=== PATIENT | female | born 1945 | race Caucasian/White ===

== ENCOUNTER 2025-02-14 14:10 | Outpatient (CLI) | payer MEDICARE, SELFPAY ==
--- OUTSIDE RECORDS SUMMARY | 2025-02-14 14:23 | XMS_ITS | Encounter Summary ---
Author Organization [facility] Address 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) Social History Tobacco Use Types Packs/Day Years Used Date Smoking Tobacco: Never Assessed Comments Unknown Sex and Gender Information Value Date Recorded Sex Assigned at Not on file Legal Sex Female 4:22 AM LOSS CONTROL ENGINEER Gender Identity Not on file Sexual Orientation Not on file documented as of this encounter Plan of Treatment Upcoming Encounters Date Type Department Care Team (Late st Contact Info) Description 02/22/2025 11:15 AM CDT Office Visit [facility] Oncology and Hematology - [place]ui [address] [facility] [address] [place] [address] Sinan Vicente MD [address] [facility] [address] [place] [address] documented as of this encounter Visit Diagnoses Diagnosis Malignant neoplasm of upper-outer quadrant of female breast (CMS/HCC) Malignant neoplasm of upper-outer quadrant of female breast documented in this encounter Care Teams Science Manager Relationship Specialty Start Date End Date Master Valentin MD [address] [place] [address] PCP - General 05/23/15 documented as of this encounter
--- OUTSIDE RECORDS SUMMARY | 2025-02-14 14:23 | XMS_ITS | Encounter Summary ---
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, right (CMS/HCC) (Primary Dx) Social History Tobacco Use Types Packs/Day Years Used Date Smoking Tobacco: Former Cigarettes 0 07/14/1970 - 07/14/1989 Smokeless Tobacco: Never Comments:1989 Alcohol Use Standard Drinks/Week Comments No 0 (1 standard drink = 0.6 oz pur e alcohol) Comments No Sex and Gender Information Value Date Recorded Sex Assigned at Not on file Legal Sex Female 4:22 AM GRADUATE STUDENT INSTRUCTOR Gender Identity Not on file Sexual Orientation Not on file Occupation Industry Job Start Date Job End Date Not on file Not on file Not on file Not on file documented as of this encounter Plan of Treatment Upcoming Encounters Date Type Department Care Team (Late Contact Info) Description 02/22/2025 11:15 AM CDT Office Visit [facility] Oncology and Hematology - Rui [address] [place] [phone] Sinan Vicente MD [address] [facility] [address] [place] [address] Scheduled Orders Name Type Priority Associated Diagnoses Orde r Schedule CANCER ANTIGEN 15-3 Lab Routine 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
--- OUTSIDE RECORDS SUMMARY | 2025-02-14 14:23 | XMS_ITS | Encounter Summary ---
Author Organization [facility] Address [address] [place] [address] Care Team Providers Care Equipment Sales Specialist Name Role Phone Master Valentin MD Primary Care Provider +1- [phone] Encounter Details Date Type Department Care Team (Latest Contact Info) Description 03/11/2000 Outpatient Historical HIS X/RAY-LAB [facility] Master Valentin MD [address] [place] [address] Other screening mammogram (Primary Dx) Social History Tobacco Use Types Packs/Day Years Used Date Smoking Tobacco: Never Assessed Comments Unknown Sex and Gender Information Value Date Recorded Sex Assigned at Not on file Legal Sex Female 4:22 AM WATER QUALITY ASSISTANT Gender Identity Not on file Sexual Orientation Not on file documented as of this encounter Plan of Treatment Upcoming Encounters Date Type Department Care Team (Late st Contact Info) Description 02/22/2025 11:15 AM CDT Office Visit [facility] Oncology and Hematology - Rui [address] [facility] [address] [place] [address] Sinan Vicente MD [address] [facility] [address] [place] [address] documented as of this encounter Visit Diagnoses Diagnosis Other screening mammogram- Primary documented in this encounter Care Teams Equipment Sales Specialist Relationship Specialty Start Date End Date Master Valentin MD [address] [place] [address] PCP - General 05/23/15 documented as of this encounter
--- OUTSIDE RECORDS SUMMARY | 2025-02-14 14:23 | XMS_ITS | Encounter Summary ---
Author Organization [facility] Address 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) Social History Tobacco Use Types Packs/Day Years Used Date Smoking Tobacco: Former Cigarettes Comments:1989 Alcohol Use Standard Drinks/Week Comments No 0 (1 standard drink = 0.6 oz pur e alcohol) Comments No Sex and Gender Information Value Date Recorded Sex Assigned at Not on file Legal Sex Female 4:22 AM TREATMENT TECHNICIAN Gender Identity Not on file Sexual Orientation Not on file documented as of this encounter Plan of Treatment Upcoming Encounters Date Type Department Care Team (Late st Contact Info) Description 02/22/2025 11:15 AM CDT Office Visit [facility] Oncology and Hematology - Rui [address] [facility] [address] [place] [address] Sinan Vicente MD [address] [facility] [address] [place] [address] documented as of this encounter Visit Diagnoses Diagnosis Malignant neoplasm of upper-outer quadrant of female breast (CMS/HCC) Malignant neoplasm of upper-outer quadrant of female breast documented in this encounter Care Teams Workflow Developer Relationship Specialty Start Date End Date Master Valentin MD [address] [place] [address] PCP - General 05/23/15 documented as of this encounter
--- OUTSIDE RECORDS SUMMARY | 2025-02-14 14:23 | XMS_ITS | Encounter Summary ---
Author Organization [facility] Address [address] [place] [address] Care Team Providers Care Green Hide Inspector Name Role Phone Master Valentin MD Primary Care Provider +1- [phone] Encounter Details Date Type Department Care Team (Latest Contact Info) Description 07/31/2001 Outpatient Historical HIS IMG-LAB [facility] Master Valentin MD [address] [place] [address] SCREENING MAMM-MAILG NEOPL-OTHER (Primary Dx) Social History Tobacco Use Types Packs/Day Years Used Date Smoking Tobacco: Never Assessed Comments Unknown Sex and Gender Information Value Date Recorded Sex Assigned at Not on file Legal Sex Female 4:22 AM RISK MANAGEMENT CONSULTANT Gender Identity Not on file Sexual Orientation Not on file documented as of this encounter Plan of Treatment Upcoming Encounters Date Type Department Care Team (Late st Contact Info) Description 02/22/2025 11:15 AM CDT Office Visit [facility] Oncology and Hematology - Rui [address] [facility] [address] [place] [address] Sinan Vicente MD [address] [facility] [address] [place] [address] documented as of this encounter Visit Diagnoses Diagnosis Other screening mammogram- Primary documented in this encounter Care Teams Green Hide Inspector Relationship Specialty Start Date End Date Master Valentin MD [address] [place] [address] PCP - General 05/23/15 documented as of this encounter
--- OUTSIDE RECORDS SUMMARY | 2025-02-14 14:23 | XMS_ITS | Encounter Summary ---
Author Organization [facility] Address 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) Social History Tobacco Use Types Packs/Day Years Used Date Smoking Tobacco: Never Assessed Comments Unknown Sex and Gender Information Value Date Recorded Sex Assigned at Not on file Legal Sex Female 4:22 AM SUPERVISOR MODERN LANGUAGES Gender Identity Not on file Sexual Orientation Not on file documented as of this encounter Plan of Treatment Upcoming Encounters Date Type Department Care Team (Late st Contact Info) Description 02/22/2025 11:15 AM CDT Office Visit [facility] Oncology and Hematology - Rui [address] [facility] [address] [place] [address] Sinan Vicente MD [address] [facility] [address] [place] [address] documented as of this encounter Visit Diagnoses Diagnosis Malignant neoplasm of upper-outer quadrant of female breast (CMS/HCC) Malignant neoplasm of upper-outer quadrant of female breast documented in this encounter Care Teams Race Starter Relationship Specialty Start Date End Date Master Valentin MD [address] [place] [address] PCP - General 05/23/15 documented as of this encounter
--- OUTSIDE RECORDS SUMMARY | 2025-02-14 14:23 | XMS_ITS ---
Author Organization [employer] [address] [place] [address] [place] [address] Care Team Providers Care Rivet Tapping Machine Operator Name Role Phone Master Valentin MD Primary Care Provider +1- [phone] Active Problems Patient Care Coordination No te Formatting of this note migh t be different from the original. 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 Past Treatment and Therapy Plans No past plan information found. Lifetime Dose Tracking * Chemical Lifetime Dose Automatic Entry Manual Entr y Effective Dose 20.2 mSv 20.2 mSv 0 mSv Total DLP 916 DLP 916 DLP 0 DLP CTDIvol Max 16.6 mGy 16.6 mGy 0 mGy CTDIvol Min 13.4 mGy 13.4 mGy 0 mGy
--- OUTSIDE RECORDS SUMMARY | 2025-02-14 14:23 | XMS_ITS | Encounter Summary ---
Author Organization [facility] Address [address] [place] [address] Care Team Providers Care Call Manager Name Role Phone Master Valentin MD Primary Care Provider +1- [phone] Encounter Details Date Type Department Care Team (Latest Contact Info) Description 10/22/[address] 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 Oncology and Hematology - Rui [address] [facility] [address] [place] [address] Sinan Vicente MD [address] [facility] [address] [place] [address] documented as of this encounter Visit Diagnoses Diagnosis Malignant neoplasm of upper-outer quadrant of female breast (CMS/HCC) Malignant neoplasm of upper-outer quadrant of female breast documented in this encounter Care Teams Call Manager Relationship Specialty Start Date End Date Master Valentin MD [address] [place] [address] PCP - General 05/23/15 documented as of this encounter
--- OUTSIDE RECORDS SUMMARY | 2025-02-14 14:23 | XMS_ITS | Encounter Summary ---
Author Organization [facility] Address [address] [facility] Attn: Epic Prelude ADT LESLY HERNANDEZ [address] Care Team Providers Care Environmental Technical Officer Name Role Phone Master Valentin MD Primary Care Provider +1- [phone] Encounter Details Date Type Department Care Team (Late st Contact Info) Description 11/09/1998 Outpatient Historical Social History Tobacco Use Types Packs/Day Years Used Date Smoking Tobacco: Never Assessed Comments Unknown Sex and Gender Information Value Date Recorded Sex Assigned at Not on file Legal Sex Female 4:22 AM EDUCATIONAL TECHNOLOGIST Gender Identity Not on file Sexual Orientation Not on file documented as of this encounter Plan of Treatment Upcoming Encounters Date Type Department Care Team (Late st Contact Info) Description 02/22/2025 11:15 AM CDT Office Visit [facility] Oncology and Hematology - Rui [address] [facility] [address] [place] [address] Sinan Vicente MD [address] [facility] [address] [place] [address] documented as of this encounter Visit Diagnoses Not on filedocumented in this encounter Care Teams Environmental Technical Officer Relationship Specialty Start Date End Date Master Valentin MD [address] [place] [address] PCP - General 05/23/15 documented as of this encounter
--- OUTSIDE RECORDS SUMMARY | 2025-02-14 14:23 | XMS_ITS | Encounter Summary ---
Author Organization [facility] Address [address] [place] [address] Care Team Providers Care Hide Trimmer Name Role Phone Master Valentin MD Primary Care Provider +1- [phone] Encounter Details Date Type Department Care Team (Latest Contact Info) Description 08/12/2008 Outpatient Historical [facility] Radiation Oncology [place] [address] [place] [phone] Marcie Berman MD NO ADDRESS ON FILE Master Valentin MD [address] [place] [address] Malignant Neoplasm of Upper-Outer Quadrant of Female Breast (CMS/HCC) Social History Tobacco Use Types Packs/Day Years Used Date Smoking Tobacco: Never Assessed Comments Unknown Sex and Gender Information Value Date Recorded Sex Assigned at Not on file Legal Sex Female 4:22 AM MANAGER OF CORPORATE COMMUNICATIONS Gender Identity Not on file Sexual Orientation Not on file documented as of this encounter Plan of Treatment Upcoming Encounters Date Type Department Care Team (Late st Contact Info) Description 02/22/2025 11:15 AM CDT Office Visit [facility] Oncology and Hematology - Rui [address] [facility] [address] [place] [address] Sinan Vicente MD [address] [facility] [address] [place] [address] documented as of this encounter Visit Diagnoses Diagnosis Malignant neoplasm of upper-outer quadrant of female breast (CMS/HCC) Malignant neoplasm of upper-outer quadrant of female breast documented in this encounter Care Teams Hide Trimmer Relationship Specialty Start Date End Date Master Valentin MD [address] [place] [address] PCP - General 05/23/15 documented as of this encounter
--- OUTSIDE RECORDS SUMMARY | 2025-02-14 14:23 | XMS_ITS | Encounter Summary ---
Author Organization [facility] Address [address] [place] [address] Care Team Providers Care Manager Purchasing Name Role Phone Master Valentin MD Primary Care Provider +1- [phone] Encounter Details Date Type Department Care Team (Latest Contact Info) Description 06/22/2008 Outpatient Historical [facility] Radiation Oncology [place] [address] [place] [phone] Marcie Berman MD NO ADDRESS ON FILE Master Valentin MD [address] [place] [address] Malignant Neoplasm of Upper-Outer Quadrant of Female Breast (CMS/HCC) Social History Tobacco Use Types Packs/Day Years Used Date Smoking Tobacco: Never Assessed Comments Unknown Sex and Gender Information Value Date Recorded Sex Assigned at Not on file Legal Sex Female 4:22 AM EMPLOYMENT TRAINER Gender Identity Not on file Sexual Orientation Not on file documented as of this encounter Plan of Treatment Upcoming Encounters Date Type Department Care Team (Late st Contact Info) Description 02/22/2025 11:15 AM CDT Office Visit [facility] Oncology and Hematology - Rui [address] [facility] [address] [place] [address] Sinan Vicente MD [address] [facility] [address] [place] [address] documented as of this encounter Visit Diagnoses Diagnosis Malignant neoplasm of upper-outer quadrant of female breast (CMS/HCC) Malignant neoplasm of upper-outer quadrant of female breast documented in this encounter Care Teams Manager Purchasing Relationship Specialty Start Date End Date Master Valentin MD [address] [place] [address] PCP - General 05/23/15 documented as of this encounter
--- OUTSIDE RECORDS SUMMARY | 2025-02-14 14:23 | XMS_ITS | Clinical Summary ---
Author Organization [facility] Address [address] [place] [address] Care Team Providers Care Hunting Sales Associate Name Role Phone Unavailable Primary Care Provider Unavailabl e Social History Tobacco Use Types Packs/Day Years Used Date Smoking Tobacco: Never Assessed Comments Unknown Sex and Gender Information Value Date Recorded Sex Assigned at Not on file Legal Sex Female 4:22 PM CDT Gender Identity Not on file Sexual Orientation Not on file Plan of Treatment Health Maintenance Due Date Last Done Comments Hepatitis C 1963 DTaP, Tdap and Td Vaccines ( 1 - Tdap) 02/22/1964 Pneumococcal Vaccine: 50+ Ye ars (1 of 1 - PCV) 1995 Zoster Vaccines (1 of 2) 1995 Dexa Scan (General) 2010 RSV Immunization or 60+ Years (1 - 1-dose 75+ series) 02/22/2020 COVID-19 Vaccine (2023-2 5 season) 2024 Meningococcal B Vaccine Aged Out No l onger eligible based on patient's age to complete this topic Meningococcal Vaccine Aged Out No daniel cheryl eligible based on patient's age to complete this topic RSV Immunizations Under 20 Months Aged Out No longer eligible based on patient's age to complete this topic
--- OUTSIDE RECORDS SUMMARY | 2025-02-14 14:23 | XMS_ITS | Encounter Summary ---
Author Organization [facility] Address 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 (CMS/HCC) Social History Tobacco Use Types Packs/Day Years Used Date Smoking Tobacco: Never Assessed Comments Unknown Sex and Gender Information Value Date Recorded Sex Assigned at Not on file Legal Sex Female 4:22 AM ALMOND PASTE MIXER Gender Identity Not on file Sexual Orientation Not on file documented as of this encounter Plan of Treatment Upcoming Encounters Date Type Department Care Team (Late st Contact Info) Description 02/22/2025 11:15 AM CDT Office Visit [facility] Oncology and Hematology - Rui [address] [facility] [address] [place] [address] Sinan Vicente MD [address] [facility] [address] [place] [address] documented as of this encounter Procedures Procedure Name Priority Date/Time Associated Diagnosis Comments CANCER ANTIGEN 27-29 Routine 11/29/2008 9:49 PM CDT COMPREHENSIVE METABOLIC PANEL Routine 11/29/2008 9:49 PM CDT documented in this encounter Results * CANCER ANTIGEN 27-29 (11/29/2008 9:49 PM CDT) Pathologist [facility] CA 27-29 14 <38 U/mL [facility] Comment: THIS TEST WAS PERFORMED USING THE SIEMENS (DAVID) CHEMILUMINESCENT METHOD. VALUES OBTAINED FROM DIFFERENT ASSAY METHODS CANNOT BE USED INTERCHANGEABLY. CA27.29 LEVELS, REGARDLESS OF VALUE, SHOULD NOT BE INTERPRETED ABSOLUTE EVIDENCE OF THE PRESENCE OR ABSENCE OF DISEASE. Lab test performed by: [employer] [facility] [address] [address] [place] [place] [address] JANEEN CRAWFORD MDThitamera test was performed using the [employer]David CA 27.29 Assay. 11/29/2008 9:49 PM CDT 11/29/2008 9:57 PM CDT us Nola Morgan MD CHEMISTRY ORDERABLES COM Carolyn l Result INTERFACE SYSTEM Refer to clinic/hospital department [facility] CLIA# [id number] [address] [facility] [place] [address] * (ABNORMAL) COMPREHENSIVE METABOLIC PANEL (11/29/2008 9:49 PM CDT) [facility] CREATININE 0.77 0.51 - 0.95 mg/dL [facility] ALT 28 0 - 31 U/L [facility] SODIUM 139 135 - 145 mmol/L [facility] ALKALINE PHOSPHATASE 86 35 - 104 U/L [facility] CO2 25 22 - 30 mmol/L [facility] BILIRUBIN TOTAL 0.3 0.2 - 1.0 mg/dL [facility] POTASSIUM 4.1 3.5 - 4.9 mmol/L [facility] TOTAL PROTEIN 7.2 6.3 - 8.6 g/dL [facility] GLUCOSE 100(H) 65 - 99 mg/dL [facility] AST 26 12 - 32 U/L [facility] BUN 13 6 - 20 mg/dL [facility] CALCIUM 9.8 8.6 - 10.2 mg/dL [facility] ALBUMIN 4.5 3.4 - 4.8 g/dL [facility] CHLORIDE 102 96 - 108 mmol/L [facility] GFR, >60 >=60 mL/min/1. 7 sq meter [facility] GFR >60 >=60 mL/min/1. 7 sq meter [facility] Comment: Modification of Diet in Renal Disease (MDRD) study formula. Estimated GFR rate interpretative information for both Americans and non- Americans is available on the [facility] Intranet at: [email or web address] Select: Lab Policies and Procedures Select: Reference Ranges - GFR Blood specimen (specimen) 11/29/2008 9:49 PM CDT 11/29/2008 9:49 PM CDT us Nola Morgan MD CHEMISTRY ORDERABLES Edited INTERFACE SYSTEM Refer to clinic/hospital department [facility] CLIA# [id number] [address] [place] [address] documented in this encounter Visit Diagnoses Diagnosis Malignant neoplasm of upper-outer quadrant of female breast (CMS/HCC) Malignant neoplasm of upper-outer quadrant of female breast documented in this encounter Care Teams Air Defense Control Officer Relationship Specialty Start Date End Date Master Valentin MD [address] [place] [address] PCP - General 05/23/15 documented as of this encounter
--- OUTSIDE RECORDS SUMMARY | 2025-02-14 14:23 | XMS_ITS | Encounter Summary ---
Author Organization [facility] Address [address] [place] [address] Care Team Providers Care Venetian Blind Mechanic Name Role Phone Master Valentin MD Primary Care Provider +1- [phone] Encounter Details Date Type Department Care Team (Latest Contact Info) Description 06/23/[address] 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 Oncology and Hematology - Rui [address] [facility] [address] [place] [address] Sinan Vicente MD [address] [facility] [address] [place] [address] documented as of this encounter Visit Diagnoses Diagnosis Malignant neoplasm of upper-outer quadrant of female breast (CMS/HCC) Malignant neoplasm of upper-outer quadrant of female breast documented in this encounter Care Teams Venetian Blind Mechanic Relationship Specialty Start Date End Date Master Valentin MD [address] [place] [address] PCP - General 05/23/15 documented as of this encounter
--- OUTSIDE RECORDS SUMMARY | 2025-02-14 14:23 | XMS_ITS | Encounter Summary ---
Author Organization [facility] Address 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 Gender Identity Not on file Sexual Orientation Not on file documented as of this encounter Plan of Treatment Upcoming Encounters Date Type Department Care Team (Late st Contact Info) Description 02/22/2025 11:15 AM CDT Office Visit [facility] Oncology and Hematology - Rui [address] [facility] [address] [place] [address] Sinan Vicente MD [address] [facility] [address] [place] [address] documented as of this encounter Visit Diagnoses Diagnosis Symptomatic menopausal or female climacteric states- Primary documented in this encounter Care Teams Communications Executive Relationship Specialty Start Date End Date Master Valentin MD [address] [place] [address] PCP - General 05/23/15 documented as of this encounter
--- OUTSIDE RECORDS SUMMARY | 2025-02-14 14:23 | XMS_ITS | Clinical Summary ---
Author Organization [employer] [address] [place] [address] [place] [address] Care Team Providers Care Outpatient Phlebotomist Name Role Phone Master Valentin MD Primary Care Provider +1- [phone] Allergies Active Allergy Reactions Criticality Noted Date Comments Iodine Swelling High 10/19/2018 Latex Rash Low 09/14/2020 Nickel Hives,Rash,Swelling High 04/02/2016 Sulfa (Sulfonamide Antibiotics) Unknown 01/19/2009 As a child Sulfacetamide Sodium Nausea and Vomiting Low 2015 Medications CHOLECALCIFEROL (VITAMIN D-3 ORAL) Take by mouth. Activ e MAGNESIUM CARBONATE ORAL Take by mouth daily. Active multivitamin (DAILY-MARY) Oral tablet Take 1 Tab by mouth daily. Active OTHER MISTLETOE INJECTIONS Active BETA-GLUCAN,1-3, 1-4, BULK, MISC by Misc.(Non-Drug; Combo Route) route. Active LACTOBAC CMB #3/FOS/PANTETHIN E (PROBIOTIC & ACIDOPHILUS ORAL) Take by mouth. Activ e CALCIUM CARBONATE/VITAMI N D3 (CALCIUM + D ORAL) Take by mouth. Activ e TURMERIC ROOT EXTRACT ORAL Take by mouth. Ac tive loperamide (IMODIUM) 2 mg capsule Take 1 Capsule (2 mg) by mouth every 3 hours as needed for Diarrhea/Loose Stools. 30 Capsule 3 3 Active amoxicillin (AMOXIL) 500 mg capsule Take 4 capsules (2,000 mg) by mouth 1 hour prior to appointment. 4 Capsule 11/07/2022 4:51 PM CDT 3 Active Additional Information Patient taking differently: Take 4 capsules (2,000 mg) by mouth 1 hour prior to appointment.Only before dental appt, Reported on 11/10/2024 latanoprost (XALATAN) 0.005 % solution Administer 1 Drop in both eyes daily at bedtime. 2.5 mL 4 05/03/2023 11:47 AM CDT 3 Active latanoprost (XALATAN) 0.005 % solution INSTILL ONE DROP INTO BOTH EYES EVERY NIGHT AT BEDTIME DIRECTED 7.5 mL 4 10/28/2023 3:01 PM CDT 3 Active latanoprost (XALATAN) 0.005 % solution Administer 1 Drop in both eyes daily at bedtime. 7.5 mL 3 3 Active Insulin Syringe-Needle U-100 (Easy Touch Insulin Syringe) 1 mL 29 gauge x 1/2 Syringe Use as directed for 2 injections three times weekly 50 Each 3 03/31/2024 3:20 PM CDT 4 Active amoxicillin (AMOXIL) 500 mg capsule Take 4 capsules before dental work as directed (30-60 min before) 20 Capsule 2 10/30/2024 2:46 PM CDT 5 Active exemestane (AROMASIN) 25 mg tablet TAKE ONE TABLET BY MOUTH ONCE DAILY AFTER BREAKFAST 30 Tablet 6 02/07/2025 3:18 PM CDT 5 11/11/19 26 Active palbociclib 100 mg tablet Take 1 Tablet (100 mg) by mouth daily for 21 days on, followed by 7 days off 21 Tablet 5 5 Active latanoprost (XALATAN) 0.005 % solution INSTILL ONE DROP INTO BOTH EYES ONCE AT BEDTIME 7.5 mL 3 12/15/2024 3:03 PM CDT 5 Active Active Problems Patient Care Coordination No te Formatting of this note migh t be different from the original. 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, right (CMS/HCC) (Primary Dx) 12/07/2024 External Device Data STL ABSTRACTION Provider, Abstract 12/02/2024 External Device Data STL ABSTRACTION Provider, Abstract 12/01/2024 External Device Data STL ABSTRACTION Provider, Abstract 11/30/2024 External Device Data STL ABSTRACTION Provider, Abstract from Last 3 Months Immunizations Immunization Administration Dates Next Due (SPIKEVAX) (12 YRS UP PRIMAR Y SERIES) COVID-19 VACCINE - MRNA-1273(PF) 100 MCG/0.5 ML IM SUSP 10/29/2021,07/02/2021,06/11/2021,2020,11/14/2020 Family History Medical History Relation Name Comments Cancer Father liver Pancreatic Cancer Father Heart Disease Maternal Grandfather Other Mother diabetes Breast Cancer Neg Hx Ovarian Cancer Neg Hx Uterine Cancer Neg Hx Relation Name Status Comments Father Maternal Grandfather Mother Social History Tobacco Use Types Packs/Day Years Used Date Smoking Tobacco: Former Cigarettes 0 07/14/1970 - 07/14/1989 Smokeless Tobacco: Never Tobacco Cessation:Counseling Given: Not Answered Comments:1989 Alcohol Use Standard Drinks/Week Comments No 0 (1 standard drink = 0.6 oz pur e alcohol) Comments No Sex and Gender Information Value Date Recorded Sex Assigned at Not on file 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 Gender Identity Not on file Sexual Orientation Not on file Occupation Industry Job Start Date Job End Date Not on file Not on file Not on file Not on file Last Filed Vital Signs Vital Sign Reading Time Taken Comments Blood Pressure 141/77 12/13/2024 10:42 AM CDT Pulse 82 12/13/2024 10:37 AM CDT Temperature 36.8 C (98.2 F) 12/13/2024 10:37 AM CDT Respiratory Rate 15 12/13/2024 10:3 7 AM CDT Oxygen Saturation 96% 12/13/2024 10: 37 AM CDT Inhaled Oxygen Concentration - - Weight 84.3 kg (185 lb 12.8 oz) 025 10:37 AM CDT Height 162.6 cm (5' 4) 12/13/2024 10:3 7 AM CDT Body Mass Index 31.89 12/13/2024 10:37 AM CDT Plan of Treatment Upcoming Encounters Date Type Department Care Team (Late st Contact Info) Description 02/22/2025 11:15 AM CDT Office Visit [facility] Oncology and Hematology - Rui [address] [facility] [address] [place] [address] Sinan Vicente MD [address] [facility] [address] [place] [address] Health Maintenance Due Date Last Done Comments DTAP/TDAP/TD VACCINES (1 - Tdap) 02/22/1964 PNEUMOCOCCAL VACCINE 50+ YEA RS (1 of 2 - PCV) 02/22/1964 ZOSTER VACCINE (1 of 2) 02/22/1964 RSV VACCINE (60+ or ) (1 - 1-dose 75+ series) 02/22/2020 COVID-19 Vaccine (2023-2 5 season) 2024 04/23/2022, 10/29/2021, 07/02/2021, Additional history exists Medicare Ad[place]age ([place]) Preventative Visit/Annual Wellness Visit 07/14/2024 INFLUENZA VACCINE (#1) 2025 OSTEOPOROSIS SCREENING 07/22/2027 3, 03/02/2014, 02/24/2012, Additional history exists Procedures Procedure Name Priority Date/Time Associated Diagnosis Comments CANCER ANTIGEN 15-3 Routine 01/31/2025 1 :54 PM CDT 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 Values obtained from different assay methods cannot be used interchangeably. CA 15-3 levels, regardless of value, should not be interpreted as absolute evidence of the presence or absence of disease. Test Performed at: [facility] [address] [place] [address] Topher Lang MD Blood 01/31/2025 1:54 PM CDT 01/31/2025 1:54 PM CDT Sinan Vicente MD CHEMISTRY ORDERABLES Final Resu lt [facility] [phone] [facility] [address] [place] [address] * XR DEXA BONE DENSITY AXIAL 1 OR MORE SITES (07/22/2022 9:18 AM PEANUT ROASTER) Anatomical Region Laterality Modality Digital Radiogra phy 07/22/2022 9:18 AM PEANUT ROASTER Impressions 07/22/2022 9:30 AM PEANUT ROASTER IMPRESSION: This is a summary page. Please refer to the complete detailed report found in the Imaging Section of the [facility] EMR. Osteopenia. Lumbar Spine: T-Score: 0.1 Right Femoral Neck: T-Score: -0.4 Right Total Femur: T-Score: -0.7 Right Forearm: T-Score: -1.9 Statistical change: No significant change in BMD since the prior exam. FRAX FRACTURE RISK ASSESSMENT: (Only valid Between 40-89 Years Of Age) Risk factors: None. 10 Year Probability Of Fracture Major Osteoporotic: 8.6 % Hip: 1.1 % Comparison population: [place], Race: White A major osteoporotic fracture is defined as a fracture of the spine, forearm, hip or shoulder. Definitions: Normal: T-score above -1.0 Osteopenia T-score less than -1.0 and above -2.5 Osteoporosis: T-score <= -2.5 Follow-up Recommendations: Patients without high risk factors for osteoporosis T-score -1.0 to -1.5 - Consider repeat BMD in 5-10 years T-score -1.5 to - 2.0 - Consider repeat BMD in 3-5 years T-score -2.0 to - 2.5 - Consider repeat BMD every 2 years Patients on treatment for osteoporosis 1-2 years after initiation of treatment and every 2 years thereafter [address] Jabier Sweeney MD DICTATION LOCATION: 07/22/2022 9:30 AM PEANUT ROASTER EXAMINATION: BONE DENSITY STUDY (DXA) DATE: 07/22/2022 9:18 AM HISTORY: 77 years Female. Postmenopausal. Left hip replacement. PROCEDURE: Planar images of the lumbar spine, hip(s) and forearm(s) using a [employer] DEXA scanner for bone mineral density determination (BMD). Prior bone density: 03/02/2014 FINDINGS: Lumbar Spine (L1-L2): T-Score: 0.1 1.188 g/sq cm Prior: 1.170 g/sq cm Right Femoral Neck: T-Score: -0.4 0.983 g/sq cm Prior: 0.886 g/sq cm Right Total Femur: T-Score: -0.7 Right 33% Radius: T-Score: -1.9 0.706 g/sq cm INCIDENTAL FINDINGS: L3-L4 excluded because of statistical variation. Procedure Note Jabier Sweeney MD - 07/22/2022 EXAMINATION: BONE DENSITY STUDY (DXA) DATE: 07/22/2022 9:18 AM HISTORY: 77 years Female. Postmenopausal. Left hip replacement. PROCEDURE: Planar images of the lumbar spine, hip(s) and forearm(s) using a [employer] DEXA scanner for bone mineral density determination (BMD). Prior bone density: 03/02/2014 FINDINGS: Lumbar Spine (L1-L2): T-Score: 0.1 1.188 g/sq cm Prior: 1.170 g/sq cm Right Femoral Neck: T-Score: -0.4 0.983 g/sq cm Prior: 0.886 g/sq cm Right Total Femur: T-Score: -0.7 Right 33% Radius: T-Score: -1.9 0.706 g/sq cm INCIDENTAL FINDINGS: L3-L4 excluded because of statistical variation. IMPRESSION: This is a summary page. Please refer to the complete detailed report found in the Imaging Section of the [facility] EMR. Osteopenia. Lumbar Spine: T-Score: 0.1 Right Femoral Neck: T-Score: -0.4 Right Total Femur: T-Score: -0.7 Right Forearm: T-Score: -1.9 Statistical change: No significant change in BMD since the prior exam. FRAX FRACTURE RISK ASSESSMENT: (Only valid Between 40-89 Years Of Age) Risk factors: None. 10 Year Probability Of Fracture Major Osteoporotic: 8.6 % Hip: 1.1 % Comparison population: [place], Race: White A major osteoporotic fracture is defined as a fracture of the spine, forearm, hip or shoulder. Definitions: Normal: T-score above -1.0 Osteopenia T-score less than -1.0 and above -2.5 Osteoporosis: T-score <= -2.5 Follow-up Recommendations: Patients without high risk factors for osteoporosis T-score -1.0 to -1.5 - Consider repeat BMD in 5-10 years T-score -1.5 to - 2.0 - Consider repeat BMD in 3-5 years T-score -2.0 to - 2.5 - Consider repeat BMD every 2 years Patients on treatment for osteoporosis 1-2 years after initiation of treatment and every 2 years thereafter D[address] by Dr. Jabier Sweeney MD DICTATION LOCATION: 1 Carina Klein MD DIAGNOSTIC IMAGING ORDER MARTHA Final Result from Last 3 Months or Most Recently Relevant to Health Maintenance Insurance [facility] [employer] [employer] [employer] Care Teams Outpatient Phlebotomist Relationship Specialty Start Date End Date Master Valentin MD [address] [place] [address] PCP - General 05/23/15
--- OUTSIDE RECORDS SUMMARY | 2025-02-14 14:23 | XMS_ITS | Clinical Summary ---
Author Organization [facility] Address [address] [place], [place] [address] [address] Care Team Providers Care Marine Reporter Name Role Phone Master Valentin MD Primary Care Provider [phone]- [phone] Yaya PINON MD, [place] Unavailable [phone] Source Comments [facility],non-owned Affiliates and Associated Physician Practices is amultiple site organization consisting of ambulatory clinics and hospital sitesin [place], [place], [place] and [place]. This disclosure is being madepursuant to the Care Everywhere program and may not contain all information available regarding this patient. Last updated 18.[facility] Allergies Active Allergy Reactions Criticality Noted Date Comments Sulfa Drugs 11/06/2015 Medications * Be aware that medications may not be up to date on this document. Alwaysverify current medications with the patient. 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 Gender Identity Not on file Sexual Orientation Not on file Last Filed Vital Signs Vital Sign Reading Time Taken Comments Blood Pressure - - Pulse - - Temperature - - Respiratory Rate - - Oxygen Saturation - - Inhaled Oxygen Concentration - - Weight 81.6 kg (180 lb) 10/02/2015 11:29 AM CDT Height 162.6 cm (5' 4) 10/02/2015 11:29 AM CDT Body Mass Index 30.9 10/02/2015 11:29 AM CDT Plan of Treatment Health Maintenance Due Date Last Done Comments BONE DENSITY TESTING 1945 DTAP/TDAP/TD VACCINES (1 - Tdap) 02/22/1964 PNEUMOCOCCAL VACCINE 50+ (1 of 1 - PCV) 1995 ZOSTER VACCINE (1 of 2) 1995 Respiratory Syncytial Virus (RSV) Vaccine Pt: or over 60 yrs (1 - 1-dose 75+ series) 02/22/2020 COVID-19 VACCINE (1 - 2023-2 5 season) 2024 DEPRESSION SCREENING 07/14/2024 INFLUENZA VACCINE (#1) 2025 HEPATITIS B VACCINE Aged Out No longe r eligible based on patient's age to complete this topic HIB VACCINE Aged Out No longer eligi ble based on patient's age to complete this topic HPV VACCINE Aged Out No longer eligi ble based on patient's age to complete this topic MENINGOCOCCAL (Group B) VACC INE SHARED DECISION-MAKING Aged Out No longer eligibl e based on patient's age to complete this topic MENINGOCOCCAL GROUPS A/C/Y/W VACCINE Aged Out No longer eligible b ased on patient's age to complete this topic Insurance MANAGED MEDICARE ADV Care Teams Marine Reporter Relationship Specialty Start Date End Date Master Valentin MD [address] [facility], [address] PCP - General Family Medicine 09/21/[place] [address] [address] [place] [address] Orthopedic Surgery 11/06/15
[2025-02-14 14:24] LABS: Hematocrit 37.7 % (37.0-47.0); Hemoglobin 12.9 g/dL (12.0-15.0); Immature Granulocyte Percent A 0.4 % (0-0.5); Lymphocytes Absolute Auto 0.80 K/mm3 (0.9-3.2); Mean Corpuscular HGB Conc 34.2 g/dl (32-36); Mean Corpuscular Hemoglobin 36.2 pg (26-34); Mean Corpuscular Volume 105.9 fl (80-100); Nucleated Red Blood Cells Absolute Auto 0.000 K/mm3 (0.0-0.012); Nucleated Red Blood Cells Perc 0.0 % (0.0-0.2); Platelet Count Result 222 k/mm3 (150-375); Red Blood Count 3.56 M/mm3 (4.2-5.4); White Blood Count 2.4 K/mm3 (4.5-10.0)
[2025-02-14 14:31] LABS: Schistocytes None Seen
[2025-02-14 14:34] LABS: Macrocytosis 1+ (NORMAL)
[2025-02-14 15:35] LABS: Alanine Aminotransferase 37 U/L (6-35); Albumin Level 4.3 g/dL (3.5-5.1); Alkaline Phosphatase 64 U/L (38-126); Anion Gap 4 mmol/L (4-12); Aspartate Amino Transferase 40 U/L (14-36); Bilirubin,Total 0.5 mg/dL (0.2-1.3); Blood Urea Nitrogen 17 mg/dL (7-17); Calcium 9.7 mg/dL (8.4-10.2); Carbon Dioxide 28 mmol/L (22-30); Chloride 103 mmol/L (98-107); Estimated Glomerular Filt Rate > 60; Glucose 122 mg/dL (65-110); Potassium 4.8 mmol/L (3.4-5.0); Sodium 135 mmol/L (137-145); Total Protein 6.9 g/dL (6.3-8.2)
== END 2025-02-14 14:11 | disposition home or self-care (01) ==
LOC: ANHLAB 14:12
PROVIDERS: Visit Provider Internal Medicine Hematology & Oncology
DX: C50.011 Malignant neoplasm of nipple and areola, right female breast (principal)
CPT/HCPCS: 36415; 80053; 85025; 86300

== ENCOUNTER 2025-03-16 12:50 | Outpatient (CLI) | payer MEDICARE, SELFPAY ==
--- NOTE | ~2025-03-16 | DEXA_ITS ---
Bone Density Report Name: TABATHA LALA Age: 80 Sex: Female Ethnicity: White Date of : 1945 Indication: postmenopausal; screening for osteoporosis; height loss; prior fracture; cancer; Referring Provider: ALEXEY COLES Study: Bone densitometry was performed. Exam Date: March 16, 2025 Accession number: [id number] Bone Density: Region BMD T-score Z-score Classification AP Spine(L1-L4) 1.207 1.5 4.1 Normal Femoral Neck (Right) 0.664 -1.7 0.6 Osteopenia Total Hip (Right) 0.861 -0.7 1.4 Normal World Health Organization criteria for BMD impression classify patients as: Normal (T-score at or above -1.0), Osteopenia (T-score between -1.0 and -2.5), or Osteoporosis (T-score at or below -2.5). 10-year Fracture Risk: FRAX not reported because: Prior hip or vertebral fracture Previous Exams: Region Exam Age BMD T-score BMD Change BMD Change Date g/cm2 vs Baseline vs Previous AP Spine (L1-L4) 03/16/2025 80 1.207 1.5 0.071 (6.2%)* 0.071 (6.2%)* 04/21/2015 70 1.136 0.8 Total Hip(Right) 03/16/2025 80 0.861 -0.7 -0.008 (-0.9%) -0.008 (-0.9%) 04/21/2015 70 0.869 -0.6 *Denotes significance at 95% confidence level, LSC for AP Spine = 0.022 g/cm2, LSC for Total Hip = 0.027 g/cm2 Clinical Information Provided by Patient: Have had a previous hip or vertebral fracture Has had a low trauma fracture Has used the following medications: Vitamin D, Calcium Has the following medical conditions: Cancer Patient maximum height was 65.0 Menopause Age: 50 No regular weight bearing exercise Drinks caffeinated beverages Onset of menses at age 15 Number of children 3 Impression: The patient has low bone mass, based on the Right Femoral Neck T-score. The patient has risk factors, including: previous fracture. No significant bone loss was observed. Discussion: INCREASED RISK OF FRACTURE DUE TO HISTORY OF FRACTURE. The patient's previous fracture puts the patient at high risk of a future fracture. In untreated patients, the risk of osteoporotic fracture increases approximately two-fold for each 1.0 SD decrease in T-score. Low bone density is not the only risk factor for fracture; also consider factors such as patient's age, frailty or poor health, risk of falling, risk of injury, previous osteoporotic fracture, family history of osteoporosis, cigarette smoking, low body weight, etc. Not everyone with a low trauma fracture has osteoporosis; osteomalacia and other metabolic bone disorders should also be considered. Patients who have osteoporosis should be evaluated for specific diseases and conditions (secondary causes) that may cause or contribute to bone loss and fracture risk. National Osteoporosis Foundation (NOF) recommends pharmacologic intervention for patients with a prior hip or vertebral fracture regardless of BMD T-score. The patient should follow a healthful lifestyle (good nutrition with adequate calcium and vitamin D, and appropriate weight-bearing exercise). Follow-Up: Consider a repeat BMD and Vertebral Fracture Assessment (VFA) exam in 2 years or sooner if medically necessary, to reassess this patient's status. Reported by: COLETTE on 03/16/2025 1:34:00 PM. Reviewed, dictated and finalized at location A.
--- OUTSIDE RECORDS SUMMARY | 2025-03-16 13:59 | XMS_ITS | Encounter Summary ---
Author Organization [facility] Address [address] [place] [address] Care Team Providers Care Operations And Maintenance Specialist Name Role Phone Master Valentin MD Primary Care Provider +1- [phone] Encounter Details Date Type Department Care Team (Latest Contact Info) Description 07/31/2001 Outpatient Historical HIS IMG-LAB [facility] Master Valentin MD [address] [place] [address] FEMALE CLIMACTERIC STATE (Primary Dx) Social History Tobacco Use Types Packs/Day Years Used Date Smoking Tobacco: Never Assessed Comments Unknown Sex and Gender Information Value Date Recorded Sex Assigned at Not on file 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 [employer] Gender Identity Not on file Sexual Orientation Not on file documented as of this encounter Plan of Treatment Upcoming Encounters Date Type Department Care Team (Late st Contact Info) Description 04/07/2025 11:00 AM CDT Office Visit [facility] Oncology and Hematology - [place] [address] [facility] [address] [place] [address] Sinan Vicente MD [address] [facility] [address] [place] [address] documented as of this encounter Visit Diagnoses Diagnosis Symptomatic menopausal or female climacteric states- Primary documented in this encounter Care Teams Operations And Maintenance Specialist Relationship Specialty Start Date End Date Master Valentin MD [address] [place] [address] PCP - General 05/23/15 documented as of this encounter
--- OUTSIDE RECORDS SUMMARY | 2025-03-16 13:59 | XMS_ITS | Encounter Summary ---
Author Organization [facility] Address [address] [facility] Attn: Epic Prelude ADT LESLY HERNANDEZ [address] Care Team Providers Care Financial Associate Name Role Phone Master Valentin MD Primary Care Provider +1- [phone] Encounter Details Date Type Department Care Team (Late Contact Info) Description 11/09/1998 Outpatient Historical Social History Tobacco Use Types Packs/Day Years Used Date Smoking Tobacco: Never Assessed Comments Unknown Sex and Gender Information Value Date Recorded Sex Assigned at Not on file Legal Sex Female 4:22 AM TRANSVERSE ABDOMINAL MUSCLE NURSE Gender Identity Not on file Sexual Orientation Not on file documented as of this encounter Plan of Treatment Upcoming Encounters Date Type Department Care Team (Late st Contact Info) Description 04/07/2025 11:00 AM CDT Office Visit [facility] Oncology and Hematology - [place] [address] [facility] [address] [place] [address] Sinan Vicente MD [address] [facility] [address] [place] [address] documented as of this encounter Visit Diagnoses Not on filedocumented in this encounter Care Teams Financial Associate Relationship Specialty Start Date End Date Master Valentin MD [address] [place] [address] PCP - General 05/23/15 documented as of this encounter
--- OUTSIDE RECORDS SUMMARY | 2025-03-16 13:59 | XMS_ITS | Encounter Summary ---
Author Organization [facility] Address [address] [place] [address] Care Team Providers Care Donor Relations Officer Name Role Phone Master Valentin MD Primary Care Provider +1- [phone] Encounter Details Date Type Department Care Team (Latest Contact Info) Description 06/22/2008 Outpatient Historical [facility] Radiation Oncology [place] [address] [place] [phone] Marcie Berman MD NO ADDRESS ON FILE Master Valentin MD [address] [place] [address] Malignant Neoplasm of Upper-Outer Quadrant of Female Breast (CMS/HCC) Social History Tobacco Use Types Packs/Day Years Used Date Smoking Tobacco: Never Assessed Comments Unknown Sex and Gender Information Value Date Recorded Sex Assigned at Not on file Legal Sex Female 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 PRODUCT 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 Gender Identity Not on file Sexual Orientation Not on file documented as of this encounter Plan of Treatment Upcoming Encounters Date Type Department Care Team (Late st Contact Info) Description 04/07/2025 11:00 AM CDT Office Visit [facility] Oncology and Hematology - [place] [address] [facility] [address] [place] [address] Sinan Vicente MD [address] [facility] [address] [place] [address] documented as of this encounter Visit Diagnoses Diagnosis Malignant neoplasm of upper-outer quadrant of female breast (CMS/HCC) Malignant neoplasm of upper-outer quadrant of female breast documented in this encounter Care Teams Donor Relations Officer Relationship Specialty Start Date End Date Master Valentin MD [address] [place] [address] PCP - General 05/23/15 documented as of this encounter
--- OUTSIDE RECORDS SUMMARY | 2025-03-16 13:59 | XMS_ITS | Clinical Summary ---
Author Organization [employer] [address] [place] [address] [place] [address] Care Team Providers Care Brand Ambassadors Promotional Sales Name Role Phone Master Valentin MD Primary Care Provider +1- [phone] Allergies Active Allergy Reactions Criticality Noted Date [...] needed for Diarrhea/Loose Stools. 30 Capsule 3 Active amoxicillin (AMOXIL) 500 mg capsule [...] injections three times weekly 50 Each 3 02/20/2025 1:32 PM CDT 4 Active amoxicillin (AMOXIL) 500 mg capsule Take 4 capsules before dental work as directed (30-60 min before) 20 Capsule 2 02/20/2025 1:32 PM CDT 5 Active exemestane (AROMASIN) 25 [...] EYES ONCE AT BEDTIME 7.5 mL 3 02/20/2025 1:32 PM CDT 5 Active amoxicillin (AMOXIL) 500 mg capsule Take 4 capsules by mouth before dental work. 20 Capsule 2 03/03/2025 3:50 PM CDT 5 Active Active Problems Patient Care Coordination No te Formatting of this note migh t be different from the original. 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 Oncology and Hematology [facility] [address] [place] [address] Sinan Vicente MD XR Dexa Bone Density (Spoke with the patient to provide XR Dexa appt info) 03/01/2025 External Device Data STL ABSTRACTION Provider, Abstract 02/26/2025 11:15 AM CDT - 02/26/2025 11:59 PM CDT Hospital Encounter [facility] Imaging Services [address] [address] Master Valentin MD Discharge Disposition: Home or Self Care 02/22/2025 11:15 AM CDT Office Visit 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 Oncology and Hematology [facility] [address] [place] [address] Sinan Vicente MD 02/14/2025 Orders Only [facility] Oncology and Hematology [facility] [address] [place] [address] Sinan Vicente MD Malignant neoplasm of nipple [...] on file Legal Sex Female 4:22 AM COSTUMER ASSISTANT Gender Identity Not on file Sexual Orientation Not on file Occupation Industry Job Start Date Job End Date Not on file Not on file Not on file Not on file Last Filed Vital Signs Vital Sign Reading Time Taken Comments Blood Pressure 128/72 02/22/2025 11:16 AM CDT Pulse 92 02/22/2025 11:16 AM CDT Temperature 36.2 C (97.2 F) 02/22/2025 11:16 AM CDT Respiratory Rate 15 12/13/2024 10:37 AM CDT Oxygen Saturation 98% 02/22/2025 11:16 AM CDT Inhaled Oxygen Concentration - - Weight 83 kg (183 lb) 02/22/2025 11:16 AM CDT Height 162.6 cm (5' 4) 02/22/2025 11:16 AM CDT Body Mass Index 31.41 02/22/2025 11:16 AM CDT Plan of Treatment Upcoming Encounters Date Type Department Care Team (Late st Contact Info) Description 04/07/2025 11:00 AM CDT Office Visit [facility] Oncology and Hematology - [place] [address] [facility] [address] [place] [address] Sinan Vicente MD [address] [facility] [address] [place] [address] Health Maintenance Due Date Last Done Comments DTAP/TDAP/TD VACCINES (1 - Tdap) 02/22/1964 PNEUMOCOCCAL VACCINE 50+ YEA RS (1 of 2 - PCV) 02/22/1964 ZOSTER VACCINE (1 of 2) 02/22/1964 RSV VACCINE (60+ or ) (1 - 1-dose 75+ series) 02/22/2020 [place] ([place]) Preventative Visit/Annual Wellness Visit 07/14/2024 INFLUENZA VACCINE (#1) 2025 COVID-19 Vaccine (2024-2 6 season) 2025 04/23/2022, 10/29/2021, 07/02/2021, Additional history exists OSTEOPOROSIS SCREENING 07/22/2027 , 03/02/2014, 02/24/2012, Additional history exists Procedures Procedure Name Priority Date/Time Associated Diagnosis Comments MAMMO 3D OLGA SCREEN UNI LT W OR WO CAD Routine 02/26/2025 11:34 AM CDT Visit for screening mammogram CHG CA 15 3 Routine 02/14/2025 12:43 PM CDT COMPREHENSIVE METABOLIC PANEL Routine 02/14/2025 11:47 AM CDT CBC WITH AUTODIFFERENTIAL Routine 02/14/2025 10:47 AM CDT CBC WITH AUTODIFFERENTIAL Routine 02/14/2025 10:42 AM CDT CANCER ANTIGEN 15-3 Routine 01/31/2025 1 :54 PM CDT 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 OVERALL FINAL ASSESSMENT left breast: BI-RADS CATEGORY 2: Benign findings. ROUTINE SCREENING MAMMOGRAPHY IS RECOMMENDED IN 12 MONTHS. A normal letter will be sent to patient. Narrative 02/26/2025 2:45 PM CDT EXAM: MAMMO 3D OLGA SCREEN UNI LT W OR WO CAD STUDY DATE: 02/26/2025 11:34 AM CLINICAL INDICATION: 80 years old female presents for routine left breast screening mammography. Patient reports a history of right-sided breast cancer status post right mastectomy COMPARISON: Prior mammograms, the most recent dated 06/23/2023 PROCEDURE: CC and MLO digital mammographic views of the left breast are obtained. Computer Aided Detection (CAD) was utilized. Tomosynthesis was done with all views. FINDINGS: BREAST COMPOSITION: The breasts are heterogeneously dense, which may obscure small masses Left breast: There are stable benign calcifications in the left breast. There is a stable biopsy clip in the left retroareolar breast. There are no spiculated masses, suspicious microcalcifications or areas of architectural distortion in the left breast. Master Valentin MD MAMMO ORDERABLES Final Res ult * CHG CA 15 3 (02/14/2025 12:43 PM CDT) Sinan Vicente MD CHG - LABORATORY Final Result * COMPREHENSIVE METABOLIC PANEL (02/14/2025 11:47 AM CDT) Blood us Sinan Vicente MD CHEMISTRY ORDERABLES Final Resu lt * CBC WITH AUTODIFFERENTIAL (02/14/2025 10:47 AM CDT) Only the most recent of2 resultswithin the time period is included. Blood Sinan Vicente MD HEMATOLOGY ORDERABLES Final Res ult * CANCER ANTIGEN 15-3 (01/31/2025 1:54 PM CDT) CA 15-3 16 <32 U/mL [employer] [facility] Comment: This test was performed using the Siemens ([employer]) chemiluminescent method. Values obtained from different assay methods cannot be used interchangeably. CA 15-3 levels, regardless of value, should not be interpreted as absolute evidence of the presence or absence of disease. Test [facility]formed at: [facility] [place] [address] [place] [address] Topher Lang MD Blood 01/31/2025 1:54 PM CDT 01/31/2025 1:54 PM CDT Sinan Vicente MD CHEMISTRY ORDERABLES Final Resu lt [facility] [phone] [facility] [place] [address] [place] [address] * XR DEXA BONE DENSITY AXIAL 1 OR MORE SITES (07/22/2022 9:18 AM COSTUMER ASSISTANT) Anatomical Region Laterality Modality Digital Radiogra phy 07/22/2022 9:18 AM COSTUMER ASSISTANT Impressions 07/22/2022 9:30 AM COSTUMER ASSISTANT IMPRESSION: This is a summary page. Please refer to the complete detailed report found in the Imaging Section of the [facility] EMR. Osteopenia. Lumbar Spine: T-Score: 0.1 Right [...] Sweeney MD DICTATION LOCATION: 07/22/2022 9:30 AM COSTUMER ASSISTANT EXAMINATION: BONE DENSITY STUDY (DXA) DATE: 07/22/2022 9:18 AM HISTORY: 77 years Female. Postmenopausal. Left hip replacement. PROCEDURE: Planar images of the lumbar spine, hip(s) and forearm(s) using a LUNAR DEXA scanner for bone mineral density determination [...] lumbar spine, hip(s) and forearm(s) using a LUNAR DEXA scanner for bone mineral density determination [...] found in the Imaging Section of the [facility] EMR. Osteopenia. Lumbar Spine: T-Score: 0.1 Right [...] Most Recently Relevant to Health Maintenance Insurance [facility] AETNA Medicare Part D RX [employer] (INTERNAL) [facility] [employer] AETNA PPO [facility] Care Teams Brand Ambassadors Promotional Sales Relationship Specialty Start Date End Date Master Valentin MD [address] [place] [address] [facility] - General 05/23/15
--- OUTSIDE RECORDS SUMMARY | 2025-03-16 13:59 | XMS_ITS | Encounter Summary ---
Author Organization [facility] Address [address] [place] [address] Care Team Providers Care Auto Mechanic Apprentice Name Role Phone Master Valentin MD Primary Care Provider +1- [phone] Encounter Details Date Type Department Care Team (Latest Contact Info) Description 08/12/2008 Outpatient Historical [facility] Radiation Oncology [place] [address] [place] [phone] Marcie Berman MD NO ADDRESS ON FILE Master Valentin MD [address] [place] [address] Malignant Neoplasm of Upper-Outer Quadrant of Female Breast (CMS/HCC) Social History Tobacco Use Types Packs/Day Years Used Date Smoking Tobacco: Never Assessed Comments Unknown Sex and Gender Information Value Date Recorded Sex Assigned at Not on file Legal Sex Female 4:22 AM CRITICAL CARE NURSE PRACTITIONER Gender Identity Not on file Sexual Orientation Not on file documented as of this encounter Plan of Treatment Upcoming Encounters Date Type Department Care Team (Late st Contact Info) Description 04/07/2025 11:00 AM CDT Office Visit [facility] Oncology and Hematology - [place] [address] [facility] [address] [place] [address] Sinan Vicente MD [address] [facility] [address] [place] [address] documented as of this encounter Visit Diagnoses Diagnosis Malignant neoplasm of upper-outer quadrant of female breast (CMS/HCC) Malignant neoplasm of upper-outer quadrant of female breast documented in this encounter Care Teams Auto Mechanic Apprentice Relationship Specialty Start Date End Date Master Valentin MD [address] [place] [address] PCP - General 05/23/15 documented as of this encounter
--- OUTSIDE RECORDS SUMMARY | 2025-03-16 13:59 | XMS_ITS | Encounter Summary ---
Author Organization [facility] Address [address] [place] [address] Care Team Providers Care Vehicle Service Agent Name Role Phone Master Valentin MD Primary Care Provider +1- [phone] Encounter Details Date Type Department Care Team (Latest Contact Info) Description 06/23/2008 Outpatient Historical [facility] Radiation Oncology [place] [address] [place] [address] Marcie Berman MD NO ADDRESS ON FILE Malignant Neoplasm of Upper-Outer Quadrant of Female Breast (CMS/HCC) Social History Tobacco Use Types Packs/Day Years Used Date Smoking Tobacco: Never Assessed Comments Unknown Sex and Gender Information Value Date Recorded Sex Assigned at Not on file Legal Sex Female 4:22 AM PROJECT MANAGEMENT ANALYST Gender Identity Not on file Sexual Orientation Not on file documented as of this encounter Plan of Treatment Upcoming Encounters Date Type Department Care Team (Late st Contact Info) Description 04/07/2025 11:00 AM CDT Office Visit [facility] Oncology and Hematology - [place] [address] [facility] [address] [place] [address] Sinan Vicente MD [address] [facility] [address] [place] [address] documented as of this encounter Visit Diagnoses Diagnosis Malignant neoplasm of upper-outer quadrant of female breast (CMS/HCC) Malignant neoplasm of upper-outer quadrant of female breast documented in this encounter Care Teams Vehicle Service Agent Relationship Specialty Start Date End Date Master Valentin MD [address] [place] [address] PCP - General 05/23/15 documented as of this encounter
--- OUTSIDE RECORDS SUMMARY | 2025-03-16 13:59 | XMS_ITS ---
Author Organization [employer] [address] [place] [address] [place] [address] Care Team Providers Care Bulk Pallet Builder Name Role Phone Master Valentin MD Primary Care Provider +1- [phone] Active Problems Patient Care Coordination No te Formatting of this note migh t be different from the original. 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
--- OUTSIDE RECORDS SUMMARY | 2025-03-16 13:59 | XMS_ITS | Encounter Summary ---
Author Organization [facility] Address [address] [place] [address] Care Team Providers Care Polishing Pad Mounter Name Role Phone Master Valentin MD Primary Care Provider +- [phone] Encounter Details Date Type Department Care Team (Latest Contact Info) Description 07/31/2001 Outpatient Historical HIS IMG-LAB [facility] Master Valentin MD [address] [place] [address] SCREENING MAMM-MAILG NEOPL-OTHER (Primary Dx) Social History Tobacco Use Types Packs/Day Years Used Date Smoking Tobacco: Never Assessed Comments Unknown Sex and Gender Information Value Date Recorded Sex Assigned at Not on file Legal Sex Female 4:22 AM WOOL CARDER Gender Identity Not on file Sexual Orientation Not on file documented as of this encounter Plan of Treatment Upcoming Encounters Date Type Department Care Team (Late st Contact Info) Description 04/07/2025 11:00 AM CDT Office Visit [facility] Oncology and Hematology - [place] [address] [facility] [address] [place] [address] Sinan Vicente MD [address] [facility] [address] [place] [address] documented as of this encounter Visit Diagnoses Diagnosis Other screening mammogram- Primary documented in this encounter Care Teams Polishing Pad Mounter Relationship Specialty Start Date End Date Master Valentin MD [address] [place] [address] PCP - General 05/23/15 documented as of this encounter
--- OUTSIDE RECORDS SUMMARY | 2025-03-16 13:59 | XMS_ITS | Encounter Summary ---
Author Organization [facility] Address [address] [place] [address] Care Team Providers Care Wastewater Plant Civil Engineer Name Role Phone Master Valentin MD Primary Care Provider +1- [phone] Encounter Details Date Type Department Care Team (Latest Contact Info) Description 03/11/2000 Outpatient Historical HIS X/RAY-LAB [facility] Master Valentin MD [address] [place] [address] Other screening mammogram (Primary Dx) Social History Tobacco Use Types Packs/Day Years Used Date Smoking Tobacco: Never Assessed Comments Unknown Sex and Gender Information Value Date Recorded Sex Assigned at Not on file Legal Sex Female 4:22 AM SHOE CLERK Gender Identity Not on file Sexual Orientation Not on file documented as of this encounter Plan of Treatment Upcoming Encounters Date Type Department Care Team (Late st Contact Info) Description 04/07/2025 11:00 AM CDT Office Visit [facility] Oncology and Hematology - [place] [address] [facility] [address] [place] [address] Sinan Vicente MD [address] [facility] [address] [place] [address] documented as of this encounter Visit Diagnoses Diagnosis Other screening mammogram- Primary documented in this encounter Care Teams Wastewater Plant Civil Engineer Relationship Specialty Start Date End Date Master Valentin MD [address] [place] [address] PCP - General 05/23/15 documented as of this encounter
--- OUTSIDE RECORDS SUMMARY | 2025-03-16 13:59 | XMS_ITS | Encounter Summary ---
Author Organization [facility] Address [address] [place] [address] Care Team Providers Care Supervisor Park Workers Name Role Phone Master Valentin MD Primary Care Provider +1- [phone] Encounter Details Date Type Department Care Team (Latest Contact Info) Description 11/23/2008 Outpatient Historical [facility] Radiation Oncology [place] [address] [address] [place] [phone] Marcie Berman MD NO ADDRESS ON FILE Master Valentin MD [address] [place] [address] Malignant Neoplasm of Upper-Outer Quadrant of Female Breast (CMS/HCC) Social History Tobacco Use Types Packs/Day Years Used Date Smoking Tobacco: Never Assessed Comments Unknown Sex and Gender Information Value Date Recorded Sex Assigned at Not on file Legal Sex Female 4:22 AM PERSONNEL QUALITY ASSURANCE AUDITOR Gender Identity Not on file Sexual Orientation Not on file documented as of this encounter Plan of Treatment Upcoming Encounters Date Type Department Care Team (Late st Contact Info) Description 04/07/2025 11:00 AM CDT Office Visit [facility] Oncology and Hematology - [place] [address] [facility] [address] [place] [address] Sinan Vicente MD [address] [facility] [address] [place] [address] documented as of this encounter Visit Diagnoses Diagnosis Malignant neoplasm of upper-outer quadrant of female breast (CMS/HCC) Malignant neoplasm of upper-outer quadrant of female breast documented in this encounter Care Teams Supervisor Park Workers Relationship Specialty Start Date End Date Master Valentin MD [address] [place] [address] PCP - General 05/23/15 documented as of this encounter
--- OUTSIDE RECORDS SUMMARY | 2025-03-16 14:00 | XMS_ITS | Clinical Summary ---
Author Organization [facility] Address [address] [place] [address] Care Team Providers Care Block Press Operator Name Role Phone Unavailable Primary Care Provider Unavailabl e Social History Tobacco Use Types Packs/Day Years Used Date Smoking Tobacco: Never Assessed Comments Unknown Sex and Gender Information Value Date Recorded Sex Assigned at Not on file Legal Sex Female 4:22 PM CDT Gender Identity Not on file Sexual Orientation Not on file Plan of Treatment Health Maintenance Due Date Last Done Comments DTaP, Tdap and Td Vaccines ( 1 - Tdap) 02/22/1964 Pneumococcal Vaccine: 50+ Ye ars (1 of 1 - PCV) 1995 Zoster Vaccines (1 of 2) 1995 Dexa Scan (General) 2010 RSV Immunization or 60+ Years (1 - 1-dose 75+ series) 02/22/2020 COVID-19 Vaccine (2023-2 5 season) 2025 Meningococcal B Vaccine Aged Out No l onger eligible based on patient's age to complete this topic Meningococcal Vaccine Aged Out No daniel cheryl eligible based on patient's age to complete this topic RSV Immunizations Under 20 Months Aged Out No longer eligible based on patient's age to complete this topic
--- OUTSIDE RECORDS SUMMARY | 2025-03-16 14:00 | XMS_ITS | Clinical Summary ---
Author Organization [facility] Address [address] [place] [address] [place] [address] Care Team Providers Care Patrol Supervisor Name Role Phone Master Valentin MD Primary Care Provider +1- [phone] Yaya PINON MD, Calos Unavailable [phone] Source Comments [facility],non-owned Affiliates and Associated Physician Practices is amultiple site organization consisting of ambulatory clinics and hospital sitesin [place], [place], [place] and [place]. This disclosure is being madepursuant to the Care Everywhere program and may not contain all information available regarding this patient. Last updated 18.[facility] Allergies Active Allergy Reactions Criticality [...] on file Legal Sex Female 5:28 AM VEGETABLES COOK Gender Identity Not on file Sexual Orientation [...] yrs (1 - 1-dose 75+ series) 02/22/2020 DEPRESSION SCREENING 07/14/2024 COVID-19 VACCINE (1 - 2023-2 5 season) 2025 INFLUENZA VACCINE (#1) 2025 HEPATITIS B VACCINE [...] topic Insurance MANAGED MEDICARE ADV Care Teams Patrol Supervisor Relationship Specialty Start Date End Date Master Valentin MD [address] [facility], [address] PCP - General Family Medicine 09/21/15 [place] [address] [address] [place] [address] Orthopedic Surgery 11/06/15
--- OUTSIDE RECORDS SUMMARY | 2025-03-16 14:00 | XMS_ITS | Encounter Summary ---
Author Organization [facility] Address [address] [place] [address] Care Team Providers Care It Business Process Architect Name Role Phone Master Valentin MD Primary Care Provider +1- [phone] Encounter Details Date Type Department Care Team (Latest Contact Info) Description 03/08/2009 Outpatient Historical [facility] Dflt Department Marcie Berman MD NO ADDRESS [...] on file Legal Sex Female 4:22 AM TOOL MAKER Gender Identity Not on file Sexual Orientation Not on file documented as of this encounter Plan of Treatment Upcoming Encounters Date Type Department Care Team (Late st Contact Info) Description 04/07/2025 11:00 AM CDT Office Visit [facility] Oncology and Hematology - Rui [address] [facility] [address] [place] [address] Sinan Vicente MD [address] [facility] [address] [place] [address] documented as of this encounter Visit Diagnoses Diagnosis Malignant neoplasm of upper-outer quadrant of female breast (CMS/HCC) Malignant neoplasm of upper-outer quadrant of female breast documented in this encounter Care Teams It Business Process Architect Relationship Specialty Start Date End Date Master Valentin MD [address] [place] [address] PCP - General 05/23/15 documented as of this encounter
--- OUTSIDE RECORDS SUMMARY | 2025-03-16 14:00 | XMS_ITS | Encounter Summary ---
Author Organization [facility] Address [address] [place] [address] Care Team Providers Care Vice President Residential Solar Sales Name Role Phone Master Valentin MD Primary Care Provider +1- [phone] Encounter Details Date Type Department Care Team (Latest Contact Info) Description 09/20/2008 Outpatient Historical [facility] Radiation Oncology [place] [address] [place] [phone] Marcie Berman MD NO ADDRESS ON FILE Master Valentin MD [address] [place] [address] Malignant Neoplasm of Upper-Outer Quadrant of Female Breast (CMS/HCC) Social History Tobacco Use Types Packs/Day Years Used Date Smoking Tobacco: Never Assessed Comments Unknown Sex and Gender Information Value Date Recorded Sex Assigned at Not on file Legal Sex Female 4:22 AM FELLER OPERATOR Gender Identity Not on file Sexual Orientation Not on file documented as of this encounter Plan of Treatment Upcoming Encounters Date Type Department Care Team (Late st Contact Info) Description 04/07/2025 11:00 AM CDT Office Visit [facility] Oncology and Hematology - Rui [address] [facility] [address] [place] [address] Sinan Vicente MD [address] [facility] [address] [place] [address] documented as of this encounter Visit Diagnoses Diagnosis Malignant neoplasm of upper-outer quadrant of female breast (CMS/HCC) Malignant neoplasm of upper-outer quadrant of female breast documented in this encounter Care Teams Vice President Residential Solar Sales Relationship Specialty Start Date End Date Master Valentin MD [address] [place] [address] PCP - General 05/23/15 documented as of this encounter
--- OUTSIDE RECORDS SUMMARY | 2025-03-16 14:00 | XMS_ITS | Encounter Summary ---
Author Organization [facility] Address 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 Female 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 Gender Identity Not on file Sexual Orientation Not on file documented as of this encounter Plan of Treatment Upcoming Encounters Date Type Department Care Team (Late st Contact Info) Description 04/07/2025 11:00 AM CDT Office Visit [facility] Oncology and Hematology - Rui [address] [facility] [address] [place] [address] Sinan Vicente MD [address] [facility] [address] [place] [address] documented as of this encounter Procedures Procedure Name Priority Date/Time Associated Diagnosis Comments CANCER ANTIGEN 27-29 Routine 11/29/2008 9:49 PM CDT COMPREHENSIVE METABOLIC PANEL Routine 11/29/2008 9:49 PM CDT documented in this encounter Results * CANCER ANTIGEN 27-29 (11/29/2008 9:49 PM CDT) Pathologist [facility] CA 27-29 14 <38 U/mL [facility] Comment: THIS TEST WAS PERFORMED USING THE SIEMENS (DAVID) CHEMILUMINESCENT METHOD. VALUES OBTAINED FROM DIFFERENT ASSAY METHODS CANNOT BE USED INTERCHANGEABLY. CA27.29 LEVELS, REGARDLESS OF VALUE, SHOULD NOT BE INTERPRETED ABSOLUTE EVIDENCE OF THE PRESENCE OR ABSENCE OF DISEASE. Lab test performed by: [employer] [facility] [id number] [address] [place] [place] [address] JANEEN CRAWFORD MDThitamera test was performed using the [employer]/David CA 27.29 Assay. 11/29/2008 9:49 PM CDT 11/29/2008 9:57 PM CDT us Nola Morgan MD CHEMISTRY ORDERABLES COM Carolyn l Result INTERFACE SYSTEM Refer to clinic/hospital department [facility] CLIA# [id number] [address] [facility] [place] [address] * (ABNORMAL) COMPREHENSIVE METABOLIC PANEL (11/29/2008 9:49 PM CDT) [facility] CREATININE 0.77 0.51 - 0.95 mg/dL [facility] ALT 28 0 - 31 U/L [facility] SODIUM 139 135 - 145 mmol/L [facility] ALKALINE PHOSPHATASE 86 35 - 104 U/L [facility] CO2 25 22 - 30 mmol/L [facility] BILIRUBIN TOTAL 0.3 0.2 - 1.0 mg/dL [facility] POTASSIUM 4.1 3.5 - 4.9 mmol/L [facility] TOTAL PROTEIN 7.2 6.3 - 8.6 g/dL [facility] GLUCOSE 100(H) 65 - 99 mg/dL [facility] AST 26 12 - 32 U/L [facility] BUN 13 6 - 20 mg/dL [facility] CALCIUM 9.8 8.6 - 10.2 mg/dL [facility] ALBUMIN 4.5 3.4 - 4.8 g/dL [facility] CHLORIDE 102 96 - 108 mmol/L [facility] GFR, >60 >=60 mL/min/1. 7 sq meter [facility] GFR >60 >=60 mL/min/1. 7 sq meter [facility] Comment: Modification of Diet in Renal Disease (MDRD) study formula. 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
--- OUTSIDE RECORDS SUMMARY | 2025-03-16 14:00 | XMS_ITS | Encounter Summary ---
Author Organization [facility] Address 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) Social History Tobacco Use Types Packs/Day Years Used Date Smoking Tobacco: Never Assessed Comments Unknown Sex and Gender Information Value Date Recorded Sex Assigned at Not on file Legal Sex Female 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 PRODUCTION ASSISTANT Gender Identity Not on file Sexual Orientation Not on file documented as of this encounter Plan of Treatment Upcoming Encounters Date Type Department Care Team (Late st Contact Info) Description 04/07/2025 11:00 AM CDT Office Visit [facility] Oncology and Hematology - Rui [address] [facility] 200 [place] [address] Sinan Vicente MD [address] [facility] [address] [place] [address] documented as of this encounter Visit Diagnoses Diagnosis Malignant neoplasm of upper-outer 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
== END 2025-03-16 12:51 | disposition home or self-care (01) ==
LOC: ANHFOHIMG 12:54
PROVIDERS: Visit Provider Internal Medicine Hematology & Oncology
DX: M85.89 Other specified disorders of bone density and structure, multiple sites (principal); M85.851 Other specified disorders of bone density and structure, right thigh
CPT/HCPCS: 77080

== ENCOUNTER 2025-04-01 11:46 | Outpatient (CLI) | payer MEDICARE, SELFPAY ==
--- OUTSIDE RECORDS SUMMARY | 2025-04-01 11:49 | XMS_ITS | Encounter Summary ---
Author Organization [facility] Address 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) Social History Tobacco Use Types Packs/Day Years Used Date Smoking Tobacco: Never Assessed Comments Unknown Sex and Gender Information Value Date Recorded Sex Assigned at Not on file Legal Sex Female 4:22 AM BIT SHAVER Gender Identity Not on file Sexual Orientation Not on file documented as of this encounter Plan of Treatment Upcoming Encounters Date Type Department Care Team (Late st Contact Info) Description 04/07/2025 11:00 AM CDT Office Visit [facility] Oncology and Hematology - Rui [address] [facility] 200 [place] [address] Sinan Vicente MD [address] [facility] [address] [place] [address] documented as of this encounter Visit Diagnoses Diagnosis Malignant neoplasm of upper-outer quadrant of female breast (CMS/HCC) Malignant neoplasm of upper-outer quadrant of female breast documented in this encounter Care Teams Mgmt Consultant Relationship Specialty Start Date End Date Master Valentin MD [address] [place] [address] PCP - General 05/23/15 documented as of this encounter
--- OUTSIDE RECORDS SUMMARY | 2025-04-01 11:49 | XMS_ITS | Encounter Summary ---
Author Organization [facility] Address 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) Social History Tobacco Use Types Packs/Day Years Used Date Smoking Tobacco: Never Assessed Comments Unknown Sex and Gender Information Value Date Recorded Sex Assigned at Not on file Legal Sex Female 4:22 AM CLIENT CARE COORDINATOR Gender Identity Not on file Sexual Orientation Not on file documented as of this encounter Plan of Treatment Upcoming Encounters Date Type Department Care Team (Late st Contact Info) Description 04/07/2025 11:00 AM CDT Office Visit [facility] Oncology and Hematology - Rui [address] [facility] 200 [place] [address] Sinan Vicente MD [address] [facility] [address] [place] [address] documented as of this encounter Visit Diagnoses Diagnosis Malignant neoplasm of upper-outer quadrant of female breast (CMS/HCC) Malignant neoplasm of upper-outer quadrant of female breast documented in this encounter Care Teams Sample Maker Original Relationship Specialty Start Date End Date Master Valentin MD [address] [place] [address] PCP - General 05/23/15 documented as of this encounter
--- OUTSIDE RECORDS SUMMARY | 2025-04-01 11:49 | XMS_ITS | Clinical Summary ---
Author Organization [facility] Address [address] [place] [address] Care Team Providers Care Auxiliary Plant Operator Name Role Phone Unavailable Primary Care [...]
--- OUTSIDE RECORDS SUMMARY | 2025-04-01 11:49 | XMS_ITS | Encounter Summary ---
Author Organization [facility] Address 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 Oncology and Hematology - Rui [address] [facility] 200 [place] [address] Sinan Vicente MD [address] [facility] [address] [place] [address] documented as of this encounter Procedures Procedure Name Priority Date/Time Associated Diagnosis Comments CANCER ANTIGEN 27-29 Routine 11/29/2008 9:49 PM CDT COMPREHENSIVE METABOLIC PANEL Routine 11/29/2008 9:49 PM CDT documented in this encounter Results * CANCER ANTIGEN 27-29 (11/29/2008 9:49 PM CDT) Pathologist [facility] CA 27-29 14 <38 U/mL [facility] Comment: THIS TEST WAS PERFORMED USING THE SIEMENS (DAVID) CHEMILUMINESCENT METHOD. VALUES OBTAINED FROM DIFFERENT ASSAY METHODS CANNOT BE USED INTERCHANGEABLY. CA27.29 LEVELS, REGARDLESS OF VALUE, SHOULD NOT BE INTERPRETED ABSOLUTE EVIDENCE OF THE PRESENCE OR ABSENCE OF DISEASE. Lab test performed by: [employer] [facility] [id number] [address] [place] [id number] JANEEN CRAWFORD MDThitamera test was performed using the [employer]/David CA 27.29 Assay. 11/29/2008 9:49 PM CDT 11/29/2008 9:57 PM CDT us Nola Morgan MD CHEMISTRY ORDERABLES COM Carolyn l Result INTERFACE SYSTEM Refer to clinic/hospital department [facility] CLIA# [id number] [address] [facility] [place] [address] * (ABNORMAL) COMPREHENSIVE METABOLIC PANEL (11/29/2008 9:49 PM CDT) [facility] CREATININE 0.77 0.51 - 0.95 mg/dL [facility] ALT 28 0 - 31 U/L [facility] SODIUM 139 135 - 145 mmol/L [facility] ALKALINE PHOSPHATASE 86 35 - 104 U/L [facility] CO2 25 22 - 30 mmol/L [facility] BILIRUBIN TOTAL 0.3 0.2 - 1.0 mg/dL [facility] POTASSIUM 4.1 3.5 - 4.9 mmol/L [facility] TOTAL PROTEIN 7.2 6.3 - 8.6 g/dL [facility] GLUCOSE 100(H) 65 - 99 mg/dL [facility] AST 26 12 - 32 U/L [facility] BUN 13 6 - 20 mg/dL [facility] CALCIUM 9.8 8.6 - 10.2 mg/dL [facility] ALBUMIN 4.5 3.4 - 4.8 g/dL [facility] CHLORIDE 102 96 - 108 mmol/L [facility] GFR, >60 >=60 mL/min/1. 7 sq meter [facility] GFR >60 >=60 mL/min/1. 7 sq meter [facility] Comment: Modification of Diet in Renal Disease (MDRD) study formula. 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
--- OUTSIDE RECORDS SUMMARY | 2025-04-01 11:49 | XMS_ITS | Encounter Summary ---
Author Organization [facility] Address 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 Gender Identity Not on file Sexual Orientation Not on file documented as of this encounter Plan of Treatment Upcoming Encounters Date Type Department Care Team (Late st Contact Info) Description 04/07/2025 11:00 AM CDT Office Visit [facility] ([facility] Oncology and Hematology - [place]ui [address] [facility] [address] [place] [address] Sinan Vicente MD [address] [facility] [address] [place] [address] documented as of this encounter Visit Diagnoses Diagnosis Other screening mammogram- Primary documented in this encounter Care Teams Oil And Gas Recruiter Relationship Specialty Start Date End Date Master Valentin MD [address] [place] [address] PCP - General 05/23/15 documented as of this encounter
--- OUTSIDE RECORDS SUMMARY | 2025-04-01 11:49 | XMS_ITS | Encounter Summary ---
Author Organization [facility] Address 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) Social History Tobacco Use Types Packs/Day Years Used Date Smoking Tobacco: Never Assessed Comments Unknown Sex and Gender Information Value Date Recorded Sex Assigned at Not on file Legal Sex Female 4:22 AM COOK FRY Gender Identity Not on file Sexual Orientation Not on file documented as of this encounter Plan of Treatment Upcoming Encounters Date Type Department Care Team (Late st Contact Info) Description 04/07/2025 11:00 AM CDT Office Visit [facility] Oncology and Hematology - [place]ui [address] [facility] 200 [place] [address] Sinan Vicente MD [address] [facility] [address] [place] [address] documented as of this encounter Visit Diagnoses Diagnosis Malignant neoplasm of upper-outer quadrant of female breast (CMS/HCC) Malignant neoplasm of upper-outer quadrant of female breast documented in this encounter Care Teams Radio Broadcaster Relationship Specialty Start Date End Date Master Valentin MD [address] [place] [address] PCP - General 05/23/15 documented as of this encounter
--- OUTSIDE RECORDS SUMMARY | 2025-04-01 11:49 | XMS_ITS | Clinical Summary ---
Author Organization [facility] Address [address] [place] [address] [place] [address] Care Team Providers Care Chuck Wagon Driver Name Role Phone Master Valentin MD Primary Care Provider +1- [phone] Yaya PINON MD, [place] Unavailable [phone] Source Comments [facility],non-owned Affiliates and Associated Physician Practices is amultiple site organization consisting of ambulatory clinics and hospital sitesin [place], [place]. This disclosure is being madepursuant to the Care Everywhere program and may not contain all information available regarding this patient. Last updated 18.[facility] Allergies Active Allergy Reactions Criticality Noted Date [...] on file Legal Sex Female 5:28 AM HOTBED OPERATOR Gender Identity Not on file Sexual [...] topic Insurance MANAGED MEDICARE ADV Care Teams Chuck Wagon Driver Relationship Specialty Start Date End Date Master Valentin MD [address] [facility], [address] PCP - General Family Medicine 09/21/15 [place] [address] [place] [address] Orthopedic Surgery 11/06/15
--- OUTSIDE RECORDS SUMMARY | 2025-04-01 11:49 | XMS_ITS | Encounter Summary ---
Author Organization [facility] Address 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) Social History Tobacco Use Types Packs/Day Years Used Date Smoking Tobacco: Never Assessed Comments Unknown Sex and Gender Information Value Date Recorded Sex Assigned at Not on file Legal Sex Female 4:[address] Gender Identity Not on file Sexual Orientation Not on file documented as of this encounter Plan of Treatment Upcoming Encounters Date Type Department Care Team (Late st Contact Info) Description 04/07/2025 11:00 AM CDT Office Visit [facility] Oncology and Hematology - [place]ui [address] [facility] [address] [place] [address] Sinan Vicente MD [address] [facility] [address] [place] [address] documented as of this encounter Visit Diagnoses Diagnosis Malignant neoplasm of upper-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
--- OUTSIDE RECORDS SUMMARY | 2025-04-01 11:49 | XMS_ITS | Clinical Summary ---
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 Other lymphedema 03/01/2013 Malignant neoplasm of female breast 02/09/2009 Overview (03/01/2013): 2009;Locally advanced R breast cancer, ER+,invasive lobular Trial of neoadjuvent Femara Mastectomy/LN, [id number] III Continued Femara: post-op RT Chronic lymphedema Breast cancer Encounters Date Type Department Care Team Description 03/29/2025 External Device Data STL ABSTRACTION Provider, Abstract 03/21/2025 Orders Only [facility] Oncology and Hematology [facility] [address] [place] [phone] Sinan Vicente MD 03/07/2025 Telephone [facility] Oncology and Hematology [facility] [address] [place] [phone] Sinan Vicente MD XR Dexa Bone Density (Spoke with the patient to provide XR Dexa appt info) 03/01/2025 External Device Data STL ABSTRACTION Provider, Abstract 02/26/2025 11:15 AM CDT - 02/26/2025 11:59 PM CDT Hospital Encounter [facility] Imaging Services [address] [phone] Master Valentin MD Discharge Disposition: Home or Self Care 02/22/2025 11:15 AM CDT Office Visit [facility] Oncology and Hematology [facility] [address] [place] [phone] Sinan Vicente MD 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, right (CMS/HCC) (Primary Dx); Osteopenia of multiple sites 02/15/2025 External Device Data STL ABSTRACTION Provider, Abstract 02/15/2025 Orders Only [facility] Oncology and Hematology [place] [address] [place] [phone] Sinan Vicente MD 02/14/2025 Orders Only [facility] Oncology and Hematology [place] [address] [place] [address] Sinan Vicente MD Malignant neoplasm of nipple [...] on file Legal Sex Female 4:22 AM REGULATOR ASSEMBLER Gender Identity Not on file Sexual Orientation [...] 04/07/2025 11:00 AM CDT Office Visit [facility] Oncology and Hematology - [place] [address] [facility] [address] [place] [address] Sinan Vicente MD [address] [facility] [address] [place] [address] Health Maintenance Due Date Last Done Comments DTAP/TDAP/TD VACCINES (1 - Tdap) 02/22/1964 PNEUMOCOCCAL VACCINE 50+ YEA RS (1 of 2 - PCV) 02/22/1964 ZOSTER VACCINE (1 of 2) 02/22/1964 RSV VACCINE (60+ or ) (1 - 1-dose 75+ series) 02/22/2020 Medicare [place]age ([place]) Preventative Visit/Annual Wellness Visit 07/14/2024 INFLUENZA VACCINE (#1) 2025 COVID-19 Vaccine (7 - 2024-2 6 season) 2025 04/23/2022, 10/29/2021, 07/02/2021, Additional history exists OSTEOPOROSIS SCREENING 07/22/2027 , 03/02/2014, 02/24/2012, Additional history exists Procedures Procedure Name Priority Date/Time Associated Diagnosis Comments NM BONE DENSITY Routine 03/16/2025 9:20 AM CDT MAMMO 3D OLGA SCREEN UNI LT W [...] OR MORE SITES Routine 07/22/2022 9:18 AM REGULATOR ASSEMBLER Aromatase inhibitor use from Last 3 Months or Most Recently Relevant to Health Maintenance Results * NM BONE DENSITY (03/16/2025 9:20 AM CDT) Anatomical Region Laterality Modality Nuclear Medicine us Sinan Vicente MD NM ORDERABLES Final Result * MAMMO 3D OLGA SCREEN UNI LT [...] of architectural distortion in the left breast. us Master Valentin MD MAMMO ORDERABLES Final Res ult * CHG CA 15 3 (02/14/2025 12:43 PM CDT) us Sinan Vicente MD CHG - LABORATORY Final Result * COMPREHENSIVE METABOLIC PANEL (02/14/2025 11:47 AM CDT) Blood Sinan Vicente MD CHEMISTRY ORDERABLES Final Resu lt * CBC WITH AUTODIFFERENTIAL (02/14/2025 10:47 AM CDT) Only the most recent of2 resultswithin the time period is included. Blood Sinan Vicente MD HEMATOLOGY ORDERABLES Final Res ult * CANCER ANTIGEN 15-3 (01/31/2025 1:54 PM CDT) CA 15-3 16 <32 U/mL [facility] Comment: This test was performed using the Siemens ([employer]) chemiluminescent method. Values obtained from different assay methods cannot be used interchangeably. CA 15-3 levels, regardless of value, should not be interpreted as absolute evidence of the presence or absence of disease. Test Performed at: [facility] [address] [place] [address] Topher Lang MD Blood 01/31/2025 1:54 PM CDT 01/31/2025 1:54 PM CDT Sinan Vicente MD CHEMISTRY ORDERABLES Final Resu lt [facility] [phone] [facility] [address] [place] [address] * XR DEXA BONE DENSITY AXIAL 1 OR MORE SITES (07/22/2022 9:18 AM REGULATOR ASSEMBLER) Anatomical Region Laterality Modality Digital Radiogra phy 07/22/2022 9:18 AM REGULATOR ASSEMBLER Impressions 07/22/2022 9:30 AM REGULATOR ASSEMBLER IMPRESSION: This is a summary page. Please refer to the complete detailed report found in the Imaging Section of the [facility] EMR. Osteopenia. Lumbar Spine: T-Score: 0.1 [...] Sweeney MD DICTATION LOCATION: 07/22/2022 9:30 AM REGULATOR ASSEMBLER EXAMINATION: BONE DENSITY STUDY (DXA) DATE: 07/22/2022 9:18 AM HISTORY: 77 years Female. Postmenopausal. Left hip replacement. PROCEDURE: Planar images of the lumbar spine, hip(s) and forearm(s) using a [employer] DEXA scanner for bone mineral density determination [...] lumbar spine, hip(s) and forearm(s) using a [employer] DEXA scanner for bone mineral density determination [...] found in the Imaging Section of the [facility] EMR. Osteopenia. Lumbar Spine: T-Score: 0.1 [...] Most Recently Relevant to Health Maintenance Insurance [employer] [facility] RX AETNA Medicare Part D RX [employer] (INTERNAL) [facility] [employer] [facility] Care Teams Manager Hvac Relationship Specialty Start Date End Date Master Valentin MD [address] [place] [address] PCP - General 05/23/15
--- OUTSIDE RECORDS SUMMARY | 2025-04-01 11:49 | XMS_ITS | Encounter Summary ---
Author Organization [facility] Address [address] [facility] Attn: Epic Prelude ADT LESLY HERNANDEZ [address] Care Team Providers Care Dope Maintenance Worker Name Role Phone Master Valentin MD Primary Care Provider +1- [phone] Encounter Details Date Type Department Care Team (Late Contact Info) Description 11/09/1998 Outpatient Historical Social History Tobacco Use Types Packs/Day Years Used Date Smoking Tobacco: Never Assessed Comments Unknown Sex and Gender Information Value Date Recorded Sex Assigned at Not on file Legal Sex Female 4:22 AM LINE INSTALLER [place] Gender Identity Not on file Sexual Orientation Not on file documented as of this encounter Plan of Treatment Upcoming Encounters Date Type Department Care Team (Late st Contact Info) Description 04/07/2025 11:00 AM CDT Office Visit [facility] Oncology and Hematology - [place] [address] [facility] [address] [place] [address] Sinan Vicente MD [address] [facility] [address] [place] [address] documented as of this encounter Visit Diagnoses Not on filedocumented in this encounter Care Teams Dope Maintenance Worker Relationship Specialty Start Date End Date Master Valentin MD [address] [place] [address] PCP - General 05/23/15 documented as of this encounter
--- OUTSIDE RECORDS SUMMARY | 2025-04-01 11:49 | XMS_ITS | Encounter Summary ---
Author Organization [facility] Address [address] [place] [address] Care Team Providers Care Assistant Teacher Primary Name Role Phone Master Valentin MD Primary Care Provider +1- [phone] Encounter Details Date Type Department Care Team (Latest Contact Info) Description 06/22/2008 Outpatient Historical [facility] Radiation Oncology [place] [address] [place] [phone] Marcie Berman MD NO ADDRESS ON FILE Master Valentin MD [address] [place] [address] Malignant Neoplasm of Upper-Outer Quadrant of Female Breast (CMS/HCC) Social History Tobacco Use Types Packs/Day Years Used Date Smoking Tobacco: Never Assessed Comments Unknown Sex and Gender Information Value Date Recorded Sex Assigned at Not on file Legal Sex Female 4:22 AM WOODYARD CRANE OPERATOR Gender Identity Not on file Sexual Orientation Not on file documented as of this encounter Plan of Treatment Upcoming Encounters Date Type Department Care Team (Late st Contact Info) Description 04/07/2025 11:00 AM CDT Office Visit [facility] Oncology and Hematology - [place] [address] [facility] [address] [place] [address] Sinan Vicente MD [address] [facility] [address] [place] [address] documented as of this encounter Visit Diagnoses Diagnosis Malignant neoplasm of upper-outer quadrant of female breast (CMS/HCC) Malignant neoplasm of upper-outer quadrant of female breast documented in this encounter Care Teams Assistant Teacher Primary Relationship Specialty Start Date End Date Master Valentin MD [address] [place] [address] PCP - General 05/23/15 documented as of this encounter
--- OUTSIDE RECORDS SUMMARY | 2025-04-01 11:49 | XMS_ITS | Encounter Summary ---
Author Organization [facility] Address [address] [place] [address] Care Team Providers Care Natural Sciences Manager Name Role Phone Master Valentin MD Primary Care Provider +1- [phone] Encounter Details Date Type Department Care Team (Latest Contact Info) Description 06/23/2008 Outpatient Historical [facility] Radiation Oncology [place] [address] [place] [address] Marcie Berman MD NO ADDRESS ON FILE Malignant Neoplasm of Upper-Outer Quadrant of Female Breast (CMS/HCC) Social History Tobacco Use Types Packs/Day Years Used Date Smoking Tobacco: Never Assessed Comments Unknown Sex and Gender Information Value Date Recorded Sex Assigned at Not on file Legal Sex Female 4:22 AM EPOXY COATINGS INSTALLER Gender Identity Not on file Sexual Orientation Not on file documented as of this encounter Plan of Treatment Upcoming Encounters Date Type Department Care Team (Late st Contact Info) Description 04/07/2025 11:00 AM CDT Office Visit [facility] Oncology and Hematology - [place] [address] [facility] [address] [place] [address] Sinan Vicente MD [address] [facility] [address] [place] [address] documented as of this encounter Visit Diagnoses Diagnosis Malignant neoplasm of upper-outer quadrant of female breast (CMS/HCC) Malignant neoplasm of upper-outer quadrant of female breast documented in this encounter Care Teams Natural Sciences Manager Relationship Specialty Start Date End Date Master Valentin MD [address] [place] [address] PCP - General 05/23/15 documented as of this encounter
--- OUTSIDE RECORDS SUMMARY | 2025-04-01 11:49 | XMS_ITS ---
Author Organization [email or web address] [address] [place] [address] [place] [address] Care Team Providers Care Practice Assistant Name Role Phone Master Valentin MD Primary Care Provider +1- [phone] Active Problems Patient Care Coordination No te Formatting of this note migh t be different from the original. 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
--- OUTSIDE RECORDS SUMMARY | 2025-04-01 11:49 | XMS_ITS | Encounter Summary ---
Author Organization [facility] Address [address] [place] [address] Care Team Providers Care Flatwork Assembler Name Role Phone Master Valentin MD Primary Care Provider +1- [phone] Encounter Details Date Type Department Care Team (Latest Contact Info) Description 03/08/2009 Outpatient Historical [facility] Dflt Department Marcie Berman MD NO [...] file Legal Sex Female 4:22 AM WATER CONSERVATION SPECIALIST Gender Identity Not on file Sexual Orientation Not on file documented as of this encounter Plan of Treatment Upcoming Encounters Date Type Department Care Team (Late st Contact Info) Description 04/07/2025 11:00 AM CDT Office Visit [facility] Oncology and Hematology - [place]ui [address] [facility] [address] [place] [address] Sinan Vicente MD [address] [facility] [address] [place] [address] documented as of this encounter Visit Diagnoses Diagnosis Malignant neoplasm of upper-outer quadrant of female breast (CMS/HCC) Malignant neoplasm of upper-outer quadrant of female breast documented in this encounter Care Teams Flatwork Assembler Relationship Specialty Start Date End Date Master Valentin MD [address] [place] [address] PCP - General 05/23/15 documented as of this encounter
--- OUTSIDE RECORDS SUMMARY | 2025-04-01 11:49 | XMS_ITS | Encounter Summary ---
Author Organization [facility] Address [address] [place] [address] Care Team Providers Care Business Unit Director Name Role Phone Master Valentin MD Primary Care Provider +1- [phone] Encounter Details Date Type Department Care Team (Latest Contact Info) Description 07/31/2001 Outpatient Historical HIS IMG-LAB [facility] Master Valentin MD [address] [place] [address] FEMALE CLIMACTERIC STATE (Primary Dx) Social History Tobacco Use Types Packs/Day Years Used Date Smoking Tobacco: Never Assessed Comments Unknown Sex and Gender Information Value Date Recorded Sex Assigned at Not on file Legal Sex Female 4:22 AM PLAYER PIANO TECHNICIAN Gender Identity Not on file Sexual Orientation Not on file documented as of this encounter Plan of Treatment Upcoming Encounters Date Type Department Care Team (Late st Contact Info) Description 04/07/2025 11:00 AM CDT Office Visit [facility] Oncology and Hematology - Rui [address] [facility] [address] [place] [address] Sinan Vicente MD [address] [facility] [address] [place] [address] documented as of this encounter Visit Diagnoses Diagnosis Symptomatic menopausal or female climacteric states- Primary documented in this encounter Care Teams Business Unit Director Relationship Specialty Start Date End Date Master Valentin MD [address] [place] [address] PCP - General 05/23/15 documented as of this encounter
--- OUTSIDE RECORDS SUMMARY | 2025-04-01 11:49 | XMS_ITS | Encounter Summary ---
Author Organization [facility] Address [address] [place] [address] Care Team Providers Care Cigar Packing Examiner Name Role Phone Master Valentin MD Primary Care Provider +1- [phone] Encounter Details Date Type Department Care Team (Latest Contact Info) Description 03/11/2000 Outpatient Historical HIS X/RAY-LAB [facility] Master Valentin MD [address] [place] [address] Other screening mammogram (Primary Dx) Social History Tobacco Use Types Packs/Day Years Used Date Smoking Tobacco: Never Assessed Comments Unknown Sex and Gender Information Value Date Recorded Sex Assigned at Not on file Legal Sex Female 4:22 AM COUNSELOR SUPERVISOR Gender Identity Not on file Sexual Orientation Not on file documented as of this encounter Plan of Treatment Upcoming Encounters Date Type Department Care Team (Late st Contact Info) Description 04/07/2025 11:00 AM CDT Office Visit [facility] Oncology and Hematology - [place]ui [address] [facility] [address] [place] [address] Sinan Vicente MD [address] [facility] [address] [place] [address] documented as of this encounter Visit Diagnoses Diagnosis Other screening mammogram- Primary documented in this encounter Care Teams Cigar Packing Examiner Relationship Specialty Start Date End Date Master Valentin MD [address] [place] [address] PCP - General 05/23/15 documented as of this encounter
[2025-04-01 12:04] LABS: Hematocrit 36.3 % (37.0-47.0); Hemoglobin 12.4 g/dL (12.0-15.0); Immature Granulocyte Percent A 0.4 % (0-0.5); Lymphocytes Absolute Auto 0.62 K/mm3 (0.9-3.2); Mean Corpuscular HGB Conc 34.2 g/dl (32-36); Mean Corpuscular Hemoglobin 36.5 pg (26-34); Mean Corpuscular Volume 106.8 fl (80-100); Nucleated Red Blood Cells Absolute Auto 0.000 K/mm3 (0.0-0.012); Nucleated Red Blood Cells Perc 0.0 % (0.0-0.2); Platelet Count Result 205 k/mm3 (150-375); Red Blood Count 3.40 M/mm3 (4.2-5.4); White Blood Count 2.4 K/mm3 (4.5-10.0)
[2025-04-01 12:08] LABS: Schistocytes None Seen
[2025-04-01 12:13] LABS: Macrocytosis 1+ (NORMAL)
[2025-04-01 14:13] LABS: Alanine Aminotransferase 40 U/L (6-35); Albumin Level 4.2 g/dL (3.5-5.1); Alkaline Phosphatase 62 U/L (38-126); Anion Gap 9 mmol/L (4-12); Aspartate Amino Transferase 46 U/L (14-36); Bilirubin,Total 0.7 mg/dL (0.2-1.3); Blood Urea Nitrogen 18 mg/dL (7-17); Calcium 9.3 mg/dL (8.4-10.2); Carbon Dioxide 26 mmol/L (22-30); Chloride 104 mmol/L (98-107); Estimated Glomerular Filt Rate > 60; Glucose 104 mg/dL (65-110); Potassium 4.4 mmol/L (3.4-5.0); Sodium 139 mmol/L (137-145); Total Protein 6.8 g/dL (6.3-8.2)
== END 2025-04-01 11:47 | disposition home or self-care (01) ==
PROVIDERS: Visit Provider Internal Medicine Hematology & Oncology
DX: C50.011 Malignant neoplasm of nipple and areola, right female breast (principal)
CPT/HCPCS: 36415; 80053; 85025; 86300

== ENCOUNTER 2025-05-17 15:08 | Outpatient (CLI) | payer MEDICARE, SELFPAY ==
[2025-05-17 15:22] LABS: Hematocrit 38.4 % (37.0-47.0); Hemoglobin 12.9 g/dL (12.0-15.0); Immature Granulocyte Percent A 0.3 % (0-0.5); Lymphocytes Absolute Auto 0.87 K/mm3 (0.9-3.2); Mean Corpuscular HGB Conc 33.6 g/dl (32-36); Mean Corpuscular Hemoglobin 36.1 pg (26-34); Mean Corpuscular Volume 107.6 fl (80-100); Nucleated Red Blood Cells Absolute Auto 0.000 K/mm3 (0.0-0.012); Nucleated Red Blood Cells Perc 0.0 % (0.0-0.2); Platelet Count Result 299 k/mm3 (150-375); Red Blood Count 3.57 M/mm3 (4.2-5.4); White Blood Count 3.1 K/mm3 (4.5-10.0)
[2025-05-17 15:26] LABS: Schistocytes None Seen
[2025-05-17 15:27] LABS: Macrocytosis 1+ (NORMAL)
--- OUTSIDE RECORDS SUMMARY | 2025-05-17 16:28 | XMS_ITS | Encounter Summary ---
Author Organization [facility] Address [address] [place] [address] Care Team Providers Care Rpg Developer Name Role Phone Master Valentin MD Primary Care Provider +1- [phone] Encounter Details Date Type Department Care Team (Latest Contact Info) Description 06/22/2008 Outpatient Historical [facility] Radiation Oncology [place] [address] [place] [phone] Marcie Berman MD NO ADDRESS ON FILE Master Valentin MD [address] [place] [address] Malignant Neoplasm of Upper-Outer Quadrant of Female Breast (CMS/HCC) Social History Tobacco Use Types Packs/Day Years Used Date Smoking Tobacco: Never Assessed Comments Unknown Sex and Gender Information Value Date Recorded Sex Assigned at Not on file Legal Sex Female 4:22 AM DIRECTOR SOFTWARE DEVELOPMENT Gender Identity Not on file Sexual Orientation Not on file documented as of this encounter Plan of Treatment Upcoming Encounters Date Type Department Care Team (Late st Contact Info) Description 05/20/2025 9:30 AM DIRECTOR SOFTWARE DEVELOPMENT Office Visit [facility] Oncology and Hematology - [place] [address] [facility] [address] [place] [address] Sinan Vicente MD [address] [facility] [address] [place] [address] documented as of this encounter Visit Diagnoses Diagnosis Malignant neoplasm of upper-outer quadrant of female breast (CMS/HCC) Malignant neoplasm of upper-outer quadrant of female breast documented in this encounter Care Teams Rpg Developer Relationship Specialty Start Date End Date Master Valentin MD [address] [place] [address] PCP - General 05/23/15 documented as of this encounter
--- OUTSIDE RECORDS SUMMARY | 2025-05-17 16:28 | XMS_ITS | Encounter Summary ---
Author Organization [facility] Address [address] [place] [address] Care Team Providers Care Steam Generating Powerplant Mechanic Name Role Phone Master Valentin MD Primary Care Provider +1- [phone] Encounter Details Date Type Department Care Team (Latest Contact Info) Description 10/22/2008 Outpatient Historical [facility] Radiation Oncology [place] [address] [place] [phone] Marcie Berman MD NO ADDRESS ON FILE Master Valentin MD [address] [place] [address] Malignant Neoplasm of Upper-Outer Quadrant of Female Breast (CMS/HCC) Social History Tobacco Use Types Packs/Day Years Used Date Smoking Tobacco: Never Assessed Comments Unknown Sex and Gender Information Value Date Recorded Sex Assigned at Not on file Legal Sex Female 4:22 AM 3D ANIMATOR Gender Identity Not on file Sexual Orientation Not on file documented as of this encounter Plan of Treatment Upcoming Encounters Date Type Department Care Team (Late st Contact Info) Description 05/20/2025 9:30 AM 3D ANIMATOR Office Visit [facility] Oncology and Hematology - [place] [address] [facility] [address] [place] [address] Sinan Vicente MD [address] [facility] [address] [place] [address] documented as of this encounter Visit Diagnoses Diagnosis Malignant neoplasm of upper-outer quadrant of female breast (CMS/HCC) Malignant neoplasm of upper-outer quadrant of female breast documented in this encounter Care Teams Steam Generating Powerplant Mechanic Relationship Specialty Start Date End Date Master Valentin MD [address] [place] [address] PCP - General 05/23/15 documented as of this encounter
--- OUTSIDE RECORDS SUMMARY | 2025-05-17 16:28 | XMS_ITS | Encounter Summary ---
Author Organization [facility] Address [address] [place] [address] Care Team Providers Care Marketing Developer Name Role Phone Master Valentin MD Primary Care Provider +1- [phone] Encounter Details Date Type Department Care Team (Latest Contact Info) Description 09/20/2008 Outpatient Historical [facility] Radiation Oncology [place] [address] [place] [phone] Marcie Berman MD NO ADDRESS ON FILE Master Valentin MD [address] [place] [address] Malignant Neoplasm of Upper-Outer Quadrant of Female Breast (CMS/HCC) Social History Tobacco Use Types Packs/Day Years Used Date Smoking Tobacco: Never Assessed Comments Unknown Sex and Gender Information Value Date Recorded Sex Assigned at Not on file Legal Sex Female 4:22 AM ANTENNA DESIGN ENGINEER Gender Identity Not on file Sexual Orientation Not on file documented as of this encounter Plan of Treatment Upcoming Encounters Date Type Department Care Team (Late st Contact Info) Description 05/20/2025 9:30 AM ANTENNA DESIGN ENGINEER Office Visit [facility] Oncology and Hematology - [place] [address] [facility] [address] [place] [address] Sinan Vicente MD [address] [facility] [address] [place] [address] documented as of this encounter Visit Diagnoses Diagnosis Malignant neoplasm of upper-outer quadrant of female breast (CMS/HCC) Malignant neoplasm of upper-outer quadrant of female breast documented in this encounter Care Teams Marketing Developer Relationship Specialty Start Date End Date Master Valentin MD [address] [place] [address] PCP - General 05/23/15 documented as of this encounter
--- OUTSIDE RECORDS SUMMARY | 2025-05-17 16:28 | XMS_ITS | Encounter Summary ---
Author Organization [facility] Address [address] [place] [address] Care Team Providers Care Credit Collection Associate Name Role Phone Master Valentin MD Primary Care Provider +1- [phone] Encounter Details Date Type Department Care Team (Latest Contact Info) Description 11/23/2008 Outpatient Historical [facility] Radiation Oncology [place] [address] [place] [phone] Marcie Berman MD NO ADDRESS ON FILE Master Valentin MD [address] [place] [address] Malignant Neoplasm of Upper-Outer Quadrant of Female Breast (CMS/HCC) Social History Tobacco Use Types Packs/Day Years Used Date Smoking Tobacco: Never Assessed Comments Unknown Sex and Gender Information Value Date Recorded Sex Assigned at Not on file Legal Sex Female 4:22 AM SPIRAL WINDING MACHINE HELPER Gender Identity Not on file Sexual Orientation Not on file documented as of this encounter Plan of Treatment Upcoming Encounters Date Type Department Care Team (Late st Contact Info) Description 05/20/2025 9:30 AM SPIRAL WINDING MACHINE HELPER Office Visit [facility] Oncology and Hematology - [place]ui [address] [facility] [address] [place] [address] Sinan Vicente MD [address] [facility] [address] [place] [address] documented as of this encounter Visit Diagnoses Diagnosis Malignant neoplasm of upper-outer quadrant of female breast (CMS/HCC) Malignant neoplasm of upper-outer quadrant of female breast documented in this encounter Care Teams Credit Collection Associate Relationship Specialty Start Date End Date Master Valentin MD [address] [place] [address] PCP - General 05/23/15 documented as of this encounter
--- OUTSIDE RECORDS SUMMARY | 2025-05-17 16:28 | XMS_ITS | Encounter Summary ---
Author Organization [facility] Address [address] [place] [address] Care Team Providers Care Manager Sterile Processing Name Role Phone Master Valentin MD Primary Care Provider +1- [phone] Encounter Details Date Type Department Care Team (Latest Contact Info) Description 08/12/2008 Outpatient Historical [facility] Radiation Oncology [place] [address] [place] [phone] Marcie Berman MD NO ADDRESS ON FILE Master Valentin MD [address] [place] [address] Malignant Neoplasm of Upper-Outer Quadrant of Female Breast (CMS/HCC) Social History Tobacco Use Types Packs/Day Years Used Date Smoking Tobacco: Never Assessed Comments Unknown Sex and Gender Information Value Date Recorded Sex Assigned at Not on file Legal Sex Female 4:22 AM EXCHANGE MECHANIC Gender Identity Not on file Sexual Orientation Not on file documented as of this encounter Plan of Treatment Upcoming Encounters Date Type Department Care Team (Late st Contact Info) Description 05/20/2025 9:30 AM EXCHANGE MECHANIC Office Visit [facility] Oncology and Hematology - [place] [address] [facility] 200 [place] [address] Sinan Vicente MD [address] [facility] [address] [place] [address] documented as of this encounter Visit Diagnoses Diagnosis Malignant neoplasm of upper-outer quadrant of female breast (CMS/HCC) Malignant neoplasm of upper-outer quadrant of female breast documented in this encounter Care Teams Manager Sterile Processing Relationship Specialty Start Date End Date Master Valentin MD [address] [place] [address] PCP - General 05/23/15 documented as of this encounter
--- OUTSIDE RECORDS SUMMARY | 2025-05-17 16:28 | XMS_ITS | Encounter Summary ---
Author Organization [facility] Address [address] [place] [address] Care Team Providers Care Blend Plant Operator Name Role Phone Master Valentin MD Primary Care Provider +1- [phone] Encounter Details Date Type Department Care Team (Latest Contact Info) Description 07/31/2001 Outpatient Historical [facility] Master Valentin MD [address] [place] [address] FEMALE CLIMACTERIC STATE (Primary Dx) Social History Tobacco Use Types Packs/Day Years Used Date Smoking Tobacco: Never Assessed Comments Unknown Sex and Gender Information Value Date Recorded Sex Assigned at Not on file Legal Sex Female 4:22 AM JAVA J2EE SOFTWARE ENGINEER Gender Identity Not on file Sexual Orientation Not on file documented as of this encounter Plan of Treatment Upcoming Encounters Date Type Department Care Team (Late st Contact Info) Description 05/20/2025 9:30 AM JAVA J2EE SOFTWARE ENGINEER Office Visit [facility] Oncology and Hematology - [place]ui [address] [facility] 200 [place] [address] Sinan Vicente MD [address] [facility] [address] [place] [address] documented as of this encounter Visit Diagnoses Diagnosis Symptomatic menopausal or female climacteric states- Primary documented in this encounter Care Teams Blend Plant Operator Relationship Specialty Start Date End Date Master Valentin MD [address] [place] [address] PCP - General 05/23/15 documented as of this encounter
--- OUTSIDE RECORDS SUMMARY | 2025-05-17 16:28 | XMS_ITS | Encounter Summary ---
Author Organization [facility] Address [address] [place] [address] Care Team Providers Care Philosophy And Religion Instructor Name Role Phone Master Valentin MD Primary Care Provider +1- [phone] Encounter Details Date Type Department Care Team (Latest Contact Info) Description 03/08/2009 Outpatient Historical [facility] Dflt Department Marcie Berman MD NO ADDRESS [...] on file Legal Sex Female 4:22 AM PRESS MANAGER Gender Identity Not on file Sexual Orientation Not on file documented as of this encounter Plan of Treatment Upcoming Encounters Date Type Department Care Team (Late st Contact Info) Description 05/20/2025 9:30 AM PRESS MANAGER Office Visit [facility] Oncology and Hematology - Rui [address] [facility] [address] [place] [address] Sinan Vicente MD 2[address] [facility] [address] [place] [address] documented as of this encounter Visit Diagnoses Diagnosis 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
--- OUTSIDE RECORDS SUMMARY | 2025-05-17 16:28 | XMS_ITS | Encounter Summary ---
Author Organization [facility] Address [address] [place] [address] Care Team Providers Care Program Director/Music Director Name Role Phone Master Valentin MD Primary Care Provider +1- [phone] Encounter Details Date Type Department Care Team (Latest Contact Info) Description 06/23/2008 Outpatient Historical [facility] Radiation Oncology [place] [address] [place] [address] Marcie Berman MD NO ADDRESS ON FILE Malignant Neoplasm of Upper-Outer Quadrant of Female Breast (CMS/HCC) Social History Tobacco Use Types Packs/Day Years Used Date Smoking Tobacco: Never Assessed Comments Unknown Sex and Gender Information Value Date Recorded Sex Assigned at Not on file Legal Sex Female 4:22 AM RESIZER OPERATOR Gender Identity Not on file Sexual Orientation Not on file documented as of this encounter Plan of Treatment Upcoming Encounters Date Type Department Care Team (Late st Contact Info) Description 05/20/2025 9:30 AM RESIZER OPERATOR Office Visit [facility] Oncology and Hematology - Rui 2227 [facility] 200 [place] [address] Sinan Vicente MD [address] [facility] [address] [place] [address] documented as of this encounter Visit Diagnoses Diagnosis Malignant neoplasm of upper-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
--- OUTSIDE RECORDS SUMMARY | 2025-05-17 16:28 | XMS_ITS | Encounter Summary ---
Author Organization [facility] Address [address] [place] [address] Care Team Providers Care Automatic Hemmer Name Role Phone Master Valentin MD Primary Care Provider +1- [phone] Encounter Details Date Type Department Care Team (Latest Contact Info) Description 11/29/2008 Outpatient Historical [facility] [address] Nola Morgan MD NO ADDRESS ON FILE Malignant Neoplasm of Upper-Outer Quadrant of Female Breast (CMS/HCC) Social History Tobacco Use Types Packs/Day Years Used Date Smoking Tobacco: Never Assessed Comments Unknown Sex and Gender Information Value Date Recorded Sex Assigned at Not on file Legal Sex Female 4:22 AM FULFILLMENT REPRESENTATIVE Gender Identity Not on file Sexual Orientation Not on file documented as of this encounter Plan of Treatment Upcoming Encounters Date Type Department Care Team (Late st Contact Info) Description 05/20/2025 9:30 AM FULFILLMENT REPRESENTATIVE Office Visit [facility] Oncology and Hematology - Rui [address] [facility] 200 [place] [address] Sinan Vicente MD [address] [facility] [address] [place] [address] documented as of this encounter Procedures Procedure Name Priority Date/Time Associated Diagnosis Comments CANCER ANTIGEN 27-29 Routine 11/29/2008 9:49 PM CDT COMPREHENSIVE METABOLIC PANEL Routine 11/29/2008 9:49 PM CDT documented in this encounter Results * CANCER ANTIGEN 27-29 (11/29/2008 9:49 PM CDT) Pathologist [facility] CA 27-29 14 <38 U/mL [facility] Comment: THIS TEST WAS PERFORMED USING THE SIEMENS (DAVID) CHEMILUMINESCENT METHOD. VALUES OBTAINED FROM DIFFERENT ASSAY METHODS CANNOT BE USED INTERCHANGEABLY. CA27.29 LEVELS, REGARDLESS OF VALUE, SHOULD NOT BE INTERPRETED ABSOLUTE EVIDENCE OF THE PRESENCE OR ABSENCE OF DISEASE. Lab test performed by: [place] [id number] [address] [place] [address] JANEEN CRAWFORD MDThitamera test was performed using the VibeSec/David CA 27.29 Assay. 11/29/2008 9:49 PM CDT 11/29/2008 9:57 PM CDT us Nola Morgan MD CHEMISTRY ORDERABLES COM Carolyn Medafor Result INTERFACE SYSTEM Refer to clinic/hospital department [facility] CLIA# [id number] [address] [facility] [place] [address] * (ABNORMAL) COMPREHENSIVE METABOLIC PANEL (11/29/2008 9:49 PM CDT) [facility] CREATININE 0.77 0.51 - 0.95 mg/dL [facility] ALT 28 0 - 31 U/L [facility] SODIUM 139 135 - 145 mmol/L [facility] ALKALINE PHOSPHATASE 86 35 - 104 U/L [facility] CO2 25 22 - 30 mmol/L [facility] BILIRUBIN TOTAL 0.3 0.2 - 1.0 mg/dL [facility] POTASSIUM 4.1 3.5 - 4.9 mmol/L [facility] TOTAL PROTEIN 7.2 6.3 - 8.6 g/dL [facility] GLUCOSE 100(H) 65 - 99 mg/dL [facility] AST 26 12 - 32 U/L [facility] BUN 13 6 - 20 mg/dL [facility] CALCIUM 9.8 8.6 - 10.2 mg/dL [facility] ALBUMIN 4.5 3.4 - 4.8 g/dL [facility] CHLORIDE 102 96 - 108 mmol/L [facility] GFR, >60 >=60 mL/min/1. 7 sq meter [facility] GFR >60 >=60 mL/min/1. 7 sq meter [facility] Comment: Modification of Diet in Renal Disease (MDRD) study formula. Estimated GFR rate interpretative information for both Americans and non- Americans is available on the 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
--- OUTSIDE RECORDS SUMMARY | 2025-05-17 16:28 | XMS_ITS | Encounter Summary ---
Author Organization [facility] Address [address] [place] [address] Care Team Providers Care Cloth Napping Supervisor Name Role Phone Master Valentin MD Primary Care Provider +1- [phone] Encounter Details Date Type Department Care Team (Latest Contact Info) Description 07/31/2001 Outpatient Historical [facility] Master Valentin MD [address] [place] [address] SCREENING MAMM-MAILG NEOPL-OTHER (Primary Dx) Social History Tobacco Use Types Packs/Day Years Used Date Smoking Tobacco: Never Assessed Comments Unknown Sex and Gender Information Value Date Recorded Sex Assigned at Not on file Legal Sex Female 4:22 AM LIQUID FLAVOR COMPOUNDER Gender Identity Not on file Sexual Orientation Not on file documented as of this encounter Plan of Treatment Upcoming Encounters Date Type Department Care Team (Late st Contact Info) Description 05/20/2025 9:30 AM LIQUID FLAVOR COMPOUNDER Office Visit [facility] Oncology and Hematology - Rui [address] [facility] 200 [place] [address] Sinan Vicente MD [address] [facility] [address] [place] [address] documented as of this encounter Visit Diagnoses Diagnosis Other screening mammogram- Primary documented in this encounter Care Teams Cloth Napping Supervisor Relationship Specialty Start Date End Date Master Valentin MD [address] [place] [address] PCP - General 05/23/15 documented as of this encounter
--- OUTSIDE RECORDS SUMMARY | 2025-05-17 16:28 | XMS_ITS | Encounter Summary ---
Author Organization [facility] Address [address] [place] [address] Care Team Providers Care Tool Maker Bench Name Role Phone Master Valentin MD Primary Care Provider +1- [phone] Encounter Details Date Type Department Care Team (Latest Contact Info) Description 03/11/2000 Outpatient Historical [facility] X/[facility] Master Valentin MD [address] [place] [address] Other screening mammogram (Primary Dx) Social History Tobacco Use Types Packs/Day Years Used Date Smoking Tobacco: Never Assessed Comments Unknown Sex and Gender Information Value Date Recorded Sex Assigned at Not on file Legal Sex Female 4:22 AM INDUSTRIAL FURNACE FABRICATOR Gender Identity Not on file Sexual Orientation Not on file documented as of this encounter Plan of Treatment Upcoming Encounters Date Type Department Care Team (Late st Contact Info) Description 05/20/2025 9:30 AM INDUSTRIAL FURNACE FABRICATOR Office Visit [facility] Oncology and Hematology - Rui 2[address] [facility] [address] [place] [address] Sinan Vicente MD 2[address] [facility] [address] [place] [address] documented as of this encounter Visit Diagnoses Diagnosis Other screening mammogram- Primary documented in this encounter Care Teams Tool Maker Bench Relationship Specialty Start Date End Date Master Valentin MD [address] [place] [address] PCP - General 05/23/15 documented as of this encounter
--- OUTSIDE RECORDS SUMMARY | 2025-05-17 16:28 | XMS_ITS | Encounter Summary ---
Author Organization [facility] Address [address] [facility] Attn: Epic Prelude ADT LESLY HERNANDEZ [address] Care Team Providers Care Certified Social Workers In Health Care Name Role Phone Master Valentin MD Primary Care Provider +1- [phone] Encounter Details Date Type Department Care Team (Late Contact Info) Description 11/09/1998 Outpatient Historical Social History Tobacco Use Types Packs/Day Years Used Date Smoking Tobacco: Never Assessed Comments Unknown Sex and Gender Information Value Date Recorded Sex Assigned at Not on file Legal Sex Female 4:22 AM CORRECTIONS CORPORAL Gender Identity Not on file Sexual Orientation Not on file documented as of this encounter Plan of Treatment Upcoming Encounters Date Type Department Care Team (Late Contact Info) Description 05/20/2025 9:30 AM CORRECTIONS CORPORAL Office Visit [facility] Oncology and Hematology - Rui [address] [facility] 200 [place] [address] Sinan Vicente MD [address] [facility] [address] [place] [address] documented as of this encounter Visit Diagnoses Not on filedocumented in this encounter Care Teams Certified Social Workers In Health Care Relationship Specialty Start Date End Date Master Valentin MD [address] [place] [address] PCP - General 05/23/15 documented as of this encounter
--- OUTSIDE RECORDS SUMMARY | 2025-05-17 16:29 | XMS_ITS | Clinical Summary ---
Author Organization [facility] [address] [place] [address] [place] [phone] Care Team Providers Care Automatic Fancy Machine Operator Name Role Phone Master Valentin MD Primary Care Provider [phone]- [phone] Allergies Active Allergy Reactions Criticality Noted Date [...] ONCE DAILY AFTER BREAKFAST 30 Tablet 6 05/05/2025 4:43 PM CDT 5 11/11/19 26 Active palbociclib 100 mg tablet Take 1 Tablet (100 mg) by mouth daily for 21 days on, followed by 7 days off 21 Tablet 5 5 Active latanoprost (XALATAN) 0.005 % solution INSTILL ONE DROP INTO BOTH EYES ONCE AT BEDTIME 7.5 mL 3 05/05/2025 4:43 PM CDT 5 Active amoxicillin (AMOXIL) 500 mg capsule Take 4 capsules by mouth before dental work. 20 Capsule 2 05/05/2025 4:43 PM CDT 5 Active Active Problems Patient Care Coordination No te Formatting of this note migh t be different from the original. 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 Other lymphedema 03/01/2013 Malignant neoplasm of female breast 02/09/2009 Overview (03/01/2013): 2009;Locally advanced R breast cancer, ER+,invasive lobular Trial of neoadjuvent Femara Mastectomy/LN, [id number] III Continued Femara: post-op RT Chronic lymphedema Breast cancer Encounters Date Type Department Care Team Description 04/26/2025 External Device Data STL ABSTRACTION Provider, Abstract 04/19/2025 External Device Data STL ABSTRACTION Provider, Abstract 04/07/2025 11:00 AM CDT Office Visit [facility] [address] [place] [address] Sinan Vicente MD 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, right (CMS/HCC) (Primary Dx) 04/05/2025 Orders Only [facility] - [place] [place] [address] Sinan Vicente MD 04/04/2025 Orders Only [facility] [address] [place] [address] Sinan Vicente MD 03/29/2025 External Device Data STL ABSTRACTION Provider, Abstract 03/21/2025 Orders Only [facility] [address] [place] [address] Sinan Vicente MD 03/07/2025 Telephone [facility] [address] [place] [address] Sinan Vicente MD XR Dexa Bone Density (Spoke with the patient to provide XR Dexa appt info) 03/01/2025 External Device Data STL ABSTRACTION Provider, Abstract 02/26/2025 11:15 AM CDT - 02/26/2025 11:59 PM CDT Hospital Encounter [facility] [address] [place] [phone] Master Valentin MD Discharge Disposition: Home or Self Care 02/22/2025 11:15 AM CDT Office Visit [facility] [address] [place] [address] Sinan Vicente MD 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, right (CMS/HCC) (Primary Dx); Osteopenia of multiple sites 02/15/2025 External Device Data STL ABSTRACTION Provider, Abstract 02/15/2025 Orders Only [facility] [address] [place] [address] Sinan Vicente MD 02/14/2025 Orders Only [facility] [address] [place] [address] Sinan Vicente MD 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, right (CMS/HCC) (Primary Dx) from Last 3 Months Immunizations Immunization Administration [...] on file Legal Sex Female 4:22 AM FORESTRY ENGINEER Gender Identity Not on file Sexual Orientation Not on file Occupation Industry Job Start Date Job End Date Not on file Not on file Not on file Not on file Last Filed Vital Signs Vital Sign Reading Time Taken Comments Blood Pressure 167/77 04/07/2025 11:04 AM CDT Pulse 89 04/07/2025 11:00 AM CDT Temperature 36.2 C (97.2 F) 04/07/2025 11:00 AM CDT Respiratory Rate 16 04/07/2025 11:0 0 AM CDT Oxygen Saturation 95% 04/07/2025 11: 00 AM CDT Inhaled Oxygen Concentration - - Weight 83.8 kg (184 lb 12.8 oz) 025 11:00 AM CDT Height 162.6 cm (5' 4) 02/22/2025 11:1 6 AM CDT Body Mass Index 31.72 02/22/2025 11:16 AM CDT Plan of Treatment Upcoming Encounters Date Type Department Care Team (Late st Contact Info) Description 05/20/2025 9:30 AM FORESTRY ENGINEER Office Visit [facility]ology - [place] [address] [facility] [address] [place] [address] Sinan Vicente MD [address] [facility] [address] [place] [address] Health Maintenance Due Date Last Done Comments DTAP/TDAP/TD VACCINES (1 - Tdap) 02/22/1964 PNEUMOCOCCAL VACCINE 50+ YEA RS (1 of 2 - PCV) 02/22/1964 ZOSTER VACCINE (1 of 2) 02/22/1964 RSV VACCINE (60+ or ) (1 - 1-dose 75+ series) 02/22/2020 Medicare Advantage ([place]) Preventative Visit/Annual Wellness Visit 07/14/2024 INFLUENZA VACCINE (#1) 2025 COVID-19 Vaccine (2024-2 6 season) 2025 04/23/2022, 10/29/2021, 07/02/2021, Additional history exists OSTEOPOROSIS SCREENING 07/22/2027 3, 03/02/2014, 02/24/2012, Additional history exists Procedures Procedure Name Priority Date/Time Associated Diagnosis Comments CANCER ANTIGEN 15-3 Routine 04/05/2025 2 :06 PM CDT 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, right (CMS/HCC) COMPREHENSIVE METABOLIC PANEL Routine 04/01/2025 2:55 PM CDT CHG CA 15 3 Routine 04/01/2025 7:56 AM CDT NM BONE DENSITY Routine 03/16/2025 9:20 AM CDT MAMMO 3D OLGA SCREEN UNI LT W OR WO CAD Routine 02/26/2025 11:34 AM CDT Visit for screening mammogram [facility] CA 15 3 Routine 02/14/2025 12:43 PM CDT COMPREHENSIVE METABOLIC PANEL Routine 02/14/2025 11:47 AM CDT CBC WITH AUTODIFFERENTIAL Routine 02/14/2025 10:47 AM CDT CBC WITH AUTODIFFERENTIAL Routine 02/14/2025 10:42 AM CDT XR DEXA BONE DENSITY AXIAL 1 OR MORE SITES Routine 07/22/2022 9:18 AM FORESTRY ENGINEER Aromatase inhibitor use from Last 3 Months or Most Recently Relevant to Health Maintenance Results * CANCER ANTIGEN 15-3 (04/05/2025 2:06 PM CDT) CA 15-3 24 <32 U/mL [employer] Comment: This test was performed using the Siemens (Qwaya) chemiluminescent method. Values obtained from different assay methods cannot be used interchangeably. CA 15-3 levels, regardless of value, should not be interpreted as absolute evidence of the presence or absence of disease. Test Performed at: [place] [address] [place] [address] Topher Lang MD Blood 04/05/2025 2:06 PM CDT 04/05/2025 2:06 PM CDT us Sinan Vicente MD CHEMISTRY ORDERABLES Final Resu lt [facility] [phone] [place] [address] * COMPREHENSIVE METABOLIC PANEL (04/01/2025 2:55 PM CDT) Only the most recent of2 resultswithin the time period is included. Blood us Sinan Vicente MD CHEMISTRY ORDERABLES Final Resu lt * CHG CA 15 3 (04/01/2025 7:56 AM CDT) Only the most recent of2 resultswithin the time period is included. us Sinan Vicente MD [facility] - LABORATORY Final Result * NM BONE DENSITY (03/16/2025 9:20 AM [...] MD MAMMO ORDERABLES Final Res ult * CBC WITH AUTODIFFERENTIAL (02/14/2025 10:47 AM CDT) Only the most recent of2 resultswithin the time period is included. Blood Sinan Vicente MD HEMATOLOGY ORDERABLES Final Res ult * XR DEXA BONE DENSITY AXIAL 1 OR MORE SITES (07/22/2022 9:18 AM FORESTRY ENGINEER) Anatomical Region Laterality Modality Digital Radiogra phy 07/22/2022 9:18 AM FORESTRY ENGINEER Impressions 07/22/2022 9:30 AM FORESTRY ENGINEER IMPRESSION: This is a summary page. Please refer to the complete detailed report found in the Imaging Section of the [facility] EMR. Osteopenia. Lumbar Spine: T-Score: 0.1 Right [...] Dr. Jabier Sweeney MD DICTATION LOCATION: 1 Narrative 07/22/2022 9:30 AM FORESTRY ENGINEER EXAMINATION: BONE DENSITY STUDY (DXA) DATE: 07/22/2022 [...] found in the Imaging Section of the [facility] EMR. Osteopenia. Lumbar Spine: T-Score: 0.1 Right [...] Recently Relevant to Health Maintenance Insurance [employer] [facility] RX [employer] Medicare Part D RX [employer] (INTERNAL) [facility] [employer] PPO MCR Care Teams Automatic Fancy Machine Operator Relationship Specialty Start Date End Date Master Valentin MD [address] [place] [address] PCP - General 05/23/15
--- OUTSIDE RECORDS SUMMARY | 2025-05-17 16:29 | XMS_ITS ---
Author Organization [employer] [address] [place] [address] [place] [phone] Care Team Providers Care Lieutenant Shift Supervisor Name Role Phone Master Valentin MD Primary Care Provider [phone]- [phone] Active Problems Patient Care Coordination No te Formatting of this note migh t be different from the original. 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
--- OUTSIDE RECORDS SUMMARY | 2025-05-17 16:29 | XMS_ITS | Clinical Summary ---
Author Organization [facility] Address [address] [place] [address] Care Team Providers Care Dye Machine Operator Name Role Phone Unavailable Primary Care [...] - 1-dose 75+ series) 02/22/2020 COVID-19 Vaccine (2024-2 6 season) 2025 Influenza Adult (#1) 2025 Hepatitis A Vaccines Aged Out No long er eligible based on patient's age to complete this topic Meningococcal B Vaccine Aged Out No l onger eligible based on patient's age to complete this topic Meningococcal Vaccine Aged Out No danile cheryl eligible based on patient's age to complete this topic RSV Immunizations Under 20 Months Aged Out No longer eligible based on patient's age to complete this topic
--- OUTSIDE RECORDS SUMMARY | 2025-05-17 16:29 | XMS_ITS | Data Portability ---
Author Organization [facility] Address [address] [place] [address] Assessment No assessment recorded. Plan of Treatment Reminders Order Date Submit Date Provider Last Modified By Organization Details Last Modified Time Details Appointments [facility] PATIENT 2024 12:30P Sherlyn Valentin M.D. Not available Not available Not available Lab HbA1c (hemoglo bin A1c), blood 2023 024 [facility], [address], [place], [address], 09/29/2023 08:03:45 lipid panel, serum 2023 024 [facility], [address] [place], [address], 09/29/2023 08:03:46 CMP, serum or plasma 2023 024 [facility], [address], [place], [address], 09/29/2023 08:03:46 CBC w/ auto diff 2023 024 [facility], [address], [place], [address], 09/29/2023 08:03:46 Referral otolaryn gologist referral 2023 024 [facility] Har[facility], [address], [address], [place], [address], 04/01/2024 07:32:15 Procedures None recorded . Surgeries None recorded . Imaging None recorded . Medication Orders compound ed medicati on 2024 025 [facility], [address] [facility], [place], [address], 03/01/2025 15:33:20 amoxicil colby 500 mg capsule 2024 025 [facility], [address], [place], [place], [id number], 03/01/2025 15:32:13 compound ed medicati on [address] [facility], [address] [facility], [place], [address], 10/29/2024 10:42:05 amoxicil colby 500 mg capsule 2024 025 [facility], [address], [place], [place], [id number], 10/29/2024 10:41:01 compound ed medicati on 2023 024 [facility], [address] [facility], [place], [address], 03/01/2025 14:12:18 compound ed medicati on 2023 024 [facility], [address] [facility], [place], [address], 03/01/2025 14:12:26 Natrum Muriatic um 2023 024 [facility], [address], [place], [place], [id number], 03/25/2024 15:40:58 compound ed medicati on 2023 024 [facility] [address], [address] [facility] , [place], [place], [id number], 03/25/2024 14:13:33 amoxicil colby 500 mg capsule 2023 024 [facility], [address] [facility] , [place], [place], [id number], 09/22/2023 17:47:44 Patient TargetsNo targets recorded. Patient Instructions Encounter Date Encounter Id Patient Instructions Last Modified By Organization Details Last Modified Time 03/25/2024 [id number] hearing loss: care instructions [email or web address] Not available 03/25/2024 15:40:57 Renny Harrington MD Ear Nose Throat specialist [address] [place] [address] [address] [place] [id number] [email or web address] Not available 03/25/2024 15:40:50 Reason for Referral Housing Officer Referral fo r Hearing loss Referring Physician: Master Valentin, Family Medicine, Encounter Date: 03/25/2024 Results Created Date Observation Date Name Description Value Unit Range Abnormal Flag Note LastModifiedBy Organization Detail LastModifiedTime 02/27/2002/26/2025 MAMMO , scree mariah, bilat eral No observ ation record ed. [place] [address], [place], [address], 03/01/2025 15:11:01 Result Notes None recorded. Problems Name Problem SNOMED Code Status Onset Date Resolution Date Notes Provider Name and Address Organization Details Recorded Time Rib pain 270242582 Active Not Available [facility] 11:56:35 Periapical abscess 947568125 Active Not Available [facility] 11:56:35 Osteoarthriti s of hip 756647731 Active Not Available [facility] 2 11:56:35 Menopausal symptom 18920987 Active Not Available [facility] 2 11:56:35 Malignant neoplasm of female breast 097863406 Active Not Available [facility] 2 11:56:35 Primary insomnia 7541573 Active Not Available [facility] 2 11:56:35 Low back pain 978674785 Active Not Available [facility] 2 11:56:35 Urinary tract infectious disease 56993023 Active 2016 Not Available [facility] 2 11:56:35 Eczema 64661355 Active 2019 Not Available [facility] 2 11:56:35 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 71614013 Active 2019 Not Available [facility] 2 11:56:35 Insomnia 452088375 Active 2019 Not Available [facility] 2 11:56:35 Menopause present 154356712 Active 2019 Not Available [facility] 2 11:56:35 Personal history of primary malignant neoplasm of breast 745252294 Active 2019 Not Available [facility] 2 11:56:35 Photosensitiv ity 99080999 Active 2020 Not Available [facility] 2 11:56:35 Osteoarthriti s of knee 357722495 Active 2020 Not Available [facility] 2 11:56:35 Hyperglycemia 59306955 Active 2020 Not Available [facility] 2 11:56:35 Fatigue 14252522 Active 2021 Not Available [facility] 2 11:56:35 Hearing loss 09025734 Active 2023 Master Valentin MD [address] [place], [address] , [facility] 4 15:39:54 Antibiotic prophylaxis indicated 307410689 Active 2023 Master Valentin MD [address] [place], [address] , [facility] 4 15:26:43 Problem Notes None recorded. Procedures Surgical History Date Name Laterality Status Provider Name and Address Organization Details Recorded Time 6 Orthopedic Surgery completed Master Valentin MD [address] [place], [address], [facility] 03/28/2016 14:26:59 Imaging Results None recorded. Procedure Notes None recorded. Medical Equipment None Reported. Allergies Allergen ID Allergen Name Allergen Category Reaction Reaction Severity Criticality Documentation Date Start Date Code Code System Note Provider Name and Address Organization Details Recorded Time 58804 iodine medicatio n angioedem a Not available Not available 10/19/2018 5933 RxNorm After IV contr ast mediu m Master Valentin MD [address] [facility], [place], [address], [facility] 9 21:53:54 5541 Substance with sulfonami de structure and antibacte rial mechanism of action (substanc e) medicatio n Not available Not available Not available 10/25/2013 24265 8003 SNOMED Claire Bonita stapleton, [facility] 4 12:40:55 Medications Name Sig Start Date Stop Date Status Note LastModified by Organization Details LastModified Time compounded medication 1 sc twice weekly 11/13 completed Not Available Not Available Not Available compounded medication injection 3x weekly 08/14 completed Not Available Not Available Not Available compounded medication 1 sc twice weekly 02/14 completed Not Available Not Available Not Available compounded medication injection 3x weekly 08/14 completed Not Available Not Available Not Available compounded medication 1 sc twice weekly 11/13 completed Not Available Not Available Not Available Periodontiu m Quartz 10 drops tid 2014 active Not Available Not Available Not Avai lable [place] 12 c take 2 BID 06/17 completed Not Available Not Available Not Available compounded medication 1 sc twice weekly 11/15 completed Not Available Not Available Not Available compounded medication inj. s.c. one ampule every other day. 09/21 completed Not Available Not Available Not Available Periodontiu m Quartz 10 drops tid 2014 active Not Available Not Available Not Avai lable compounded medication injection s.c. twice weekly. 03/25 completed Not Available Not Available Not Available Natrum Muriaticum 200 1m 2d; 12c 2 bid 2023 active Not Available Not Available Not Avai lable compounded medication 10 drops 3x daily 2021 active Not Available Not Available Not Avai lable compounded medication inject s.c. near r knee twice weekly 06/17 completed Not Available Not Available Not Available compounded medication injection 3x weekly 09/22 completed Not Available Not Available Not Available Periodontiu m Quartz 10 drops tid 2013 active Not Available Not Available Not Avai lable compounded medication injection 3x weekly 09/16 completed Not Available Not Available Not Available Calcarea Carbonica 200 1m 2d; 12x 3 tablets bid 2014 active Not Available Not Available Not Avai lable Periodontiu m Quartz 10 drops tid 2014 active Not Available Not Available Not Avai lable compounded medication 10 drops 3x daily 09/21 completed Not Available Not Available Not Available D-Hist 1 bid for one week then 1 bid 09/21 completed Not Available Not Available Not Available Aurum Treynor 10 pellets twice daily 2021 active Not Available Not Available Not Avai lable [place] 200 1m 2d; 12x 3 tablets bid 2014 active Not Available Not Available Not Avai lable compounded medication 1 sc twice weekly 06/17 completed Not Available Not Available Not Available compounded medication 1 sc twice weekly 11/05 completed Not Available Not Available Not Available compounded medication injection s.c. twice weekly. 03/01 completed Not Available Not Available Not Available Causticum 10m 1m 2d; 12x 3 bid 06/19 completed Not Available Not Available Not Available compounded medication 1 sc twice weekly 08/04/ 2021 08/25 /2022 completed Not Available Not Available Not Available compounded medication 1 sc twice weekly 11/05 completed Not Available Not Available Not Available [place] 200 1m 2d; 12x 2 bid 2021 active Not Available Not Available Not Avai lable compounded medication injection 3x weekly 11/15 completed Not Available Not Available Not Available [place] Carbonica 200 1m 2d; 12x 3 tablets bid 09/17 completed Not Available Not Available Not Available compounded medication injection s.c. twice weekly. 03/25 completed Not Available Not Available Not Available compounded medication injection 3x weekly 05/17 completed Not Available Not Available Not Available Causticum 200 1m 2d; 12x 3 bid 2016 active Not Available Not Available Not Avai lable compounded medication injection s.c. twice weekly. 2024 active Not Available Not Available Not Avai lable compounded medication injection s.c. twice weekly. 03/01 completed Not Available Not Available Not Available compounded medication injection 3x weekly 08/14 completed Not Available Not Available Not Available compounded medication 1 sc twice weekly 05/17 completed Not Available Not Available Not Available Prescriptio n - New 01/19 completed Not Available Not Available Not Available compounded medication injection 3x weekly 09/22 completed Not Available Not Available Not Available compounded medication 200 2d; 30x 3 q day 06/17 completed Not Available Not Available Not Available compounded medication 1 sc twice weekly 09/22 completed Not Available Not Available Not Available compounded medication injection 3x weekly 11/13 completed Not Available Not Available Not Available compounded medication injection 3x weekly 09/16 completed Not Available Not Available Not Available compounded medication injection s.c. twice weekly. 03/01 completed Not Available Not Available Not Available compounded medication 1 sc twice weekly 09/22 completed Not Available Not Available Not Available compounded medication injection 3x weekly 11/13 completed Not Available Not Available Not Available compounded medication 10 drops 3x daily 09/16 completed Not Available Not Available Not Available compounded medication inject s.c. near r knee twice weekly 02/14 completed Not Available Not Available Not Available compounded medication injection 3x weekly 06/17 completed Not Available Not Available Not Available compounded medication injection s.c. twice weekly. 03/24 completed Not Available Not Available Not Available compounded medication injection s.c. twice weekly. 2024 active Not Available Not Available Not Avai lable compounded medication injection 3x weekly 09/21 completed Not Available Not Available Not Available compounded medication injection 3x weekly 05/17 completed Not Available Not Available Not Available celecoxib 200 mg capsule TK 1 C PO QD 09/17 completed Not Available Not Available Not Available amoxicillin 500 mg capsule Take 4 capsules before dental work 2024 active Not Available Not Available Not Avai lable latanoprost 0.005 % eye drops active Not Available Not Available Not Available valacyclovi r 1 gram tablet Take 1 tablet 3 times a day by oral route. 06/17 completed Not Available Not Available Not Available prednisone 20 mg tablet 01/19 completed Not Available Not Available Not Available ciprofloxac in 500 mg tablet Take 1 tablet every 12 hours by oral route. 11/13 completed Not Available Not Available Not Available hydrocodone 10 mg-acetamin ophen 325 mg tablet 03/28 completed Not Available Not Available Not Available triamcinolo ne acetonide 0.1 % topical cream APPLY A THIN LAYER TO THE AFFECTED AREA THREE TIMES A DAY 06/17 completed Not Available Not Available Not Available amoxicillin 500 mg tablet take 4 tablets at once before dental work 10/21 completed Not Available Not Available Not Available famotidine 20 mg tablet 06/17 completed Not Available Not Available Not Available Vitamin C 1,000 mg tablet 1 qd 2019 active Not Available Not Available Not Avai lable exemestane 25 mg tablet active Not Available Not Available Not Available cephalexin 500 mg capsule 11/13 completed Not Available Not Available Not Available mupirocin 2 % topical ointment APPLY A SMALL AMOUNT TO THE AFFECTED AREA BY TOPICAL ROUTE 3 TIMES PER DAY 09/21 completed Not Available Not Available Not Available nystatin 100,000 unit/gram topical powder 06/19 completed Not Available Not Available Not Available amoxicillin 875 mg-potassiu m clavulanate 125 mg tablet Take 1 tablet every 12 hours by oral route. 09/22 completed Not Available Not Available Not Available L-Tryptopha n 500 mg capsule Take 3 capsules every day by oral route. 09/17 completed Not Available Not Available Not Available nitrofurant oin monohydrate /macrocryst als 100 mg capsule Take 1 capsule every 12 hours by oral route. 11/13 completed Not Available Not Available Not Available Fish Oil 09/17 completed Not Available Not Available Not Available mistletoe 09/17 completed Not Available Not Available Not Available Calcium Citrate + D with Mag 09/17 completed Not Available Not Available Not Available 5-HTP 100 mg capsule Take 1 capsule every day by oral route at bedtime. 09/21 completed Not Available Not Available Not Available alpha lipoic acid 300 mg capsule Take 1 capsule twice a day by oral route. 2020 active Not Available Not Available Not Avai lable Comfort EZ Insulin Syringe 1 mL 29 gauge x 1/2 USE DIRECTED FOR 2 INJECTION S THREE TIMES WEEKLY active Not Available Not Available No t Available Ibrance 100 mg capsule active Not Available Not Available N ot Available Ibrance 100 mg tablet active Not Available Not Available No t Available Vitals Date Recorded Body height Body mass index (BMI) Body weight Body temperature Heart rate Systolic And Diastolic Provider Name and Address Organization Details Last Updated DateTime 4 162.56 cm 32.4 kg/m2 97045.2 4 g 97.5 [degF] 93 /min 133/80 mm[Hg] Opal Soliman [facility] 4 16:27:07 Date Recorded Body height Heart rate Body mass index (BMI) Body weight Body temperature Systolic And Diastolic Provider Name and Address Organization Details Last Updated DateTime 5 162.56 cm 90 /min 33.1 kg/m2 82104.3 3 g 97.3 [degF] 153/75 mm[Hg] [facility] 5 09:43:19 Date Recorded Systolic And Diastolic Provider Name and Address Organization Details Last Updated DateTime 03/01/2025 110/70 mm[Hg] Master Valentin MD [address] [facility], [place], [address], [facility] 03/01/2025 15:26:09 Date Recorded Body height Heart rate Body mass index (BMI) Body weight Body temperature Systolic And Diastolic Provider Name and Address Organization Details Last Updated DateTime 5 162.56 cm 92 /min 31.4 kg/m2 40518.4 g 98.1 [degF] 165/73 mm[Hg] Sampson Soliman [facility] 5 14:11:39 Date Recorded Body height Body temperature Heart rate Body mass index (BMI) Body weight Systolic And Diastolic Systolic And Diastolic Provider Name and Address Organization Details Last Updated DateTime 4 162.56 cm 98.1 [degF] 96 /min 32.7 kg/m2 61675.7 1 g 158/81 mm[Hg] 153/82 mm[Hg] [facility]pson [facility] 4 14:12:40 Date Recorded Body height Body mass index (BMI) Body weight Heart rate Body temperature Systolic And Diastolic Provider Name and Address Organization Details Last Updated DateTime 4 162.56 cm 33.3 kg/m2 48824.6 4 g 82 /min 97.4 [degF] 160/79 mm[Hg] [facility] 4 13:52:54 Social History Question Answer Notes LastModified by Organizat ion Details LastModified Time Tobacco Smoking Status Former Smoker Not Available [facility] 05/16/2020 03:29:36 Do You Have An Advance Directive? Yes [id number] Information not available 05/16/2020 Animal Exposure? Yes Informat ion not available 02/07/2014 Do You Wear A Helmet When Biking? No [id number] Information not available 05/16/2020 Are You Blind Or Do You Have Difficulty Seeing? No [id number] Information not available 05/16/2020 Is Blood Transfusion Acceptable In An Emergency? Yes [id number] Information not available 05/16/2020 What Is Your Level Of Caffeine Consumption? Moderate [id number] Information not available 05/16/2020 How Much Tobacco Do You Chew? None [id number] Information not available 05/16/2020 What Type Of Maintenance Service Technician Do You Use? None [id number] Information not available 05/16/2020 Are You Deaf Or Do You Have Serious Difficulty Hearing? No [id number] Information not available 05/16/2020 What Type Of Diet Are You Following? GLUTENFREE [id number] Information not available 05/16/2020 Education Post Graduate Information not available 02/07/2014 Have There Been Any Changes To Your Family Or Social Situation? Yes [id number] Information not available 05/16/2020 What Is The Fluoride Status Of Your Home? Fluoridated [id number] Information not available 05/16/2020 Are There Any Guns Present In Your Home? Yes [id number] Information not available 05/16/2020 Hard Of Hearing Or Deaf In One Or Both Ears? No Information not available 02/07/2014 Single Or Multi-level Home/work? Multi Level Home Information not available 02/07/2014 What Is Your Home Situation? Both Parents [id number] Information not available 05/16/2020 Do You Use Insect Repellent Routinely? Yes [id number] Information not available 05/16/2020 Legally Blind In One Or Both Eyes? No Information not available 02/07/2014 Live Alone Or With Others? With Others Information not available 02/07/2014 Marital Status Informatio n not available 02/07/2014 Mosquito Repellent Used Routinely Yes Information not available 02/07/2014 How Many Children Do You Have? 2 [id number] Information not available 05/16/2020 What Is Your Parents' Marital Status? [id number] Information not available 05/16/2020 Performs Monthly Self-breast Exam? No Information not available 02/07/2014 Pool Exposure No Information not available 02/07/2014 Do You Use Your Seat Belt Or Car Seat Routinely? Yes [id number] Information not available 05/16/2020 Seat Belts Used Routinely No Information not available 02/07/2014 Are You Sexually Active? No [id number] Information not available 05/16/2020 Do You Have Any Siblings? 1 Sister [id number] Information not available 05/16/2020 Smoke Alarm In Home No Information not available 02/07/2014 Do You Have Smoke And Carbon Monoxide Detectors In Your Home? Yes [id number] Information not available 05/16/2020 Are You Passively Exposed To Smoke? No Information not available 02/07/2014 General Stress Level Low Information not available 02/07/2014 Do You Use Sunscreen Routinely? Yes [id number] Information not available 05/16/2020 How Many Years Have You Smoked Tobacco? 25 [id number] Information not available 05/16/2020 Do You Have Difficulty Walking Or Climbing Stairs? Yes [id number] Information not available 05/16/2020 Work Related Injury? No Information not available 02/07/2014 Sex: Unknown Functional Status Question Answer Note LastModified by Organizat ion Details LastModified Time What is your level of alcohol consumption? Occasional [id number] Information not available 05/16/2020 Are you currently employed? No [id number] Information not available 05/16/2020 Do you have difficulty doing errands alone? No [id number] Information not available 05/16/2020 Do you have difficulty dressing, bathing, grooming, or toileting? No [id number] Information not available 05/16/2020 What is your exercise level? Moderate [id number] Information not available 05/16/2020 Mental Status Question Answer Note LastModified by Organization D etails LastModified Time Do you have difficulty concentrating, remembering or making decisions? No [id number] Information no t available 05/16/2020 Are you or have you been involved with bullying? No [id number] Information not available 05/16/2020 Family History Relationship Description Onset Age of this Age Resolved Age Notes LastModified by Organization Details LastModified Time Mother Dementia [email or web address] Not availabl e 10/25/2015 19:19:07 Mother Cerebrovascu lar accident [email or web address] Not available 19:19:07 Father Malignant neoplasm of pancreas 60 [email or web address] Not available 2015 19:19:07 Maternal Grandmother Type 2 diabetes mellitus [email or web address] Not available 2020 15:40:22 Paternal Aunt Type 1 diabetes mellitus 8 8 [email or web address] Not available 2020 15:43:55 Medical History Condition Response Coronary Artery Disease N Gout N Kidney Stones N Blood Diseases N Hyperthyroidism N Hypothyroidism N COPD N Depression Y Developmental or Behavioral Disorders N Anxiety Disorder N Muscle, Joint, or Bone Problems Y Vision or Eye Problems Y Arthritis N Head Injury/Concussion N Congenital Anomalies N Cancer Y Stroke N ADHD N Bladder or Kidney Problems Y Hospital Admission other than N High Cholesterol N Liver Disease N Headaches N Fibromyalgia N Kidney Disease N Ear or Hearing Problems N Thyroid Problems N Skin Problems N Anemia N Constipation Y Mental Illness N Diabetes N Bedwetting N Heart Problems/Murmur N Seizures/Epilepsy N Tuberculosis N Diverticulitis N Asthma N Allergies Y Reflux/GERD N Heart Disease N Pulmonary Embolism N Hypertension N Chicken Pox Y Autism Spectrum Disorder (ASD) N Osteoporosis N Gynecological HistoryNo gynecological history recorded. Obstetrics History GPAL:G 0 P 0 0 0 0 Immunizations Vaccine Type Date Status Note Provider Nam e and Address Organization Details Recorded Time COVID-19, mRNA, LNP-S, PF, 100 mcg/0.5mL dose or 50 mcg/0.25mL dose 11/14/2020 completed [facility] 06/17/2022 17:05:40 COVID-19, mRNA, LNP-S, PF, 100 mcg/0.5mL dose or 50 mcg/0.25mL dose 12/28/2020 completed [facility] 06/17/2022 17:05:40 COVID-19, mRNA, LNP-S, PF, 100 mcg/0.5mL dose or 50 mcg/0.25mL dose 07/02/2021 [facility] 06/17/2022 17:05:40 COVID-19, mRNA, LNP-S, PF, 100 mcg/0.5mL dose or 50 mcg/0.25mL dose 10/29/2021 completed Sampson stapleton [facility] 06/17/2022 17:05:40 COVID-19, mRNA, LNP-S, PF, 100 mcg/0.5mL dose or 50 mcg/0.25mL dose 04/23/2022 completed Sampson stapleton, [facility] 06/17/2022 17:05:40 COVID-19, mRNA, LNP-S, bivalent, PF, 50 mcg/0.5 mL or 25mcg/0.25 mL dose 04/23/2022 completed Sampson stapleton [facility] 06/17/2022 17:05:40 Past Encounters Encounter ID Performer Location Encounter Start Date Encounter Closed Date Diagnosis/Indication Diagnosis SNOMED-CT Code Diagnosis ICD10 Code Diagnosis IMO Codes Diagnosis Note [id number] Master Valentin MD Main Office [address] [place] [address] 43260-846 3 10/25/2013 12:09:56 10/25/2013 13:41:20 Malignant neoplasm of female breast 700100233 Primary insomnia 3237925 Low back pain 548587935 [id number] Master Valentin MD Main Office [address] [place] [address] 68738-015 3 02/07/2014 16:44:45 02/07/2014 17:57:23 Malignant neoplasm of female breast 193064010 Primary insomnia 3579935 Low back pain 406556327 Rib pain 566748818 96304 Master Valentin MD Main Office [address] [place] [address] 3 05/19/2014 18:03:06 05/19/2014 19:13:16 Malignant neoplasm of female breast 253172710 Primary insomnia 4147938 Low back pain 040598887 Rib pain 984403097 Periapical abscess 185154171 85891 Master Valentin MD Main Office [address] [place] [address] 3 08/25/2014 15:56:36 08/25/2014 17:49:38 Malignant neoplasm of female breast 331956571 Primary insomnia 6109714 Low back pain 503496106 Rib pain 932123544 Periapical abscess 276048249 Osteoarthritis of hip 030271134 [id number] Master Valentin MD Main Office [address] [place] [address] 25635-980 3 12/20/2014 15:06:38 12/20/2014 16:29:57 Malignant neoplasm of female breast 013028808 Primary insomnia 1865530 Low back pain 240329392 Rib pain 251094262 Periapical abscess 728509155 Osteoarthritis of hip 838175705 14182 Master Valentin MD Main Office [address] [place] [address] 85158-522 3 03/22/2015 14:09:46 03/22/2015 15:45:26 Malignant neoplasm of female breast 413001127 Primary insomnia 0119287 Low back pain 401983353 Rib pain 042307454 Periapical abscess 105448049 Osteoarthritis of hip 537461915 92973 Master Valentin MD Main Office [address] [place] [address] 39505-251 3 07/04/2015 15:58:13 07/04/2015 17:54:12 Malignant neoplasm of female breast 184713644 C50.919 Primary insomnia 4108507 F51.01 Low back pain 723006810 M54.5 Rib pain 109944327 R07.8 1 Periapical abscess 65216 1005 K04.7 Osteoarthritis of hip 23 8544590 M16.9 12085 Master Valentin MD Main Office [address] [place] [address] 52440-778 3 10/25/2015 17:47:30 10/25/2015 19:40:30 Osteoarthritis of hip 451165592 M16.9 Malignant neoplasm of female breast 210069325 C50.919 Low back pain 640666028 M54.5 Periapical abscess 76315 1005 K04.7 Rib pain 342357372 R07.8 1 [id number] Master Valentin MD Main Office [address] [place] [address] 64533-275 3 01/24/2016 13:06:51 01/24/2016 14:37:01 Osteoarthritis of hip 668374817 M16.9 Malignant neoplasm of female breast 613953235 C50.919 Pre-surger y evaluation 903373212 Z01.818 50246 Master Valentin MD Main Office [address] [place] [address] 54635-621 3 03/28/2016 13:24:26 03/28/2016 15:21:21 Osteoarthritis of hip 636614405 M16.9 Malignant neoplasm of female breast 787875557 C50.919 Menopausal symptom 06562 002 N95.1 Low back pain 594377795 M54.5 50223 Master Valentin MD Main Office [address] [place] [address] 40136-979 3 06/27/2016 13:30:14 06/27/2016 14:46:39 Upper respiratory infection 60076453 J06.9 Osteoarthritis of hip 23 2291898 M16.9 Malignant neoplasm of female breast 070641175 C50.919 Menopausal symptom 77900 002 N95.1 Low back pain 117160064 M54.5 03259 Master Valentin MD Main Office [address] [place] [address] 90723-792 3 09/17/2016 14:34:55 09/17/2016 16:00:13 Nasal congestion 12898022 R09.81 Dysuria 44446040 R30.0 Malignant neoplasm of female breast 942555221 C50.919 Osteoarthritis of hip 23 9206769 M16.9 Menopausal symptom 94545 002 N95.1 Low back pain 816481734 M54.5 47154 Master Valentin MD Main Office [address] [place] [address] 52864-344 3 12/26/2016 15:46:16 12/26/2016 17:18:53 Nasal congestion 91125177 R09.81 Malignant neoplasm of female breast 713260416 C50.919 Osteoarthritis of hip 23 4388795 M16.9 Menopausal symptom 84298 002 N95.1 Low back pain 109824494 M54.5 Knee pain 75103477 M25.5 69 [id number] Master Valentin MD Main Office [address] [place] [address] 60666-116 3 03/27/2017 15:50:28 03/27/2017 17:42:56 Malignant neoplasm of female breast 293559563 C50.919 Nasal congestion 8676314 0 R09.81 Osteoarthritis of hip 23 4909685 M16.9 Menopausal symptom 10350 002 N95.1 Low back pain 014018296 M54.5 Knee pain 48915446 M25.5 69 63557 Master Valentin MD Main Office [address] [place] [address] 66534-242 3 06/19/2017 14:19:16 06/19/2017 15:47:43 Malignant neoplasm of female breast 289918181 C50.919 Nasal congestion 4870391 0 R09.81 Osteoarthritis of hip 23 0705206 M16.9 Menopausal symptom 27509 002 N95.1 Low back pain 117795260 M54.5 Knee pain 96397071 M25.5 69 50837 Master Valentin MD Main Office [address] [place] [address] 29783-450 3 11/03/2017 14:52:51 11/03/2017 16:28:27 Malignant neoplasm of female breast 852559032 C50.919 Nasal congestion 6566693 0 R09.81 Osteoarthritis of hip 23 4485652 M16.9 Menopausal symptom 29357 002 N95.1 Low back pain 637978740 M54.5 Knee pain 53599196 M25.5 69 Intertrigo 78870046 L30. 4 Dry eyes 199474258 H04.1 29 55452 Master Valentin MD Main Office [address] [place] [address] 31488-779 3 03/06/2018 13:55:44 03/06/2018 14:53:17 Malignant neoplasm of female breast 088100984 C50.919 Nasal congestion 2846612 0 R09.81 Osteoarthritis of hip 23 8316181 M16.9 Menopausal symptom 25629 002 N95.1 Low back pain 921560839 M54.5 Knee pain 00962254 M25.5 69 Intertrigo 87185200 L30. 4 Dry eyes 591740767 H04.1 29 Glaucoma 98311012 H40.9 Abnormal gait 70673965 R 26.9 History of total hip arthroplasty 3936726562 06 Z96.649 Acquired genu valgum 520 75028 M21.069 46257 Master Valentin MD Main Office [address] [place] [address] 28806-829 3 06/26/2018 14:04:31 06/26/2018 15:56:24 Malignant neoplasm of female breast 284214523 C50.919 Nasal congestion 0675666 0 R09.81 Osteoarthritis of hip 23 9408585 M16.9 Menopausal symptom 45050 002 N95.1 Low back pain 042802839 M54.5 Knee pain 01597885 M25.5 69 Intertrigo 50032487 L30. 4 Dry eyes 490793709 H04.1 29 Glaucoma 85701916 H40.9 Abnormal gait 12766019 R 26.9 History of total hip arthroplasty 8639627036 06 Z96.649 Acquired genu valgum 520 58404 M21.069 Adjustment disorder 1722 6007 F43.20 [id number] Master Valentin MD Main Office [address] [place] [address] 3 10/21/2018 13:02:32 10/21/2018 14:04:00 Malignant neoplasm of female breast 188214021 C50.919 Nasal congestion 3497954 0 R09.81 Osteoarthritis of hip 23 8707482 M16.9 Menopausal symptom 98409 002 N95.1 Low back pain 228730149 M54.5 Knee pain 75328666 M25.5 69 Intertrigo 34280957 L30. 4 Dry eyes 764750670 H04.1 29 Glaucoma 15706067 H40.9 Abnormal gait 71278708 R 26.9 History of total hip arthroplasty 7907401342 06 Z96.649 Acquired genu valgum 520 12231 M21.069 Screening for malignant neoplasm of colon 403595280 Z12.11 [id number] Master Valentin MD Main Office [address] [place] [address] 3 01/19/2019 14:31:06 01/19/2019 16:07:05 Malignant neoplasm of female breast 799304799 C50.919 Nasal congestion 0882276 0 R09.81 Osteoarthritis of hip 23 5608199 M16.9 Menopausal symptom 95424 002 N95.1 Low back pain 948454845 M54.5 Knee pain 92767374 M25.5 69 Intertrigo 55806241 L30. 4 Dry eyes 293841453 H04.1 29 Glaucoma 45962320 H40.9 Abnormal gait 86813911 R 26.9 History of total hip arthroplasty 3856294456 06 Z96.649 Acquired genu valgum 520 34374 M21.069 Adjustment disorder 1722 6007 F43.20 [id number] Master Valentin MD Main Office [address] [place] [address] 01146-232 3 04/20/2019 14:28:45 04/20/2019 15:40:17 Malignant neoplasm of female breast 388382968 C50.919 Nasal congestion 2659626 0 R09.81 Osteoarthritis of hip 23 4573106 M16.9 Menopausal symptom 06718 002 N95.1 Low back pain 678353717 M54.5 Knee pain 43711759 M25.5 69 Intertrigo 98717652 L30. 4 Dry eyes 975108898 H04.1 29 Glaucoma 52689911 H40.9 Abnormal gait 29656238 R 26.9 History of total hip arthroplasty 9744056379 06 Z96.649 Acquired genu valgum 520 17478 M21.069 Adjustment disorder 1722 6007 F43.20 405803 Master Valentin MD Main Office [address] [place] [address] 3 08/09/2019 10:20:02 08/09/2019 11:48:56 Malignant neoplasm of female breast 108603685 C50.919 Nasal congestion 9306928 0 R09.81 Osteoarthritis of hip 23 2210035 M16.9 Menopausal symptom 51295 002 N95.1 Low back pain 108666401 M54.5 Knee pain 36936431 M25.5 69 Intertrigo 83879760 L30. 4 Dry eyes 067168158 H04.1 29 Glaucoma 69599690 H40.9 Abnormal gait 06150817 R 26.9 History of total hip arthroplasty 6539492248 06 Z96.649 Acquired genu valgum 520 74149 M21.069 Adjustment disorder 1722 6007 F43.20 Contact dermatitis 57541 004 L25.9 Carcinomat osis of peritoneal cavity 574638604 C78.6 [id number] Master Valentin MD Main Office [address] [place] [address] 23829-834 3 09/23/2019 14:44:18 09/23/2019 16:53:16 Malignant neoplasm of female breast 843188939 C50.919 Nasal congestion 8380786 0 R09.81 Osteoarthritis of hip 23 7285579 M16.9 Menopausal symptom 53018 002 N95.1 Low back pain 059654532 M54.5 Knee pain 25791021 M25.5 69 Intertrigo 04667001 L30. 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 99976329 C78.6 [id number] Master Valentin MD Main Office [address] [place] [address] 28879-125 3 02/15/2020 14:33:41 02/15/2020 15:52:16 Adjustment disorder 27219720 F43.20 Malignant neoplasm of female breast 083647001 C50.919 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 08396424 C78.6 Eczema 22789006 L30.9 167889 Master Valentin MD Main Office [address] [place] [address] 55002-389 3 05/17/2020 16:05:18 05/17/2020 16:45:45 Adjustment disorder 33054117 F43.20 Malignant neoplasm of female breast 285151216 C50.919 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 22388479 C78.6 Eczema 76247710 L30.9 Insomnia 784911092 G47.0 0 200738 Master Valentin MD Main Office [address] [place] [address] 83158-113 3 06/20/2020 13:09:27 06/20/2020 14:08:20 Menopause present 964605859 N95.1 Personal h istory of primary malignant neoplasm of breast 748391339 Z85.3 [id number] Master Valentin MD Main Office [address] [place] [address] 3 08/16/2020 14:57:14 08/16/2020 16:18:39 Menopause present 816636216 N95.1 Personal h istory of primary malignant neoplasm of breast 219792201 Z85.3 Adjustment disorder 1722 6007 F43.20 Malignant neoplasm of female breast 028891974 C50.919 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 80432646 C78.6 Eczema 84204916 L30.9 Insomnia 019557151 G47.0 0 [id number] Master Valentin MD Main Office [address] [place] [address] 3 11/13/2020 15:36:29 11/13/2020 17:09:50 Menopause present 868814341 N95.1 Personal h istory of primary malignant neoplasm of breast 834017613 Z85.3 Adjustment disorder 1722 6007 F43.20 Malignant neoplasm of female breast 212077939 C50.919 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 52161028 C78.6 Eczema 23750012 L30.9 Insomnia 704952010 G47.0 0 Osteoarthr itis of knee 187786013 M17.9 [id number] Master Valentin MD Main Office [address] [place] [address] 3 12/20/2020 17:30:01 12/20/2020 19:34:11 Impetiginized atopic dermatitis 528506737 L01.1 [id number] Master Valentin MD Main Office [address] [place] [address] 03694-382 3 02/14/2021 15:54:10 02/14/2021 17:06:22 Photosensitivity 24571601 L56.8 Menopause present 284809 006 N95.1 Personal h istory of primary malignant neoplasm of breast 554101752 Z85.3 Adjustment disorder 1722 6007 F43.20 Malignant neoplasm of female breast 188507305 C50.919 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 77343139 C78.6 Eczema 02546281 L30.9 Insomnia 603402125 G47.0 0 Osteoarthr itis of knee 035923805 M17.9 169357 Master Valentin MD Main Office [address] [place] [address] 62546-675 3 05/16/2021 14:39:30 05/16/2021 16:17:54 Hyperglycemia 98591507 R73.9 Photosensitivity 8150346 6 L56.8 Menopause present 309754 006 N95.1 Personal h istory of primary malignant neoplasm of breast 009695882 Z85.3 Adjustment disorder 1722 6007 F43.20 Malignant neoplasm of female breast 924104992 C50.919 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 23146692 C78.6 Eczema 81653022 L30.9 Insomnia 553617656 G47.0 0 Osteoarthr itis of knee 882829009 M17.9 Idiopathic peripheral neuropathy 33357097 G60.9 [id number] Master Valentin MD Main Office [address] [place] [address] 26476-723 3 08/14/2021 13:32:55 08/14/2021 15:13:28 Hyperglycemia 53007341 R73.9 Malignant neoplasm of female breast 950490245 C50.919 Menopausal symptom 19281 002 N95.1 Osteoarthritis of hip 23 2919023 M16.9 Personal h istory of primary malignant neoplasm of breast 684648082 Z85.3 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 09159395 C78.6 639376 Master Valentin MD Main Office [address] [place] [address] 04962-938 3 11/05/2021 16:41:58 11/05/2021 18:12:28 Hyperglycemia 74575987 R73.9 Malignant neoplasm of female breast 432435877 C50.919 Menopausal symptom 24982 002 N95.1 Osteoarthritis of hip 23 4937650 M16.9 Personal h istory of primary malignant neoplasm of breast 038447315 Z85.3 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 35793635 C78.6 [id number] Master Valentin MD Main Office [address] [place] [address] 31673-021 3 03/07/2022 14:59:03 03/07/2022 16:59:35 Hyperglycemia 77132756 R73.9 Malignant neoplasm of female breast 816339656 C50.919 Menopausal symptom 43248 002 N95.1 Osteoarthritis of hip 23 9149767 M16.9 Personal h istory of primary malignant neoplasm of breast 589438206 Z85.3 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 23209256 C78.6 Fatigue 18744867 R53.83 [id number] Master Valentin MD Main Office [address] [place] [address] 73090-435 3 06/17/2022 16:42:06 06/17/2022 18:46:50 Hyperglycemia 85074973 R73.9 Malignant neoplasm of female breast 690009431 C50.919 Menopausal symptom 72733 002 N95.1 Osteoarthritis of hip 23 0390981 M16.9 Personal h istory of primary malignant neoplasm of breast 125702378 Z85.3 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 32649910 C78.6 Fatigue 66972621 R53.83 [id number] Master Valentin MD Main Office [address] [place] [address] 37393-691 3 09/16/2022 15:31:41 09/16/2022 17:36:13 Fatigue 98346742 R53.83 Hyperglycemia 00178202 R 73.9 Malignant neoplasm of female breast 304334285 C50.919 Menopausal symptom 45707 002 N95.1 Osteoarthritis of hip 23 1427506 M16.9 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 72739582 C78.6 612386 Master Valentin MD Main Office [address] [place] [address] 74983-002 3 12/23/2022 15:32:52 12/23/2022 16:59:44 Fatigue 94589172 R53.83 Hyperglycemia 04797643 R 73.9 Malignant neoplasm of female breast 343943651 C50.919 Menopausal symptom 39604 002 N95.1 Osteoarthritis of hip 23 7580190 M16.9 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 10192405 C78.6 389772 Master Valentin MD Main Office [address] [place] [address] 57539-061 3 03/24/2023 15:30:14 03/24/2023 17:12:17 Left side sciatica 5686916517 57969 M54.32 Fatigue 28709527 R53.83 Hyperglycemia 18079807 R 73.9 Malignant neoplasm of female breast 404595237 C50.919 Menopausal symptom 01117 002 N95.1 Osteoarthritis of hip 23 0609956 M16.9 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 32824501 C78.6 [id number] Master Valentin MD Main Office [address] [place] [address] 33828-010 3 09/22/2023 16:09:11 09/22/2023 18:13:22 Fatigue 99437467 R53.83 Hyperglycemia 49501511 R 73.9 Malignant neoplasm of female breast 572561880 C50.919 Menopausal symptom 90669 002 N95.1 Osteoarthritis of hip 23 4654490 M16.9 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 74307526 C78.6 Antibiotic prophylaxis indicated 903734837 Z78.9 [id number] Master Valentin MD Main Office [address] [place] [address] 01478-828 3 03/25/2024 14:00:09 03/25/2024 15:53:31 Malignant neoplasm of female breast 427112223 C50.919 Prolonged grief disorder 781636674 F43.81 Hearing loss 04219364 H9 1.93 [id number] Master Valentin MD Main Office [address] [place] [address] 74632-994 3 06/24/2024 13:35:59 06/24/2024 15:34:21 Fatigue 72925718 R53.83 Hyperglycemia 66893102 R 73.9 Malignant neoplasm of female breast 871729964 C50.919 Menopausal symptom 52317 002 N95.1 Osteoarthritis of hip 23 4102522 M16.9 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 32649552 C78.6 Antibiotic prophylaxis indicated 722661191 Z78.9 116350 Master Valentin MD Main Office [address] [place] [address] 3 10/29/2024 09:24:36 10/29/2024 11:13:16 Fatigue 17166547 R53.83 Hyperglycemia 49162998 R 73.9 Malignant neoplasm of female breast 774585038 C50.919 Menopausal symptom 02174 002 N95.1 Osteoarthritis of hip 23 7270163 M16.9 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 52737650 C78.6 Antibiotic prophylaxis indicated 378006154 Z78.9 [id number] Master Valentin MD Main Office [address] [place] [address] 3 03/01/2025 13:59:44 03/01/2025 16:10:01 Fatigue 95182556 R53.83 Hyperglycemia 21202137 R 73.9 Malignant neoplasm of female breast 408190977 C50.919 Menopausal symptom 14498 002 N95.1 Osteoarthritis of hip 23 8181440 M16.9 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 75797430 C78.6 Antibiotic prophylaxis indicated 934452274 Z78.9 Health Concerns Section Related Observation LastModified by Organization Detai ls LastModified Time None Recorded Concern Status LastModified by Organization Details LastModified Time None Recorded Advance Directives Directive Y: Payers Insurance Date Sequence Insurance Name Policy Number Policy Tucker Covered Member ID Tucker Member ID Guarantor Name 01/21/2019 2 *SELF PAY* Charisma mayo Diel Juanita 06/18/2024 1 [facility] (MEDICARE REPLACEMENT/A DVANTAGE - PPO) [id number] Chula Diel Juanita [id number] Chula Diel Juanita 01/21/2019 3 MEDICARE B-[place]: [facility] Chula Juanita [id number] Chula Diel Juanita 09/16/2022 1 [facility] (MEDICARE REPLACEMENT/A DVANTAGE - PPO) [id number] Chula Juanita [id number] Chula Diel Juanita 06/18/2024 1 *SELF PAY* Charisma mayo Diel Juanita 10/24/2015 1 *SELF PAY* Charisma mayo [facility] Juanita Notes Date Note Type Note Provider Name and Address Organization Details Recorded Time 4 text/html Follow upWeight up - has found it easier to digest bread since taking OrthoDigest Zyme, and therefore eating more.Needs RF Amoxicillin RF.More tired. Purely Integrative multivitamin has helped.Cancer is stable, and she continues to see Kaila Miller MD.L sciatica better >>Michelle Rojo PT.L 2016 hip replacement remains in good shape.Takes long to come back into her body in the mornings.Mood mostly even. Master Valentin MD [address] [place], [address], [facility] 09/22/2023 17:48:13 4 text/html Follow up.She was sick around March 01. Sperry dizzy and weak and lacked appetite for about two days. Thinks it was from the full sutton.Saw Kaila Miller. She remains on Ibrance plus Exemestane, with good tolerance. There was a concern about low platelets, but that self corrected.Is generally sensitive to weather influences.No-see-um bites.Sl. sneezing, itchy eyes, stuffy nose.Very tired since February. Has exercised less as a result.Mood sad - more resigned to not seeing her sons again who have stopped contact.Feels she is losing hearing, particularly behind her, but smell is more acute. Master Valentin MD [address] [place], [address], [facility] 03/25/2024 15:41:12 4 text/html Follow upStuffy nose.Breathes well at night.Stuffy in morning on waking. 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 Moura at [facility]. Still is somewhat stiff. Not much pain in it. Her mother 2019 A 94 old age. Father 1981 A 62 of pancreatic cancer. She feels their presence. She saw Dr. Renny Harrington for ENT consultation with mild downsloping upper frequency hearing loss, not yet needing hearing aids. Sleeps mostly well. Master Valentin MD [address] [place], [address], [facility] 06/24/2024 15:28:18 5 text/html Follow up. She continues on her exemestane and Ibrance and has been free of recurrence since 2020. Her Oncologist Dr. Kaila Miller will be retiring.Mobility is reducing and she no longer going up stairs in her house. She no longer cooks.More meat in her diet.Silver Sneakers.Some activity daily.Aakash Mcgill DC recommended mushroom supplements which are helping her low energy. Drenamin, which helped in the past, is no longer tolerated New PET/CT 10/26/2024Significant PET/CT findings:There are changes of right mastectomy. There is no FDG avidlymphadenopathy or metastatic disease.Incidental PET findings:No significant incidental PET findings.Incidental CT findings:There are atherosclerotic calcifications of the coronary arteries.There is no FDG avid mediastinal or hilar lymphadenopathy.Reticula tion the periphery of the right upper and middle lobes arelikely secondary to prior radiation. A trace right effusion is similarto prior. There is colonic diverticulosis. The bladder isdecompressed. There is no pelvic or retroperitoneal lymphadenopathy.There is a left total hip arthroplasty. There are degenerative changesthroughout the spine.IMPRESSION:No significant interval change. No evidence of metastatic disease Master Valentin MD [address] [place], [address], [facility] 10/29/2024 10:43:33 5 text/html Follow up.Sad times we live in.But can rise above it.Turned 80.Uses Walking stick now which she carries.She typically does not have back pain. New oncologist Dr. Vicente in [facility] is her new oncologist, Dr. Kaila Miller having retired. He is part of the [employer] system. Master Valentni MD [address] [place], [address], [facility] 03/01/2025 15:32:58 OBGyn Episode No OBEpisode recorded.
[2025-05-17 17:56] LABS: Anion Gap 5 mmol/L (4-12); Blood Urea Nitrogen 19 mg/dL (7-17); Calcium 9.7 mg/dL (8.4-10.2); Carbon Dioxide 28 mmol/L (22-30); Chloride 104 mmol/L (98-107); Estimated Glomerular Filt Rate > 60; Glucose 133 mg/dL (65-110); Potassium 4.5 mmol/L (3.4-5.0); Sodium 137 mmol/L (137-145)
== END 2025-05-17 15:09 | disposition home or self-care (01) ==
LOC: ANHLAB 15:09
PROVIDERS: Visit Provider Internal Medicine Hematology & Oncology
DX: C50.011 Malignant neoplasm of nipple and areola, right female breast (principal)
CPT/HCPCS: 36415; 80048; 85025; 86300

== ENCOUNTER 2025-06-28 13:56 | Outpatient (CLI) | payer MEDICARE, SELFPAY ==
[2025-06-28 14:11] LABS: Hematocrit 37.7 % (37.0-47.0); Hemoglobin 13.1 g/dL (12.0-15.0); Immature Granulocyte Percent A 0.3 % (0-0.5); Lymphocytes Absolute Auto 0.72 K/mm3 (0.9-3.2); Mean Corpuscular HGB Conc 34.7 g/dl (32-36); Mean Corpuscular Hemoglobin 37.0 pg (26-34); Mean Corpuscular Volume 106.5 fl (80-100); Nucleated Red Blood Cells Absolute Auto 0.000 K/mm3 (0.0-0.012); Nucleated Red Blood Cells Perc 0.0 % (0.0-0.2); Platelet Count Result 188 k/mm3 (150-375); Red Blood Count 3.54 M/mm3 (4.2-5.4); White Blood Count 3.0 K/mm3 (4.5-10.0)
--- OUTSIDE RECORDS SUMMARY | 2025-06-28 16:15 | XMS_ITS | Encounter Summary ---
Author Organization [facility] Address [address] [place] [address] Care Team Providers Care Patcher Wood Welder Name Role Phone Master Valentin MD Primary Care Provider [phone]- [phone] Encounter Details Date Type Department Care Team (Latest Contact Info) Description 10/22/2008 Outpatient Historical [facility] Radiation Oncology [place] [address] [place] [address] Marcie Berman MD NO ADDRESS ON FILE Master Valentin MD [address] [place] [address] Malignant Neoplasm of Upper-Outer Quadrant of Female Breast (CMS/HCC) Social History Tobacco Use Types Packs/Day Years Used Date Smoking Tobacco: Never Assessed Comments Unknown Sex and Gender Information Value Date Recorded Sex Assigned at Not on file Legal Sex Female 4:22 AM [employer]OUNDATION [employer] Gender Identity Not on file Sexual Orientation Not on file documented as of this encounter Plan of Treatment Upcoming Encounters Date Type Department Care Team (Late st Contact Info) Description 06/30/2025 2:30 PM [employer] OPER[employer] Office Visit [facility] Oncology and Hematology - [place] [address] [facility] [address] [place] [address] Sinan Vicente MD [address] [facility] [address] [place] [address] documented as of this encounter Visit Diagnoses Diagnosis Malignant neoplasm of upper-outer quadrant of female breast (CMS/HCC) Malignant neoplasm of upper-outer quadrant of female breast documented in this encounter Care Teams Patcher Wood Welder Relationship Specialty Start Date End Date Master Valentin MD [address] [place] [address] PCP - General 05/23/15 documented as of this encounter
--- OUTSIDE RECORDS SUMMARY | 2025-06-28 16:15 | XMS_ITS | Encounter Summary ---
Author Organization [facility] Address [address] [place] [address] Care Team Providers Care Diamond Cutter Name Role Phone Master Valentin MD Primary Care Provider +- [phone] Encounter Details Date Type Department Care Team (Latest Contact Info) Description 07/31/2001 Outpatient Historical [facility] IMG-LAB [facility] Master Valentin MD [address] [place] [address] SCREENING MAMM-MAILG NEOPL-OTHER (Primary Dx) Social History Tobacco Use Types Packs/Day Years Used Date Smoking Tobacco: Never Assessed Comments Unknown Sex and Gender Information Value Date Recorded Sex Assigned at Not on file Legal Sex Female 4:22 AM EXHIBITION SPECIALIST Gender Identity Not on file Sexual Orientation Not on file documented as of this encounter Plan of Treatment Upcoming Encounters Date Type Department Care Team (Late st Contact Info) Description 06/30/2025 2:30 PM EXHIBITION SPECIALIST Office Visit [facility] Oncology and Hematology - Rui [address] [facility] [address] [place] [address] Sinan Vicente MD [address] [facility] [address] [place] [address] documented as of this encounter Visit Diagnoses Diagnosis Other screening mammogram- Primary documented in this encounter Care Teams Diamond Cutter Relationship Specialty Start Date End Date Master Valentin MD [address] [place] [address] PCP - General 05/23/15 documented as of this encounter
--- OUTSIDE RECORDS SUMMARY | 2025-06-28 16:15 | XMS_ITS | Encounter Summary ---
Author Organization [facility] Address 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) Social History Tobacco Use Types Packs/Day Years Used Date Smoking Tobacco: Never Assessed Comments Unknown Sex and Gender Information Value Date Recorded Sex Assigned at Not on file Legal Sex Female 4:22 AM VISUAL MERCHANDISING SPECIALIST Gender Identity Not on file Sexual Orientation Not on file documented as of this encounter Plan of Treatment Upcoming Encounters Date Type Department Care Team (Late st Contact Info) Description 06/30/2025 2:30 PM VISUAL MERCHANDISING SPECIALIST Office Visit [facility] Oncology and Hematology - Rui [address] [facility] [address] [place] [address] Sinan Vicente MD [address] [facility] [address] [place] [address] documented as of this encounter Visit Diagnoses Diagnosis Malignant neoplasm of upper-outer quadrant of female breast (CMS/HCC) Malignant neoplasm of upper-outer quadrant of female breast documented in this encounter Care Teams Customer Solutions Coordinator Relationship Specialty Start Date End Date Master Valentin MD [address] [place] [address] PCP - General 05/23/15 documented as of this encounter
--- OUTSIDE RECORDS SUMMARY | 2025-06-28 16:15 | XMS_ITS | Encounter Summary ---
Author Organization [facility] Address 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) Social History Tobacco Use Types Packs/Day Years Used Date Smoking Tobacco: Never Assessed Comments Unknown Sex and Gender Information Value Date Recorded Sex Assigned at Not on file Legal Sex Female 4:22 AM FILAMENT WELDER Gender Identity Not on file Sexual Orientation Not on file documented as of this encounter Plan of Treatment Upcoming Encounters Date Type Department Care Team (Late st Contact Info) Description 06/30/2025 2:30 PM FILAMENT WELDER Office Visit [facility] Oncology and Hematology - Rui [address] [facility] [address] [place] [address] Sinan Vicente MD [address] [facility] [address] [place] [address] documented as of this encounter Visit Diagnoses Diagnosis Malignant neoplasm of upper-outer quadrant of female breast (CMS/HCC) Malignant neoplasm of upper-outer quadrant of female breast documented in this encounter Care Teams Wire Weaver Relationship Specialty Start Date End Date Master Valentin MD [address] [place] [address] PCP - General 05/23/15 documented as of this encounter
--- OUTSIDE RECORDS SUMMARY | 2025-06-28 16:15 | XMS_ITS | Encounter Summary ---
Author Organization [facility] Address [address] [facility] Attn: Epic Prelude ADT LESLY HERNANDEZ [address] Care Team Providers Care Family Lawyer Name Role Phone Master Valentin MD Primary Care Provider +1- [phone] Encounter Details Date Type Department Care Team (Late Contact Info) Description 11/09/1998 Outpatient Historical Social History Tobacco Use Types Packs/Day Years Used Date Smoking Tobacco: Never Assessed Comments Unknown Sex and Gender Information Value Date Recorded Sex Assigned at Not on file Legal Sex Female 4:22 AM PACKAGING ENGINEER Gender Identity Not on file Sexual Orientation Not on file documented as of this encounter Plan of Treatment Upcoming Encounters Date Type Department Care Team (Late st Contact Info) Description 06/30/2025 2:30 PM PACKAGING ENGINEER Office Visit [facility] Oncology and Hematology - Rui [address] [facility] [address] [place] [address] Sinan Vicente MD [address] [facility] [address] [place] [address] documented as of this encounter Visit Diagnoses Not on filedocumented in this encounter Care Teams Family Lawyer Relationship Specialty Start Date End Date Master Valentin MD [address] [place] [address] PCP - General 05/23/15 documented as of this encounter
--- OUTSIDE RECORDS SUMMARY | 2025-06-28 16:15 | XMS_ITS | Encounter Summary ---
Author Organization [facility] Address [address] [place] [address] Care Team Providers Care Litigation Claim Representative Name Role Phone Master Valentin MD Primary Care Provider +- [phone] Encounter Details Date Type Department Care Team (Latest Contact Info) Description 03/11/2000 Outpatient Historical HIS X/RAY-LAB [facility] Master Valentin MD [address] [place] [address] Other screening mammogram (Primary Dx) Social History Tobacco Use Types Packs/Day Years Used Date Smoking Tobacco: Never Assessed Comments Unknown Sex and Gender Information Value Date Recorded Sex Assigned at Not on file Legal Sex Female 4:22 AM CASE PREPARER AND LINER Gender Identity Not on file Sexual Orientation Not on file documented as of this encounter Plan of Treatment Upcoming Encounters Date Type Department Care Team (Late st Contact Info) Description 06/30/2025 2:30 PM CASE PREPARER AND LINER Office Visit [facility] Oncology and Hematology - Rui [address] [facility] [address] [place] [address] Sinan Vicente MD [address] [facility] [address] [place] [address] documented as of this encounter Visit Diagnoses Diagnosis Other screening mammogram- Primary documented in this encounter Care Teams Litigation Claim Representative Relationship Specialty Start Date End Date Master Valentin MD [address] [place] [address] PCP - General 05/23/15 documented as of this encounter
--- OUTSIDE RECORDS SUMMARY | 2025-06-28 16:16 | XMS_ITS | Clinical Summary ---
Author Organization [facility] Address [address] [place] [address] Care Team Providers Care Cheese Tester Name Role Phone Unavailable Primary Care Provider [...]
--- OUTSIDE RECORDS SUMMARY | 2025-06-28 16:16 | XMS_ITS ---
Author Organization [facility] [address] Address [address] [place] [address] Care Team Providers Care Log Raft Worker Name Role Phone Master Valentin MD Primary Care Provider +1- [phone] Active Problems Patient Care Coordination No te Formatting of this note migh t be different from the original. 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
--- OUTSIDE RECORDS SUMMARY | 2025-06-28 16:16 | XMS_ITS | Clinical Summary ---
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 Other lymphedema 03/01/2013 Malignant neoplasm of female breast 02/09/2009 Overview (03/01/2013): 2009;Locally advanced R breast cancer, ER+,invasive lobular Trial of neoadjuvent Femara Mastectomy/LN, [id number] III Continued Femara: post-op RT Chronic lymphedema Breast cancer Encounters Date Type Department Care Team Description 05/31/2025 External Device Data STL ABSTRACTION Provider, Abstract 05/25/2025 Abstract [facility] Oncology and Hematology [facility] [address] [place] [address] Sinan Vicente MD 05/20/2025 9:30 AM SOCIAL WORKER AIDE Office Visit [facility] Oncology [facility] Hematology [facility] [address] [place] [address] Sinan Vicente MD 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, right (CMS/HCC) (Primary Dx) 05/20/2025 Orders Only [facility] Oncology and Hematology [facility] [address] [place] [address] Sinan Vicente MD 04/26/2025 External Device Data STL ABSTRACTION Provider, Abstract 04/19/2025 External Device Data STL ABSTRACTION Provider, Abstract 04/07/2025 11:00 AM CDT Office Visit [facility] Oncology and Hematology [facility] Marcy [address] [place] [address] Sinan Vicente MD 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, right (CMS/HCC) (Primary Dx) 04/05/2025 Orders Only [facility] Oncology and Hematology - Rui Marcy [address] [place] [address] Sinan Vicente MD 04/04/2025 Orders Only [facility] Oncology and Hematology - Rui [address]cy [address] [place] [address] Sinan Vicente MD 03/29/2025 External Device Data [...] Years Used Date Smoking Tobacco: Former Cigarettes 19 0 07/14/1970 - 07/14/1989 Smokeless Tobacco: Never Comments:1989 Alcohol Use Standard Drinks/Week Comments No 0 (1 standard drink = 0.6 oz pur e alcohol) Comments No Sex and Gender Information Value Date Recorded Sex Assigned at Not on file Legal Sex Female 4:22 AM SOCIAL WORKER AIDE Gender Identity Not on file Sexual Orientation Not on file Occupation Industry Job Start Date Job End Date Not on file Not on file Not on file Not on file Last Filed Vital Signs Vital Sign Reading Time Taken Comments Blood Pressure 144/94 05/20/2025 10:04 AM SOCIAL WORKER AIDE Pulse 95 05/20/2025 9:48 AM SOCIAL WORKER AIDE Temperature 36.1 C (96.9 F) 05/20/2025 9:48 AM SOCIAL WORKER AIDE Respiratory Rate 16 05/20/2025 9:48 AM SOCIAL WORKER AIDE Oxygen Saturation 97% 05/20/2025 9:48 AM SOCIAL WORKER AIDE Inhaled Oxygen Concentration - - Weight 82.7 kg (182 lb 6.4 oz) 05/20/2025 9:48 A M SOCIAL WORKER AIDE Height 162.6 cm (5' 4) 02/22/2025 11:16 AM CDT Body Mass Index 31.31 02/22/2025 11:16 AM CDT Plan of Treatment Upcoming Encounters Date Type Department Care Team (Late st Contact Info) Description 06/30/2025 2:30 PM SOCIAL WORKER AIDE Office Visit [facility] Oncology and Hematology - Rui [address] [place] [address] Sinan Vicente MD [address] [facility] [address] [place] [address] Health Maintenance Due Date Last Done Comments DTAP/TDAP/TD VACCINES (1 - Tdap) 02/22/1964 PNEUMOCOCCAL VACCINE 50+ YEA RS (1 of 2 - PCV) 02/22/1964 ZOSTER VACCINE (1 of 2) 02/22/1964 RSV VACCINE (60+ or ) (1 - 1-dose 75+ series) 02/22/2020 [place] ([place]) Preventative Visit/Annual Wellness Visit 07/14/2024 INFLUENZA VACCINE (#1) 2025 COVID-19 Vaccine (2024-2 6 season) 2025 04/23/2022, 10/29/2021, 07/02/2021, Additional history exists OSTEOPOROSIS SCREENING 07/22/2027 , 03/02/2014, 02/24/2012, Additional history exists Procedures Procedure Name Priority Date/Time Associated Diagnosis Comments CHG CA 15 3 Routine 05/17/2025 12:01 PM SOCIAL WORKER AIDE BASIC METABOLIC PANEL Routine 05/17/2025 8:01 AM SOCIAL WORKER AIDE CBC WITH AUTODIFFERENTIAL Routine 05/17/2025 7:48 AM SOCIAL WORKER AIDE CANCER ANTIGEN 15-3 Routine 04/05/2025 2 :06 PM CDT 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 Sinan Vicente MD CHG - LABORATORY Final Result * BASIC METABOLIC PANEL (05/17/2025 8:01 AM SOCIAL WORKER AIDE) Blood us Sinan Vicente MD CHEMISTRY ORDERABLES Final Resu lt * CBC WITH AUTODIFFERENTIAL (05/17/2025 7:48 AM SOCIAL WORKER AIDE) Blood us Sinan Vicente MD HEMATOLOGY ORDERABLES Final Res ult * CANCER ANTIGEN 15-3 (04/05/2025 2:06 PM CDT) CA 15-3 24 <32 U/mL [facility] Comment: This test was performed using the Siemens (Connotate) chemiluminescent method. Values obtained from different assay methods cannot be used interchangeably. CA 15-3 levels, regardless of value, should not be interpreted as absolute evidence of the presence or absence of disease. Test Performed at: [facility] [address] [place] [address] Topher Lang MD Blood 04/05/2025 2:06 PM CDT 04/05/2025 2:06 PM CDT us Sinan Vicente MD CHEMISTRY ORDERABLES Final Resu lt [facility] [phone] [address] * COMPREHENSIVE METABOLIC PANEL (04/01/2025 2:55 PM CDT) Blood us Sinan Vicente MD CHEMISTRY ORDERABLES Final Resu lt * XR DEXA BONE DENSITY AXIAL 1 OR MORE SITES (07/22/2022 9:18 AM SOCIAL WORKER AIDE) Anatomical Region Laterality Modality Digital Radiogra phy 07/22/2022 9:18 AM SOCIAL WORKER AIDE Impressions 07/22/2022 9:30 AM SOCIAL WORKER AIDE IMPRESSION: This is a summary page. Please refer to the complete detailed report found in the Imaging Section of the [facility] EMR. Osteopenia. Lumbar Spine: T-Score: [...] Sweeney MD DICTATION LOCATION: 07/22/2022 9:30 AM SOCIAL WORKER AIDE EXAMINATION: BONE DENSITY STUDY (DXA) DATE: 07/22/2022 9:18 AM HISTORY: 77 years Female. Postmenopausal. Left hip replacement. PROCEDURE: Planar images of the lumbar spine, hip(s) and forearm(s) using a [employer] DEXA scanner for bone mineral density determination [...] lumbar spine, hip(s) and forearm(s) using a [employer] DEXA scanner for bone mineral density determination [...] found in the Imaging Section of the [facility] EMR. Osteopenia. Lumbar Spine: T-Score: [...] Recently Relevant to Health Maintenance Insurance [employer] [facility] RX AETNA Medicare Part D RX [employer] (INTERNAL) [facility] Plans [employer] [facility] Care Teams Crop Grain Or Livestock Farmer Relationship Specialty Start Date End Date Master Valentin MD [address] [place] [address] PCP - General 05/23/15
--- OUTSIDE RECORDS SUMMARY | 2025-06-28 16:16 | XMS_ITS | Encounter Summary ---
Author Organization [facility] Address 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) Social History Tobacco Use Types Packs/Day Years Used Date Smoking Tobacco: Never Assessed Comments Unknown Sex and Gender Information Value Date Recorded Sex Assigned at Not on file Legal Sex Female 4:22 AM NURSING ASSOCIATE Gender Identity Not on file Sexual Orientation Not on file documented as of this encounter Plan of Treatment Upcoming Encounters Date Type Department Care Team (Late st Contact Info) Description 06/30/2025 2:30 PM NURSING ASSOCIATE Office Visit [facility] Oncology and Hematology - Rui [address] [facility] [address] [place] [address] Sinan Vicente MD [address] [facility] [address] [place] [address] documented as of this encounter Visit Diagnoses Diagnosis Malignant neoplasm of upper-outer quadrant of female breast (CMS/HCC) Malignant neoplasm of upper-outer quadrant of female breast documented in this encounter Care Teams Ship Construction Teacher Relationship Specialty Start Date End Date Master Valentin MD [address] [place] [address] PCP - General 05/23/15 documented as of this encounter
--- OUTSIDE RECORDS SUMMARY | 2025-06-28 16:16 | XMS_ITS | Encounter Summary ---
Author Organization [facility] Address 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) Social History Tobacco Use Types Packs/Day Years Used Date Smoking Tobacco: Never Assessed Comments Unknown Sex and Gender Information Value Date Recorded Sex Assigned at Not on file Legal Sex Female 4:22 AM FRONT END ALIGNMENT SPECIALIST Gender Identity Not on file Sexual Orientation Not on file documented as of this encounter Plan of Treatment Upcoming Encounters Date Type Department Care Team (Late st Contact Info) Description 06/30/2025 2:30 PM FRONT END ALIGNMENT SPECIALIST Office Visit [facility] Oncology and Hematology - Rui [address] [facility] [address] [place] [address] Sinan Vicente MD [address] [facility] [address] [place] [address] documented as of this encounter Visit Diagnoses Diagnosis Malignant neoplasm of upper-outer quadrant of female breast (CMS/HCC) Malignant neoplasm of upper-outer quadrant of female breast documented in this encounter Care Teams Archaeology Professor Relationship Specialty Start Date End Date Master Valentin MD [address] [place] [address] PCP - General 05/23/15 documented as of this encounter
--- OUTSIDE RECORDS SUMMARY | 2025-06-28 16:16 | XMS_ITS | Encounter Summary ---
Author Organization [facility] Address [address] [place] [address] Care Team Providers Care Child And Adolescent Psychiatrist Name Role Phone Master Valentin MD Primary Care Provider +1- [phone] Encounter Details Date Type Department Care Team (Latest Contact Info) Description 03/08/2009 Outpatient Historical [facility] Dflt Department Marcie Berman MD [...] file Legal Sex Female 4:22 AM SUPERVISOR OF INSTRUCTION Gender Identity Not on file Sexual Orientation Not on file documented as of this encounter Plan of Treatment Upcoming Encounters Date Type Department Care Team (Late st Contact Info) Description 06/30/2025 2:30 PM SUPERVISOR OF INSTRUCTION Office Visit [facility] Oncology and Hematology - Rui [address] [facility] [address] [place] [address] Sinan Vicente MD [address] [facility] [address] [place] [address] documented as of this encounter Visit Diagnoses Diagnosis Malignant neoplasm of upper-outer quadrant of female breast (CMS/HCC) Malignant neoplasm of upper-outer quadrant of female breast documented in this encounter Care Teams Child And Adolescent Psychiatrist Relationship Specialty Start Date End Date Master Valentin MD [address] [place] [address] PCP - General 05/23/15 documented as of this encounter
--- OUTSIDE RECORDS SUMMARY | 2025-06-28 16:16 | XMS_ITS | Encounter Summary ---
Author Organization [facility] Address [address] [place] [address] Care Team Providers Care Pulpwood Contractor Name Role Phone Master Valentin MD Primary Care Provider +- [phone] Encounter Details Date Type Department Care Team (Latest Contact Info) Description 07/31/2001 Outpatient Historical HIS IMG-LAB [facility] Master Valentin MD [address] [place] [address] FEMALE CLIMACTERIC STATE (Primary Dx) Social History Tobacco Use Types Packs/Day Years Used Date Smoking Tobacco: Never Assessed Comments Unknown Sex and Gender Information Value Date Recorded Sex Assigned at Not on file Legal Sex Female 4:22 AM MEDICAL SUPPORT ASSISTANT Gender Identity Not on file Sexual Orientation Not on file documented as of this encounter Plan of Treatment Upcoming Encounters Date Type Department Care Team (Late st Contact Info) Description 06/30/2025 2:30 PM MEDICAL SUPPORT ASSISTANT Office Visit [facility] Oncology and Hematology - Rui [address] [facility] [address] [place] [address] Sinan Vicente MD [address] [facility] [address] [place] [address] documented as of this encounter Visit Diagnoses Diagnosis Symptomatic menopausal or female climacteric states- Primary documented in this encounter Care Teams Pulpwood Contractor Relationship Specialty Start Date End Date Master Valentin MD [address] [place] [address] PCP - General 05/23/15 documented as of this encounter
--- OUTSIDE RECORDS SUMMARY | 2025-06-28 16:16 | XMS_ITS | Encounter Summary ---
Author Organization [facility] Address [address] [place] [address] Care Team Providers Care Sr. Payroll Processor Name Role Phone Master Valentin MD Primary Care Provider [phone] Encounter Details Date Type Department Care Team (Latest Contact Info) Description 08/12/[address] 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 Oncology and Hematology - [address] [facility] [address] [place] [address] Sinan Vicente MD [address] [facility] [address] [place] [address] documented as of this encounter Visit Diagnoses Diagnosis Malignant neoplasm of upper-outer quadrant of female breast (CMS/HCC) Malignant neoplasm of upper-outer quadrant of female breast documented in this encounter Care Teams Sr. Payroll Processor Relationship Specialty Start Date End Date Master Valentin MD [address] [place] [address] PCP - General 05/23/15 documented as of this encounter
--- OUTSIDE RECORDS SUMMARY | 2025-06-28 16:16 | XMS_ITS | Data Portability ---
Author Organization [facility] - [facility] Address [address] [place] [address] Assessment No assessment recorded. Plan of Treatment Reminders Order Date Submit Date Provider Last Modified By Organization Details Last Modified Time Details Appointments [facility] PATIENT 2024 12:30P Sherlyn Valentin M.D. Not available Not available Not available Lab HbA1c (hemoglo bin A1c), blood 2023 024 [facility], [address], [place], [address], 09/29/2023 08:03:45 lipid panel, serum 2023 024 [facility], [address] [place], [address], 09/29/2023 08:03:46 CMP, serum or plasma 2023 024 [facility], [address], [place], [address], 09/29/2023 08:03:46 CBC w/ auto diff 2023 024 [facility], [address], [place], [address], 09/29/2023 08:03:46 Referral otolaryn gologist referral 2023 024 [facility] Renny Harrington [facility], [address], [address], [place], [address], 04/01/2024 07:32:15 Procedures None recorded . Surgeries None recorded . Imaging None recorded . Medication Orders compound ed medicati on 2024 025 [facility], [address] [facility], [place], [address], 03/01/2025 15:33:20 amoxicil colby 500 mg capsule 2024 025 [facility], [address], [place], [place], [id number], 03/01/2025 15:32:13 compound ed medicati on 2024 025 [facility], [address] [facility], [place], [address], 10/29/2024 10:42:05 amoxicil colby 500 mg capsule 2024 025 [facility], [address], [place], [place], [id number], 10/29/2024 10:41:01 compound ed medicati on 2023 024 [facility], [address] [facility], [place], [address], 03/01/2025 14:12:18 compound ed medicati on 2023 024 [facility], [address] [facility], [place], [address], 03/01/2025 14:12:26 Natrum Muriatic um 2023 024 [facility], [address], [place], [place], [id number], 03/25/2024 15:40:58 compound ed medicati on 2023 024 [facility] Martin, [address] [facility] , [place], [place], [id number], 03/25/2024 14:13:33 amoxicil colby 500 mg capsule 2023 024 [facility], [address] [facility] , [place], [place], [id number], 09/22/2023 17:47:44 Patient TargetsNo targets recorded. Patient Instructions Encounter Date Encounter Id Patient Instructions Last Modified By Organization Details Last Modified Time 03/25/2024 [id number] hearing loss: care instructions [email or web address] Not available 03/25/2024 15:40:57 Renny Harrington MD Ear Nose Throat specialist [address] [place] [address] [address] [place] [id number] [email or web address] Not available 03/25/2024 15:40:50 Reason for Referral [employer] Referral fo r Hearing loss Referring Physician: Master Valentin, Family Medicine, Encounter Date: 03/25/2024 Results Created Date Observation Date Name Description Value Unit Range Abnormal Flag Note LastModifiedBy Organization Detail LastModifiedTime 02/27/2002/26/2025 MAMMO , scree mariah, bilat eral No observ ation record ed. [place] [address], [place], [address], 03/01/2025 15:11:01 Result Notes None recorded. Problems Name Problem SNOMED Code Status Onset Date Resolution Date Notes Provider Name and Address Organization Details Recorded Time Rib pain 149907258 Active Not Available [facility] 11:56:35 Periapical abscess 885585774 Active Not Available [facility] 11:56:35 Osteoarthriti s of hip 780138013 Active Not Available [facility] 2 11:56:35 Menopausal symptom 76680029 Active Not Available [facility] 2 11:56:35 Malignant neoplasm of female breast 412101221 Active Not Available [facility] 2 11:56:35 Primary insomnia 3904930 Active Not Available [facility] 2 11:56:35 Low back pain 202207355 Active Not Available [facility] 2 11:56:35 Urinary tract infectious disease 82800639 Active 2016 Not Available [facility] 2 11:56:35 Eczema 42640542 Active 2019 Not Available [facility] 2 11:56:35 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 14548266 Active 2019 Not Available [facility] 2 11:56:35 Insomnia 316622751 Active 2019 Not Available [facility] 2 11:56:35 Menopause present 248986903 Active 2019 Not Available [facility] 2 11:56:35 Personal history of primary malignant neoplasm of breast 465077573 Active 2019 Not Available [facility] 2 11:56:35 Photosensitiv ity 91778294 Active 2020 Not Available [facility] 2 11:56:35 Osteoarthriti s of knee 200369141 Active 2020 Not Available [facility] 2 11:56:35 Hyperglycemia 68278658 Active 2020 Not Available [facility] 2 11:56:35 Fatigue 50065227 Active 2021 Not Available [facility] 2 11:56:35 Hearing loss 38012279 Active 2023 Master Valentin MD [address] [place], [address] , [facility] 4 15:39:54 Antibiotic prophylaxis indicated 528497737 Active 2023 Master Valentin MD [address] [place], [address] , [facility] 4 15:26:43 Problem Notes None recorded. Procedures Surgical History Date Name Laterality Status Provider Name and Address Organization Details Recorded Time 6 Orthopedic Surgery completed Master Valentin MD [address] [place], [address], [facility] 03/28/2016 14:26:59 Imaging Results None recorded. Procedure Notes None recorded. Medical Equipment None Reported. Allergies Allergen ID Allergen Name Allergen Category Reaction Reaction Severity Criticality Documentation Date Start Date Code Code System Note Provider Name and Address Organization Details Recorded Time 23988 iodine medicatio n angioedem a Not available Not available 10/19/2018 5933 RxNorm After IV contr ast mediu m Master Valentin MD [address] [facility], [place], [address], [facility] 9 21:53:54 5541 Substance with sulfonami de structure and antibacte rial mechanism of action (substanc e) medicatio n Not available Not available Not available 10/25/2013 15138 8003 SNOMED Claire Bonita stapleton, [facility] 4 12:40:55 Medications Name Sig [...] Not Available Not Available Not Avai lable Fulton 12 c take 2 BID 06/17 completed [...] Not Available Not Available Not Available Aurum Ursa 10 pellets twice daily 2021 active Not [...] completed Not Available Not Available Not Available Fulton 200 1m 2d; 12x 2 bid 2021 [...] Updated DateTime 4 162.56 cm 32.4 kg/m2 55110.2 4 g 97.5 [degF] 93 /min 133/80 mm[Hg] Opal [facility] 4 16:27:07 Date Recorded Body height Heart rate Body mass index (BMI) Body weight Body temperature Systolic And Diastolic Provider Name and Address Organization Details Last Updated DateTime 5 162.56 cm 90 /min 33.1 kg/m2 22365.3 3 g 97.3 [degF] 153/75 mm[Hg] [facility] 5 09:43:19 Date Recorded Systolic And Diastolic Provider Name and Address Organization Details Last Updated DateTime 03/01/2025 110/70 mm[Hg] Master Valentin MD [address] [facility], [place], [address], [facility] 03/01/2025 15:26:09 Date Recorded Body height Heart rate Body mass index (BMI) Body weight Body temperature Systolic And Diastolic Provider Name and Address Organization Details Last Updated DateTime 5 162.56 cm 92 /min 31.4 kg/m2 81215.4 g 98.1 [degF] 165/73 mm[Hg] Sampson [facility] 5 14:11:39 Date Recorded Body height Body temperature Heart rate Body mass index (BMI) Body weight Systolic And Diastolic Systolic And Diastolic Provider Name and Address Organization Details Last Updated DateTime 4 162.56 cm 98.1 [degF] 96 /min 32.7 kg/m2 91011.7 1 g 158/81 mm[Hg] 153/82 mm[Hg] [facility]pson [facility] 4 14:12:40 Date Recorded Body height Body mass index (BMI) Body weight Heart rate Body temperature Systolic And Diastolic Provider Name and Address Organization Details Last Updated DateTime 4 162.56 cm 33.3 kg/m2 90617.6 4 g 82 /min 97.4 [degF] 160/79 mm[Hg] [facility] 4 13:52:54 Social History Question Answer Notes LastModified by Organizat ion Details LastModified Time Tobacco Smoking Status Former Smoker Not Available [facility] 05/16/2020 03:29:36 Do You Have An Advance Directive? Yes [id number] Information not available 05/16/2020 Animal Exposure? Yes Informat ion not available 02/07/2014 Do You Wear A Helmet When Biking? No [id number] Information not available 05/16/2020 Are You Blind Or Do You Have Difficulty Seeing? No [id number] Information not available 05/16/2020 Is Blood Transfusion Acceptable In An Emergency? Yes [id number] Information not available 05/16/2020 What Is Your Level Of Caffeine Consumption? Moderate [id number] Information not available 05/16/2020 How Much Tobacco Do You Chew? None [id number] Information not available 05/16/2020 What Type Of Dressed Poultry Grader Do You Use? None [id number] Information not available 05/16/2020 Are You Deaf Or Do You Have Serious Difficulty Hearing? No [id number] Information not available 05/16/2020 What Type Of Diet Are You Following? GLUTENFREE [id number] Information not available 05/16/2020 Education Post Graduate Information not available 02/07/2014 Have There Been Any Changes To Your Family Or Social Situation? Yes [id number] Information not available 05/16/2020 What Is The Fluoride Status Of Your Home? Fluoridated [id number] Information not available 05/16/2020 Are There Any Guns Present In Your Home? Yes [id number] Information not available 05/16/2020 Hard Of Hearing Or Deaf In One Or Both Ears? No Information not available 02/07/2014 Single Or Multi-level Home/work? Multi Level Home Information not available 02/07/2014 What Is Your Home Situation? Both Parents [id number] Information not available 05/16/2020 Do You Use Insect Repellent Routinely? Yes [id number] Information not available 05/16/2020 Legally Blind In One Or Both Eyes? No Information not available 02/07/2014 Live Alone Or With Others? With Others Information not available 02/07/2014 Marital Status Informatio n not available 02/07/2014 Mosquito Repellent Used Routinely Yes Information not available 02/07/2014 How Many Children Do You Have? 2 [id number] Information not available 05/16/2020 What Is Your Parents' Marital Status? [id number] Information not available 05/16/2020 Performs Monthly Self-breast Exam? No Information not available 02/07/2014 Pool Exposure No Information not available 02/07/2014 Do You Use Your Seat Belt Or Car Seat Routinely? Yes [id number] Information not available 05/16/2020 Seat Belts Used Routinely No Information not available 02/07/2014 Are You Sexually Active? No [id number] Information not available 05/16/2020 Do You Have Any Siblings? 1 Sister [id number] Information not available 05/16/2020 Smoke Alarm In Home No Information not available 02/07/2014 Do You Have Smoke And Carbon Monoxide Detectors In Your Home? Yes [id number] Information not available 05/16/2020 Are You Passively Exposed To Smoke? No Information not available 02/07/2014 General Stress Level Low Information not available 02/07/2014 Do You Use Sunscreen Routinely? Yes [id number] Information not available 05/16/2020 How Many Years Have You Smoked Tobacco? 25 [id number] Information not available 05/16/2020 Do You Have Difficulty Walking Or Climbing Stairs? Yes [id number] Information not available 05/16/2020 Work Related Injury? No Information not available 02/07/2014 Sex: Unknown Functional Status Question Answer Note LastModified by Organizat ion Details LastModified Time What is your level of alcohol consumption? Occasional [id number] Information not available 05/16/2020 Are you currently employed? No [id number] Information not available 05/16/2020 Do you have difficulty doing errands alone? No [id number] Information not available 05/16/2020 Do you have difficulty dressing, bathing, grooming, or toileting? No [id number] Information not available 05/16/2020 What is your exercise level? Moderate [id number] Information not available 05/16/2020 Mental Status Question Answer Note LastModified by Organization D etails LastModified Time Do you have difficulty concentrating, remembering or making decisions? No [id number] Information no t available 05/16/2020 Are you or have you been involved with bullying? No [id number] Information not available 05/16/2020 Family History Relationship [...] Stones N Blood Diseases N Hyperthyroidism N Depression Y COPD N Hypothyroidism N Developmental or Behavioral Disorders N Anxiety Disorder N Muscle, Joint, or Bone Problems Y Vision or Eye Problems Y Arthritis N Head Injury/Concussion N Congenital Anomalies N Cancer Y Stroke N ADHD N Bladder or Kidney Problems Y Hospital Admission other than N High Cholesterol N Liver Disease N Fibromyalgia N Headaches N Kidney Disease N Ear or Hearing [...] 50 mcg/0.25mL dose 10/29/2021 completed Sampson stapleton [facility] 06/17/2022 17:05:40 COVID-19, mRNA, LNP-S, PF, 100 mcg/0.5mL dose or 50 mcg/0.25mL dose 04/23/2022 completed Sampson stapleton, [facility] 06/17/2022 17:05:40 COVID-19, mRNA, LNP-S, bivalent, PF, 50 mcg/0.5 mL or 25mcg/0.25 mL dose 04/23/2022 completed Sampson stapleton [facility] 06/17/2022 17:05:40 Past Encounters Encounter ID Performer Location Encounter Start Date Encounter Closed Date Diagnosis/Indication Diagnosis SNOMED-CT Code Diagnosis ICD10 Code Diagnosis IMO Codes Diagnosis Note [id number] Master Valentin MD Main Office [address] [place] [id number] 10/25/2013 12:09:56 10/25/2013 13:41:20 Malignant neoplasm of female breast 276817225 Primary insomnia 5713417 Low back pain 749533237 [id number] Master Valentin MD Main Office [address] [place] [id number] 02/07/2014 16:44:45 02/07/2014 17:57:23 Malignant neoplasm of female breast 510983435 Primary insomnia 3138590 Low back pain 015265144 Rib pain 252892963 [id number] Master Valentin MD Main Office [address] [place] [address] 05/19/2014 18:03:06 05/19/2014 19:13:16 Malignant neoplasm of female breast 030786570 Primary insomnia 9589704 Low back pain 440940576 Rib pain 872041872 Periapical abscess 883015963 [id number] Master Valentin MD Main Office [address] [place] [address] 08/25/2014 15:56:36 08/25/2014 17:49:38 Malignant neoplasm of female breast 261743147 Primary insomnia 1126862 Low back pain 577027452 Rib pain 437351986 Periapical abscess 154392811 Osteoarthritis of hip 857893435 [id number] Master Valentin MD Main Office [address] [place] [address] 12/20/2014 15:06:38 12/20/2014 16:29:57 Malignant neoplasm of female breast 869957270 Primary insomnia 2930020 Low back pain 395997173 Rib pain 888484871 Periapical abscess 656600785 Osteoarthritis of hip 207528318 [id number] Master Valentin MD Main Office [address] [place] [address] 03/22/2015 14:09:46 03/22/2015 15:45:26 Malignant neoplasm of female breast 412401924 Primary insomnia 4258162 Low back pain 180544521 Rib pain 427460266 Periapical abscess 442768434 Osteoarthritis of hip 046223128 [id number] Master Valentin MD Main Office [address] [place] [id number] 07/04/2015 15:58:13 07/04/2015 17:54:12 Malignant neoplasm of female breast 483889588 C50.919 Primary insomnia 2104341 F51.01 Low back pain 818584926 M54.5 Rib pain 172610812 R07.8 1 Periapical abscess 20903 1005 K04.7 Osteoarthritis of hip 23 2112663 M16.9 [id number] Master Valentin MD Main Office [address] [place] [id number] 10/25/2015 17:47:30 10/25/2015 19:40:30 Osteoarthritis of hip 091520838 M16.9 Malignant neoplasm of female breast 007497211 C50.919 Low back pain 183286143 M54.5 Periapical abscess 55217 1005 K04.7 Rib pain 768544430 R07.8 1 [id number] Master Valentin MD Main Office [address] [place] [id number] 01/24/2016 13:06:51 01/24/2016 14:37:01 Osteoarthritis of hip 447865483 M16.9 Malignant neoplasm of female breast 993454632 C50.919 Pre-surger y evaluation 024006183 Z01.818 [id number] Master Valentin MD Main Office [address] [place] [address] 03/28/2016 13:24:26 03/28/2016 15:21:21 Osteoarthritis of hip 959170662 M16.9 Malignant neoplasm of female breast 812216717 C50.919 Menopausal symptom 11933 002 N95.1 Low back pain 040685852 M54.5 [id number] Master Valentin MD Main Office [address] [place] [address] 06/27/2016 13:30:14 06/27/2016 14:46:39 Upper respiratory infection 20740236 J06.9 Osteoarthritis of hip 23 9546935 M16.9 Malignant neoplasm of female breast 815079280 C50.919 Menopausal symptom 41708 002 N95.1 Low back pain 959313676 M54.5 [id number] Master Valentin MD Main Office [address] [place] [address] 09/17/2016 14:34:55 09/17/2016 16:00:13 Nasal congestion 73155114 R09.81 Dysuria 99528368 R30.0 Malignant neoplasm of female breast 031693571 C50.919 Osteoarthritis of hip 23 0566577 M16.9 Menopausal symptom 16697 002 N95.1 Low back pain 159945537 M54.5 [id number] Master Valentin MD Main Office [address] [place] [id number] 3 12/26/2016 15:46:16 12/26/2016 17:18:53 Nasal congestion 19215565 R09.81 Malignant neoplasm of female breast 539750558 C50.919 Osteoarthritis of hip 23 8603015 M16.9 Menopausal symptom 33561 002 N95.1 Low back pain 724190597 M54.5 Knee pain 01675593 M25.5 69 [id number] Master Valentin MD Main Office [address] [place] [id number] 3 03/27/2017 15:50:28 03/27/2017 17:42:56 Malignant neoplasm of female breast 245692535 C50.919 Nasal congestion 4548307 0 R09.81 Osteoarthritis of hip 23 4703295 M16.9 Menopausal symptom 07249 002 N95.1 Low back pain 808377527 M54.5 Knee pain 88461442 M25.5 69 [id number] Master Valentin MD Main Office [address] [place] [address] 06/19/2017 14:19:16 06/19/2017 15:47:43 Malignant neoplasm of female breast 466713943 C50.919 Nasal congestion 9396939 0 R09.81 Osteoarthritis of hip 23 2925792 M16.9 Menopausal symptom 83726 002 N95.1 Low back pain 205554352 M54.5 Knee pain 47069836 M25.5 69 [id number] Master Valentin MD Main Office [address] [place] [id number] 3 11/03/2017 14:52:51 11/03/2017 16:28:27 Malignant neoplasm of female breast 478693386 C50.919 Nasal congestion 8300357 0 R09.81 Osteoarthritis of hip 23 3997908 M16.9 Menopausal symptom 38193 002 N95.1 Low back pain 113731880 M54.5 Knee pain 17110991 M25.5 69 Intertrigo 99668539 L30. 4 Dry eyes 997666805 H04.1 29 [id number] Master Valentin MD Main Office [address] [place] [id number] 3 03/06/2018 13:55:44 03/06/2018 14:53:17 Malignant neoplasm of female breast 987707941 C50.919 Nasal congestion 1487717 0 R09.81 Osteoarthritis of hip 23 5607690 M16.9 Menopausal symptom 42391 002 N95.1 Low back pain 546492845 M54.5 Knee pain 41705068 M25.5 69 Intertrigo 18733744 L30. 4 Dry eyes 287510101 H04.1 29 Glaucoma 84640914 H40.9 Abnormal gait 68366912 R 26.9 History of total hip arthroplasty 2070839380 06 Z96.649 Acquired genu valgum 520 55255 M21.069 [id number] Master Valentin MD Main Office [address] [place] [address] 3 06/26/2018 14:04:31 06/26/2018 15:56:24 Malignant neoplasm of female breast 409631946 C50.919 Nasal congestion 4931671 0 R09.81 Osteoarthritis of hip 23 4753119 M16.9 Menopausal symptom 84849 002 N95.1 Low back pain 840612856 M54.5 Knee pain 07917531 M25.5 69 Intertrigo 86861649 L30. 4 Dry eyes 479458043 H04.1 29 Glaucoma 10636252 H40.9 Abnormal gait 99054321 R 26.9 History of total hip arthroplasty 8528162421 06 Z96.649 Acquired genu valgum 520 24167 M21.069 Adjustment disorder 1722 6007 F43.20 [id number] Master Valentin MD Main Office [address] [place] [address] 10/21/2018 13:02:32 10/21/2018 14:04:00 Malignant neoplasm of female breast 267233044 C50.919 Nasal congestion 8177408 0 R09.81 Osteoarthritis of hip 23 0834872 M16.9 Menopausal symptom 63094 002 N95.1 Low back pain 339945083 M54.5 Knee pain 39946381 M25.5 69 Intertrigo 40666662 L30. 4 Dry eyes 824819423 H04.1 29 Glaucoma 82646420 H40.9 Abnormal gait 29411469 R 26.9 History of total hip arthroplasty 1217270455 06 Z96.649 Acquired genu valgum 520 01406 M21.069 Screening for malignant neoplasm of colon 514138716 Z12.11 [id number] Master Valentin MD Main Office [address] [place] [address] 01/19/2019 14:31:06 01/19/2019 16:07:05 Malignant neoplasm of female breast 694711106 C50.919 Nasal congestion 6575780 0 R09.81 Osteoarthritis of hip 23 2806296 M16.9 Menopausal symptom 16839 002 N95.1 Low back pain 929232925 M54.5 Knee pain 44966884 M25.5 69 Intertrigo 70056384 L30. 4 Dry eyes 897845828 H04.1 29 Glaucoma 38296477 H40.9 Abnormal gait 59047442 R 26.9 History of total hip arthroplasty 6457944174 06 Z96.649 Acquired genu valgum 520 36683 M21.069 Adjustment disorder 1722 6007 F43.20 [id number] Master Valentin MD Main Office [address] [place] [address] 3 04/20/2019 14:28:45 04/20/2019 15:40:17 Malignant neoplasm of female breast 978472515 C50.919 Nasal congestion 3598803 0 R09.81 Osteoarthritis of hip 23 1993832 M16.9 Menopausal symptom 92418 002 N95.1 Low back pain 586324222 M54.5 Knee pain 98092492 M25.5 69 Intertrigo 45320338 L30. 4 Dry eyes 238775514 H04.1 29 Glaucoma 98690610 H40.9 Abnormal gait 70422622 R 26.9 History of total hip arthroplasty 5674037281 06 Z96.649 Acquired genu valgum 520 18309 M21.069 Adjustment disorder 1722 6007 F43.20 [id number] Master Valentin MD Main Office [address] [place] [address] 08/09/2019 10:20:02 08/09/2019 11:48:56 Malignant neoplasm of female breast 031814979 C50.919 Nasal congestion 2223623 0 R09.81 Osteoarthritis of hip 23 2661424 M16.9 Menopausal symptom 75837 002 N95.1 Low back pain 266157466 M54.5 Knee pain 91833684 M25.5 69 Intertrigo 53158618 L30. 4 Dry eyes 312829243 H04.1 29 Glaucoma 03856105 H40.9 Abnormal gait 59175413 R 26.9 History of total hip arthroplasty 1766087779 06 Z96.649 Acquired genu valgum 520 61187 M21.069 Adjustment disorder 1722 6007 F43.20 Contact dermatitis 72614 004 L25.9 Carcinomat osis of peritoneal cavity 796883380 C78.6 [id number] Master Valentin MD Main Office [address] [place] [address] 3 09/23/2019 14:44:18 09/23/2019 16:53:16 Malignant neoplasm of female breast 585242401 C50.919 Nasal congestion 8737436 0 R09.81 Osteoarthritis of hip 23 2676867 M16.9 Menopausal symptom 01744 002 N95.1 Low back pain 653196846 M54.5 Knee pain 19005327 M25.5 69 Intertrigo 77831528 L30. 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6 Eczema 03765052 L30.9 Insomnia 469860018 G47.0 0 [id number] Master Valentin MD Main Office [address] [place] [address] 13296-368 3 06/20/2020 13:09:27 06/20/2020 14:08:20 Menopause present 938417338 N95.1 Personal h istory of primary malignant neoplasm of breast 785560567 Z85.3 [id number] Master Valentin MD Main Office [address] [place] [address] 3 08/16/2020 14:57:14 08/16/2020 16:18:39 Menopause present 816193580 N95.1 Personal h istory of primary malignant neoplasm of breast 124215313 Z85.3 Adjustment disorder 1722 6007 F43.20 Malignant neoplasm of female breast 572018941 C50.919 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 08276676 C78.6 Eczema 85498296 L30.9 Insomnia 155849908 G47.0 0 652011 Master Valentin MD Main Office [address] [place] [address] 3 11/13/2020 15:36:29 11/13/2020 17:09:50 Menopause present 506963480 N95.1 Personal h istory of primary malignant neoplasm of breast 352980789 Z85.3 Adjustment disorder 1722 6007 F43.20 Malignant neoplasm of female breast 931541837 C50.919 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 32522439 C78.6 Eczema 42198056 L30.9 Insomnia 834748866 G47.0 0 Osteoarthr itis of knee 552433296 M17.9 535574 Master Valentin MD Main Office [address] [place] [address] 3 12/20/2020 17:30:01 12/20/2020 19:34:11 Impetiginized atopic dermatitis 246831367 L01.1 [id number] Master Valentin MD Main Office [address] [place] [address] 63870-911 3 02/14/2021 15:54:10 02/14/2021 17:06:22 Photosensitivity 75060691 L56.8 Menopause present 281630 006 N95.1 Personal h istory of primary malignant neoplasm of breast 588410610 Z85.3 Adjustment disorder 1722 6007 F43.20 Malignant neoplasm of female breast 407739404 C50.919 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 06940172 C78.6 Eczema 91086184 L30.9 Insomnia 438589663 G47.0 0 Osteoarthr itis of knee 140458201 M17.9 [id number] Master Valentin MD Main Office [address] [place] [address] 12159-836 3 05/16/2021 14:39:30 05/16/2021 16:17:54 Hyperglycemia 65262996 R73.9 Photosensitivity 1122451 6 L56.8 Menopause present 569950 006 N95.1 Personal h istory of primary malignant neoplasm of breast 575204306 Z85.3 Adjustment disorder 1722 6007 F43.20 Malignant neoplasm of female breast 472650448 C50.919 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 63052893 C78.6 Eczema 81448700 L30.9 Insomnia 578757430 G47.0 0 Osteoarthr itis of knee 733022619 M17.9 Idiopathic peripheral neuropathy 53228735 G60.9 854247 Master Valentin MD Main Office [address] [place] [address] 68693-526 3 08/14/2021 13:32:55 08/14/2021 15:13:28 Hyperglycemia 80280308 R73.9 Malignant neoplasm of female breast 367907269 C50.919 Menopausal symptom 36466 002 N95.1 Osteoarthritis of hip 23 2636809 M16.9 Personal h istory of primary malignant neoplasm of breast 976518541 Z85.3 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 16979376 C78.6 [id number] Master Valentin MD Main Office [address] [place] [address] 72828-925 3 11/05/2021 16:41:58 11/05/2021 18:12:28 Hyperglycemia 43302906 R73.9 Malignant neoplasm of female breast 178407316 C50.919 Menopausal symptom 44062 002 N95.1 Osteoarthritis of hip 23 6127159 M16.9 Personal h istory of primary malignant neoplasm of breast 287068487 Z85.3 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 60519237 C78.6 [id number] Master Valentin MD Main Office [address] [place] [address] 91374-381 3 03/07/2022 14:59:03 03/07/2022 16:59:35 Hyperglycemia 18525406 R73.9 Malignant neoplasm of female breast 120855069 C50.919 Menopausal symptom 14772 002 N95.1 Osteoarthritis of hip 23 5950874 M16.9 Personal h istory of primary malignant neoplasm of breast 921589303 Z85.3 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 51790397 C78.6 Fatigue 85481155 R53.83 [id number] Master Valentin MD Main Office [address] [place] [address] 07417-990 3 06/17/2022 16:42:06 06/17/2022 18:46:50 Hyperglycemia 43925882 R73.9 Malignant neoplasm of female breast 143542067 C50.919 Menopausal symptom 54770 002 N95.1 Osteoarthritis of hip 23 0080174 M16.9 Personal h istory of primary malignant neoplasm of breast 666297651 Z85.3 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 80211241 C78.6 Fatigue 64735157 R53.83 [id number] Master Valentin MD Main Office [address] [place] [address] 75397-580 3 09/16/2022 15:31:41 09/16/2022 17:36:13 Fatigue 97247979 R53.83 Hyperglycemia 06293050 R 73.9 Malignant neoplasm of female breast 004462790 C50.919 Menopausal symptom 31583 002 N95.1 Osteoarthritis of hip 23 5136958 M16.9 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 24143051 C78.6 018994 Master Valentin MD Main Office [address] [place] [address] 71047-992 3 12/23/2022 15:32:52 12/23/2022 16:59:44 Fatigue 06999256 R53.83 Hyperglycemia 43072833 R 73.9 Malignant neoplasm of female breast 688028518 C50.919 Menopausal symptom 51141 002 N95.1 Osteoarthritis of hip 23 1191454 M16.9 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 09184043 C78.6 [id number] Master Valentin MD Main Office [address] [place] [address] 84919-876 3 03/24/2023 15:30:14 03/24/2023 17:12:17 Left side sciatica 6951384901 39187 M54.32 Fatigue 51873816 R53.83 Hyperglycemia 91432989 R 73.9 Malignant neoplasm of female breast 158542876 C50.919 Menopausal symptom 94582 002 N95.1 Osteoarthritis of hip 23 1702210 M16.9 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 29832748 C78.6 [id number] Master Valentin MD Main Office [address] [place] [address] 04895-633 3 09/22/2023 16:09:11 09/22/2023 18:13:22 Fatigue 05259724 R53.83 Hyperglycemia 11486927 R 73.9 Malignant neoplasm of female breast 996970919 C50.919 Menopausal symptom 31537 002 N95.1 Osteoarthritis of hip 23 0843782 M16.9 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 67596081 C78.6 Antibiotic prophylaxis indicated 722277883 Z78.9 [id number] Master Valentin MD Main Office [address] [place] [address] 87357-718 3 03/25/2024 14:00:09 03/25/2024 15:53:31 Malignant neoplasm of female breast 644225262 C50.919 Prolonged grief disorder 891957483 F43.81 Hearing loss 76048775 H9 1.93 [id number] Master Valentin MD Main Office [address] [place] [address] 75046-515 3 06/24/2024 13:35:59 06/24/2024 15:34:21 Fatigue 73653428 R53.83 Hyperglycemia 67799275 R 73.9 Malignant neoplasm of female breast 164767731 C50.919 Menopausal symptom 52319 002 N95.1 Osteoarthritis of hip 23 5301379 M16.9 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 75808872 C78.6 Antibiotic prophylaxis indicated 434962835 Z78.9 [id number] Master Valentin MD Main Office [address] [place] [address] 3 10/29/2024 09:24:36 10/29/2024 11:13:16 Fatigue 44609044 R53.83 Hyperglycemia 58101240 R 73.9 Malignant neoplasm of female breast 346033005 C50.919 Menopausal symptom 31011 002 N95.1 Osteoarthritis of hip 23 8322343 M16.9 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 45814302 C78.6 Antibiotic prophylaxis indicated 827069050 Z78.9 [id number] Master Valentin MD Main Office [address] [place] [address] 3 03/01/2025 13:59:44 03/01/2025 16:10:01 Fatigue 38417323 R53.83 Hyperglycemia 69205965 R 73.9 Malignant neoplasm of female breast 718648437 C50.919 Menopausal symptom 61344 002 N95.1 Osteoarthritis of hip 23 7011632 M16.9 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 28206031 C78.6 Antibiotic prophylaxis indicated 612116121 Z78.9 Health Concerns Section Related Observation LastModified by Organization Detai ls LastModified Time None Recorded Concern Status LastModified by Organization Details LastModified Time None Recorded Advance Directives Directive Y: Payers Insurance Date Sequence Insurance Name Policy Number Policy Tucker Covered Member ID Tucker Member ID Guarantor Name 01/21/2019 2 *SELF PAY* Charisma mayo Diel Juanita 06/18/2024 1 [facility] (MEDICARE REPLACEMENT/A DVANTAGE - PPO) [id number] Chula Diel Juanita [id number] Chula Diel Juanita 01/21/2019 3 MEDICARE [place]: [facility] [place] Juanita [id number] Chula Diel Juanita 09/16/2022 1 [facility] (MEDICARE REPLACEMENT/A DVANTAGE - PPO) [id number] Chula Juanita [id number] Chula Diel Juanita 06/18/2024 1 *SELF PAY* Charisma mayo Diel Juanita 10/24/2015 1 *SELF PAY* Charisma mayo [facility] Juanita Notes Date Note Type Note [...] the mornings.Mood mostly even. Master Valentin MD [address] [place], [address], [facility] 09/22/2023 17:48:13 4 text/html Follow up.She was sick around March 01. [place] dizzy and weak and lacked appetite for [...] smell is more acute. Master Valentin MD [address] [place], [address], [facility] 03/25/2024 15:41:12 4 text/html Follow upStuffy nose.Breathes well at night.Stuffy in morning on waking. 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 Moura at [facility]. Still is somewhat stiff. Not much pain in it. Her mother 2019 A 94 old age. Father 1981 A 62 of pancreatic cancer. She feels their presence. She saw Dr. Renny Harrington for ENT consultation with mild downsloping upper frequency hearing loss, not yet needing hearing aids. Sleeps mostly well. Master Valentin MD [address] [place], [address], [facility] 06/24/2024 15:28:18 5 text/html Follow [...] evidence of metastatic disease Master Valentin MD [address] [place], [address], [facility] 10/29/2024 10:43:33 5 text/html Follow up.Sad times we live in.But can rise above it.Turned 80.Uses Walking stick now which she carries.She typically does not have back pain. New oncologist Dr. Vicente in [facility] is her new oncologist, Dr. Kaila Miller having retired. He is part of the [employer] system. Master Valentin MD [address] [place], [address], [facility] 03/01/2025 15:32:58 OBGyn Episode No OBEpisode recorded.
--- OUTSIDE RECORDS SUMMARY | 2025-06-28 16:16 | XMS_ITS | Encounter Summary ---
Author Organization [facility] Address 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 Gender Identity Not on file Sexual Orientation Not on file documented as of this encounter Plan of Treatment Upcoming Encounters Date Type Department Care Team (Late st Contact Info) Description 06/30/2025 2:30 PM FURNACE CLEANER Office Visit [facility] Oncology and Hematology - Rui [address] [facility] [address] [place] [address] Sinan Vicente MD [address] [facility] [address] [place] [address] documented as of this encounter Procedures Procedure Name Priority Date/Time Associated Diagnosis Comments CANCER ANTIGEN 27-29 Routine 11/29/2008 9:49 PM CDT COMPREHENSIVE METABOLIC PANEL Routine 11/29/2008 9:49 PM CDT documented in this encounter Results * CANCER ANTIGEN 27-29 (11/29/2008 9:49 PM CDT) Pathologist [facility] CA 27-29 14 <38 U/mL [facility] Comment: THIS TEST WAS PERFORMED USING THE SIEMENS (DAVID) CHEMILUMINESCENT METHOD. VALUES OBTAINED FROM DIFFERENT ASSAY METHODS CANNOT BE USED INTERCHANGEABLY. CA27.29 LEVELS, REGARDLESS OF VALUE, SHOULD NOT BE INTERPRETED ABSOLUTE EVIDENCE OF THE PRESENCE OR ABSENCE OF DISEASE. Lab test performed by: [facility] [address] [place] [address] JANEEN CRAWFORD MDThitamera test was performed using the Skwibln/David CA 27.29 Assay. 11/29/2008 9:49 PM CDT 11/29/2008 9:57 PM CDT us Nola Morgan MD CHEMISTRY ORDERABLES COM Carolyn [employer] Alpha Result INTERFACE SYSTEM Refer to clinic/hospital department [facility] CLIA# [id number] 5 [facility] [place] [address] * (ABNORMAL) COMPREHENSIVE METABOLIC PANEL (11/29/2008 9:49 PM CDT) [facility] CREATININE 0.77 0.51 - 0.95 mg/dL [facility] ALT 28 0 - 31 U/L [facility] SODIUM 139 135 - 145 mmol/L [facility] ALKALINE PHOSPHATASE 86 35 - 104 U/L [facility] CO2 25 22 - 30 mmol/L [facility] BILIRUBIN TOTAL 0.3 0.2 - 1.0 mg/dL [facility] POTASSIUM 4.1 3.5 - 4.9 mmol/L [facility] TOTAL PROTEIN 7.2 6.3 - 8.6 g/dL [facility] GLUCOSE 100(H) 65 - 99 mg/dL [facility] AST 26 12 - 32 U/L [facility] BUN 13 6 - 20 mg/dL [facility] CALCIUM 9.8 8.6 - 10.2 mg/dL [facility] ALBUMIN 4.5 3.4 - 4.8 g/dL [facility] CHLORIDE 102 96 - 108 mmol/L [facility] GFR, >60 >=60 mL/min/1. 7 sq meter [facility] GFR >60 >=60 mL/min/1. 7 sq meter [facility] Comment: Modification of Diet in Renal Disease (MDRD) study formula. Estimated GFR rate interpretative information for both Americans and non- Americans is available on the [facility] Intranet at: [email or web address] Select: Lab Policies and Procedures Select: Reference Ranges - GFR Blood specimen (specimen) 11/29/2008 9:49 PM CDT 11/29/2008 9:49 PM CDT Nola Morgan MD CHEMISTRY ORDERABLES Edited INTERFACE SYSTEM Refer to clinic/hospital department [facility] CLIA# [id number] [address] [place] [address] documented in this encounter Visit Diagnoses Diagnosis Malignant neoplasm of upper-outer quadrant of female breast (CMS/HCC) Malignant neoplasm of upper-outer quadrant of female breast documented in this encounter Care Teams Dial Brusher Relationship Specialty Start Date End Date Master Valentin MD [address] [place] [address] PCP - General 05/23/15 documented as of this encounter
--- OUTSIDE RECORDS SUMMARY | 2025-06-28 16:16 | XMS_ITS | Clinical Summary ---
Author Organization [facility] Address [address] [place] [address] [place] [address] Care Team Providers Care Banbury Mill Operator Name Role Phone Master Valentin MD Primary Care Provider [phone]- [phone] Yaya PINON MD, [place] Unavailable [phone] Source Comments [facility],non-owned Affiliates and Associated Physician Practices is amultiple site organization consisting of ambulatory clinics and hospital sitesin [place], [place], [place] and [place]. This disclosure is being madepursuant to the Care Everywhere program and may not contain all information available regarding this patient. 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
[2025-06-28 16:21] LABS: Alanine Aminotransferase 34 U/L (6-35); Albumin Level 4.4 g/dL (3.5-5.1); Alkaline Phosphatase 66 U/L (38-126); Anion Gap 6 mmol/L (4-12); Aspartate Amino Transferase 48 U/L (14-36); Bilirubin,Total 0.6 mg/dL (0.2-1.3); Blood Urea Nitrogen 18 mg/dL (7-17); Calcium 9.7 mg/dL (8.4-10.2); Carbon Dioxide 29 mmol/L (22-30); Chloride 104 mmol/L (98-107); Estimated Glomerular Filt Rate > 60; Glucose 113 mg/dL (65-110); Potassium 4.5 mmol/L (3.4-5.0); Sodium 139 mmol/L (137-145); Total Protein 7.1 g/dL (6.3-8.2)
== END 2025-06-28 13:57 | disposition home or self-care (01) ==
LOC: ANHLAB 13:57
PROVIDERS: Visit Provider Internal Medicine Hematology & Oncology
DX: C50.011 Malignant neoplasm of nipple and areola, right female breast (principal)
CPT/HCPCS: 36415; 80053; 85025; 86300